=== PATIENT | male | born 1965 | race Caucasian/White ===

== ENCOUNTER 2016-06-03 12:31 | Emergency (ER) | payer BC, OTHER ==
[~2016-06-03] VITALS: Ht 172.7 cm; Wt 91.5 kg
[~2016-06-03 12:31] MED LIST: CALCTAB5 PO; IPRA17AE2 INH; PANT40TA PO; RANI300T2 PO; SOTA80TA PO; SUCR1TAB PO; TPRSR100 PO; WARF5TAB90 PO; [UNRECOGNIZED DRUG - CODE]
[2016-06-03 12:40] VITALS: TEMP 36.8; Ht 172.7 cm; Wt 91.5 kg
[2016-06-03] MEDS ORDERED: CETI10TA10 PO (13:04)
[2016-06-03] MEDS ORDERED: VTMD1000 PO (13:04)
[2016-06-03] MEDS ORDERED: CALC600T PO (14:31)
[2016-06-03] MEDS ORDERED: FLUT0.15 NAE (14:32)
[2016-06-03] MEDS ORDERED: ATRIN INH (14:32)
[2016-06-03] MEDS ORDERED: LISI-729 PO (14:33)
[2016-06-03] MEDS ORDERED: METO25TA3 PO (14:33)
[2016-06-03 15:07] LABS: BASO % 0.4 %; BASO ABS # 0.05 K/uL (0-0.2); COMPLETE YES; EOS % 0.5 %; HEMATOCRIT 44.4 % (42-52); IG% 0.4 %; LYMPH % 24.4 %; LYMPH ABS # 2.86 K/uL (1.2-3.4); MEAN CELL VOLUME 89.3 fL (80-100); MEAN CORPUSCULAR HGB CONC 35.8 g/dl (32-36); MEAN PLATELET VOLUME 10.1 fL (7.4-10.4); MONO % 10.7 %; NEUT % 63.6 %; PLATELET COUNT 250 K/uL (130-400); RED BLOOD COUNT 4.97 M/uL (4.7-6.1); WHITE BLOOD COUNT 11.73 K/uL (4.8-10.8)
[2016-06-03 15:36] LABS: BLOOD UREA NITROGEN 8 mg/dl (7-18); BUN/CREATININE RATIO 9.8 (10-20); CALCIUM 9.6 mg/dl (8.5-10.1); CARBON DIOXIDE 30 mmol/L (21-32); CHLORIDE 103 mmol/L (98-107); CREATININE 0.85 mg/dl (0.60-1.40); GLUCOSE 99 mg/dl (70-99); MAGNESIUM 2.2 mg/dl (1.8-2.4); POTASSIUM 3.9 mmol/L (3.5-5.1); SODIUM 139 mmol/L (136-145)
--- NOTE | 2016-06-03 15:45 | DIAGNOSTIC IMAGING REPORT ---
SINGLE VIEW CHEST CLINICAL HISTORY: Cough. FINDINGS: An AP, portable, upright chest radiograph is compared to study dated 11/17/2014. The examination is degraded by portable technique and apical lordotic positioning. The patient is status post midline sternotomy and cardiac valve surgery. The heart is enlarged. The pulmonary vasculature is noncongested. The lungs and pleural spaces are clear. No pneumothorax is seen. The bony thorax is grossly intact. IMPRESSION: Cardiomegaly with no acute cardiopulmonary abnormality. Electronically signed by: Ivan Maya M.D. 06/03/2016 3:43 PM Dictated Date/Time: 06/03/2016 3:42 PM
[2016-06-03] MEDS ORDERED: AMOX875T PO (15:54)
[2016-06-03 16:54] VITALS: BP 128/83; PULSE 61; O2SAT 96
--- NOTE | 2016-06-03 17:55 | EMERGENCY ROOM VISIT NOTE ---
History Report prepared by Ambre: Kirsty Alexandra Under the Supervision of: Dr. Pasquale Lyles M.D. First contact with patient: 14:33 Chief Complaint: CARDIAC ASSESSMENT Stated Complaint: COUGHING UP FLUID, EYES HURT, POSSIBLE AFIB. Nursing Triage Summary: Triage note Pt reports "i have a bad sinus headache and my eyes hurt and i am blowing my nose throwing up, i think i have been tripping back and forth between a-fib ." pt reports pain in right lower back since 1130. History of Present Illness The patient is a 50 year old male who presents to the Emergency Room with complaints of worsened sinus pressure since yesterday. The patient has a history of sinus infections and states that he has been symptomatic for several months. He was initially on antibiotics "a long while ago" without improvement of his symptoms. He also complains of sinus congestion. Today, the patient had a productive cough with clear mucus that resolved about an hour ago. He has a history of chronic intermittent a-fib and he states that his presenting symptom is a cough. He was concerned that he may have been in atrial fibrillation. He is on Sotalol. He states his heart rate was previously in the 30s and so his sotalol was decreased. Denies chest pain, shortness of breath, or other complaints. He is on Plavix and aspirin. He is not a smoker. Source of History: patient Onset: yesterday Position: other (sinuses) Quality: pressure Timing: worsening Modifying Factors (Worsening): other (light) Associated Symptoms: + cough (resolved), No SOB, No chest pain Note: Other symptoms: congestion Review of Systems See HPI for pertinent positives & negatives. A total of 10 systems reviewed and were otherwise negative. Past Medical & Surgical Medical Problems: (1) A-fib Surgical Problems: (1) H/O mitral valve repair Family History Diabetes mellitus FHx: gallbladder disease Hypertension Social History Smoking Status: Never Smoker Alcohol Use: none Marital Status: Housing Status: lives with family Occupation Status: employed Current/Historical Medications Scheduled Amoxicillin & Pot Clavulanate (Augmentin 875-125 mg), 875 MG PO BID Aspirin (Aspirin Chewable), 81 MG PO DAILY Calcium Carbonate (Calcium 600), 600 MG PO DAILY Cetirizine Hcl (Zyrtec), 10 MG PO DAILY Cholecalciferol (Vitamin D3), 5,000 UNITS PO DAILY Fluticasone Propionate (Nasal) (Flonase Allergy Relief), 2 SPRAYS DEMARCO DAILY Ipratropium [place] (Atrovent Hfa), 2 PUFFS INH QID Lisinopril (Zestril), 5 MG PO DAILY Metoprolol Succ (Toprol Xl) (Toprol-Xl), 25 MG PO BID Ranitidine (Zantac), 300 MG PO DAILY Sotalol Hcl (Sotalol Hcl), 1 TAB PO BID Allergies Coded Allergies: BEE STING (Unverified Allergy, Unknown, DIFFICULTY BREATHING, 06/03/16) Physical Exam Vital Signs Date Time Temp Pulse Resp B/P Pulse Ox O2 Delivery O2 Flow Rate FiO2 06/03/16 16:54 61 24 128/83 96 06/03/16 14:35 50 18 148/90 06/03/16 14:35 49 06/03/16 12:40 36.8 49 18 175/93 97 Room Air Physical Exam Constitutional: Vital signs reviewed. Eyes: Pupils are equal round reactive to light. Conjunctiva are noninjected. ENT: Sinus tenderness to the maxillary sinuses. Inflamed nasal turbinates bilaterally. Pharynx is clear without erythema or exudate. Mucous membranes are moist. Neck supple without meningeal signs. Respiratory: Clear to auscultation bilaterally. Breath sounds are equal bilaterally. Cardiovascular: Bradycardic at 50 BPM and regular rhythm. No rubs or gallops. GI: Soft, nondistended and nontender. Bowel sounds are present. Musculoskeletal: No peripheral edema. No lower extremity tenderness. Integumentary: No cyanosis. Neurological: The patient is awake and alert. No focal deficits. Psychiatric: Normal affect. Medical Decision & Procedures ER Provider Diagnostic Interpretation: Radiology results as stated below per my review and the radiologist's interpretation: SINGLE VIEW CHEST CLINICAL HISTORY: Cough. FINDINGS: An AP, portable, upright chest radiograph is compared to study dated 11/17/2014. The examination is degraded by portable technique and apical lordotic positioning. The patient is status post midline sternotomy and cardiac valve surgery. The heart is enlarged. The pulmonary vasculature is noncongested. The lungs and pleural spaces are clear. No pneumothorax is seen. The bony thorax is grossly intact. IMPRESSION: Cardiomegaly with no acute cardiopulmonary abnormality. Electronically signed by: Ivan Maya M.D. 06/03/2016 3:43 PM Dictated Date/Time: 06/03/2016 3:42 PM Laboratory Results 06/03/16 14:40 Red Blood Count 4.97, Mean Corpuscular Volume 89.3, Mean Corpuscular Hemoglobin 32.0, Mean Corpuscular Hemoglobin Concent 35.8, Mean Platelet Volume 10.1, Neutrophils (%) (Auto) 63.6, Lymphocytes (%) (Auto) 24.4, Monocytes (%) (Auto) 10.7, Eosinophils (%) (Auto) 0.5, Basophils (%) (Auto) 0.4, Neutrophils # (Auto ) 7.46, Lymphocytes # (Auto) 2.86, Monocytes # (Auto) 1.25, Eosinophils # (Auto ) 0.06, Basophils # (Auto) 0.05 06/03/16 14:40 Test 06/03/16 14:40 White Blood Count 11.73 K/uL (4.8-10.8) Red Blood Count 4.97 M/uL (4.7-6.1) Hemoglobin 15.9 g/dL (14.0-18.0) Hematocrit 44.4 % (42-52) Mean Corpuscular Volume 89.3 fL (80-100) Mean Corpuscular Hemoglobin 32.0 pg (25-34) Mean Corpuscular Hemoglobin Concent 35.8 g/dl (32-36) Platelet Count 250 K/uL (130-400) Mean Platelet Volume 10.1 fL (7.4-10.4) Neutrophils (%) (Auto) 63.6 % Lymphocytes (%) (Auto) 24.4 % Monocytes (%) (Auto) 10.7 % Eosinophils (%) (Auto) 0.5 % Basophils (%) (Auto) 0.4 % Neutrophils # (Auto) 7.46 K/uL (1.4-6.5) Lymphocytes # (Auto) 2.86 K/uL (1.2-3.4) Monocytes # (Auto) 1.25 K/uL (0.11-0.59) Eosinophils # (Auto) 0.06 K/uL (0-0.5) Basophils # (Auto) 0.05 K/uL (0-0.2) RDW Standard Deviation 44.7 fL (36.4-46.3) RDW Coefficient of Variation 13.7 % (11.5-14.5) Immature Granulocyte % (Auto) 0.4 % Immature Granulocyte # (Auto) 0.05 K/uL (0.00-0.02) Anion Gap 6.0 mmol/L (3-11) Est Creatinine Clear Calc Drug Dose 115.4 ml/min Estimated GFR () 118.6 Estimated GFR (Non- 102.3 BUN/Creatinine Ratio 9.8 (10-20) Calcium Level 9.6 mg/dl (8.5-10.1) Magnesium Level 2.2 mg/dl (1.8-2.4) Troponin I < 0.015 ng/ml (0-0.045) Thyroid Stimulating Hormone (TSH) 1.770 uIu/ml (0.300-4.500) Free Thyroxine 1.10 ng/dl (0.80-1.60) Laboratory results as reviewed by me. ECG Indication: other (patient thinks he is in a-fib) Rate (beats per minute): 48 Rhythm: other (narrow complex rhythm) Findings: no acute ischemic change, no ectopy ED Course 1500: The patient was evaluated in room B7. A complete history and physical exam was performed. 1553: I discussed the case with Dr. [place]tero - [facility] He said that the office will call the patient to get him on a Holter monitor. 1555: Upon reevaluation, the patient was hemodynamically stable. I discussed tonight's findings with the patient. He verbalized agreement of the treatment plan. The patient was discharged home. Medical Decision This is a 50-year-old male who presents with sinus symptoms and cough. I did perform a limited focused review of portions of the patient's old chart on the electronic medical record. The patient has had no recent pertinent visits to this hospital. I did evaluate the patient as noted above. The patient is presenting with sinus symptoms. He appears to have a sinus infection. He has also had a cough but he wasn't sure if he went into atrial fibrillation as his presenting symptoms with atrial fibrillation is a bad cough. IV access was established. The patient was placed on a continuous quotation clerk. He does have sinus bradycardia on the monitor. P waves are visible. He states his heart rate was lower previously and that 50 is higher than his normal. I did order and personally review the patient's 12-lead EKG and chest x-ray as described above. I did order and review the patient's blood work as noted in the electronic medical record. I did discuss the case with his brine process operator. He stated that he would arrange for a Holter monitor for the patient to see if he goes into atrial fibrillation. His cough may have been just secondary to infectious causes. I did discuss the plan with the patient. He was happy with plan. He was discharged with a prescription for Augmentin for sinus infection. Consults Time Called: 1550 Consulting Physician: Dr. Montero - [facility] Returned Call: 1553 I discussed the case with him. He said that the office will call the patient to get him on a Holter monitor. Impression Primary Impression: Acute sinusitis Additional Impression: Bradycardia Scribe Attestation The scribe's documentation has been prepared under my direct and personally reviewed by me in its entirety. I confirm that the note above accurately reflects all work, treatment, procedures, and medical decision making performed by me. Departure Information Dispostion Home / Self-Care Prescriptions Amoxicillin & Pot Clavulanate (Augmentin 875-125 mg) 1 Tab Tab 875 MG PO BID for 10 Days, #20 TAB Prov: Pasquale Lyles M.D. 06/03/16 Referrals Adi Benton D.O.[facility]. (PCP) Patient Instructions ED Sinusitis Abx Tx, [facility] Additional Instructions You have been examined and treated today on an emergency basis only. This is not a substitute for, or an effort to provide, complete comprehensive medical care. It is impossible to recognize and treat all injuries or illnesses in a single emergency department visit. It is therefore important that you follow up closely with your physician. Call as soon as possible for an appointment. Return for worsening symptoms or if you develop fever, vomiting, chest pain, shortness of breath or any other concerning symptoms. Your brine process operator's office will call you to set up a Holter monitor. Problem Qualifiers Primary Impression: Acute sinusitis Sinusitis location: maxillary
[2016-06-03] MEDS ORDERED: ASPCH81X PO (18:08)
== END 2016-06-03 16:55 | disposition home or self-care (01) ==
LOC: C.EDB 12:33
DX: J01.00 Acute maxillary sinusitis, unspecified (principal); R05 Cough; I51.7 Cardiomegaly; R00.1 Bradycardia, unspecified

== ENCOUNTER → 2016-06-25 | Outpatient (CLI) | payer BC ==
[~2016-06-25] MED LIST changes: +ASPCH81X PO; +ATRIN INH; +CALC600T PO; -CALCTAB5 PO; +CETI10TA10 PO; +FLUT0.15 NAE; -IPRA17AE2 INH; +LISI-729 PO; +METO25TA3 PO; -PANT40TA PO; -SUCR1TAB PO; -TPRSR100 PO; +VTMD1000 PO; -WARF5TAB90 PO; -[UNRECOGNIZED DRUG - CODE]
--- NOTE | 2016-06-25 16:04 | DIAGNOSTIC IMAGING REPORT ---
Study: Fusion CT of the sinuses HISTORY: Chronic sinusitis. FINDINGS: Mild hypertrophic change of the nasal turbinates. This creates mild nasal occlusive change. Major sinuses are considered clear. The ostiomeatal units are patent bilaterally. Osseous structures show no evidence for destructive process. IMPRESSION: 1. Moderate hypertrophic change of the nasal turbinates creating a component of nasal occlusive change. 2. Sinuses otherwise are clear. Electronically signed by: Melecio Longo M.D. 06/25/2016 4:02 PM Dictated Date/Time: 06/25/2016 3:59 PM
== END | disposition home or self-care (01) ==
LOC: C.CTS 15:32
DX: J32.9 Chronic sinusitis, unspecified (principal)

== ENCOUNTER → 2017-03-25 | Outpatient (CLI) | payer BC | END | disposition home or self-care (01) | LOC: C.LABSPEC 14:01 | PROVIDERS: ATTEND Family Medicine | DX: J02.9 Acute pharyngitis, unspecified (principal) ==

== ENCOUNTER → 2017-05-30 | Outpatient (CLI) | payer BC ==
[2017-05-30 15:43] LABS: ALT/SGPT 30 U/L (12-78); AST/SGOT 11 U/L (15-37)
== END | disposition home or self-care (01) ==
LOC: C.LAB1850 14:15
PROVIDERS: ATTEND Internal Medicine Cardiovascular Disease
DX: R74.0 Nonspecific elevation of levels of transaminase and lactic acid dehydrogenase [LDH] (principal)

== ENCOUNTER → 2017-11-05 | Day surgery (SDC) | payer BC ==
[2017-11-04 08:49] VITALS: Ht 172.7 cm; Wt 83.2 kg
[~2017-11-05] VITALS: Ht 172.7 cm; Wt 83.2 kg
[~2017-11-05] MED LIST changes: +ALBINS/ INH; +AMOX500C3 PO; -CALC600T PO; +EPP3/2 IM; +LIDOCAINE HCL 2% 2 ML VIAL (20MG/ML) ONE; -METO25TA3 PO; +MULT-842 PO; +NXM/40 PO; +PANT40TA PO; +PROPOFOL IV EMULSION 10 MG/ML 20 ML VIAL ONE; +SODIUM CHLORIDE 0.9% 500ML 500 ML IV ONE; +SOTA120T PO; -SOTA80TA PO
--- NOTE | 2017-11-05 14:53 | Endo History and Physical ---
History & Physical Date of Service: Nov 05, 2017. Chief Complaint: GERD Referring Physician: Dr. Clarissa Steiner History of Present Illness 52 yo CM who presents for EGD secondary to GERD. Past Medical History Diabetes, Hypertension, Other Past Surgical History Hx Cardiac Surgery: Yes (MITRAL VALVE REPAIR & RING PLACEMENT 2007, ABLATION X2 , CARDIOVERSION X4) Hx Internal Defibrillator: No Hx Pacemaker: No Hx Abdominal Surgery: No Hx of Implantable Prosthesis: No Hx Post-Op Nausea and Vomiting: No Hx Cancer Surgery: No Hx Thoracic Surgery: No Hx Orthopedic: No Hx Urinary Tract Surgery: No Family History None Social History Smoking Status: Never Smoker Hx Substance Use: No Hx Alcohol Use: No Allergies Coded Allergies: BEE STING (Verified Allergy, Unknown, DIFFICULTY BREATHING, 11/05/17) Current Medications Reported Home Medications Medications Dose Route/Sig Max Daily Dose Days Date Category Dose Instructions Proventil 0.083% 2.5MG/3ML (Albuterol Sulf) 2.5 Mg/3 Ml Nebu 2.5 Mg INH QID PRN 11/04/17 Reported Amoxil (Amoxicillin) 500 Mg Cap 2,000 Mg PO DIRECTED PRN 11/04/17 Reported Epipen (Epinephrine) 0.3 Mg/0.3 Ml Inj 0.3 Mg IM UD 11/04/17 Reported Protonix (Pantoprazole Sodium) 40 Mg Tab 40 Mg PO BID 11/04/17 Reported Sotalol Hcl 120 Mg Tab 120 Mg PO BID 30 08/13/17 Rx Jean-Paul Mag Zinc +D3 (Multiple Minerals W/ Vitamins) 1 Tab Tab 1 Tab PO DAILY 08/11/17 Reported Zestril (Lisinopril) 5 Mg Tab 5 Mg PO DAILY 06/03/16 Reported Flonase Allergy Relief (Fluticasone Propionate (Nasal)) 50 Mcg/Act Spr 2 Sprays DEMARCO DAILY PRN 06/03/16 Reported Atrovent Hfa (Ipratropium [place]) 200 Puffs/3400 Mcg Aers 2 Puffs INH QID PRN 06/03/16 Reported Zantac (Ranitidine HCl) 300 Mg Tab 300 Mg PO DAILY 01/20/15 Reported Zyrtec (Cetirizine Hcl) 10 Mg Tab 10 Mg PO DAILY 06/08/14 Reported PT TAKES NEEDED Vitamin D3 (Cholecalciferol) 1,000 Inter.unit Tab 5,000 Units PO DAILY 06/08/14 Reported Aspirin Chewable (Aspirin) 81 Mg Chew 81 Mg PO DAILY 06/20/13 Reported Vital Signs Weight (Kilograms): 83.18 Height (Feet): 5 Height (Inches): 8 Date Time Temp Pulse Resp B/P (MAP) Pulse Ox O2 Delivery O2 Flow Rate FiO2 11/05/17 14:29 36.5 45 20 144/84 (104) 99 Room Air Physical Exam General Appearance: WD/WN, no apparent distress Respiratory/Chest: Auscultation: breath sounds normal Cardiovascular: Heart Auscultation: RRR Abdomen: Bowel Sounds: normal Inspection & Palpation: soft, non-distended, no tenderness, guarding & rebound Assessment and Plan Assessment: 52 yo CM who presents for EGD secondary to GERD. Plan: Proceed with EGD.
--- NOTE | 2017-11-05 15:20 | Discharge Instructions ---
Endoscopy Patient Instructions Date / Procedure(s) Performed Nov 05, 2017. EGD Allergy Information Coded Allergies: BEE STING (Verified Allergy, Unknown, DIFFICULTY BREATHING, 11/05/17) Discharge Date / Findings Nov 05, 2017. Gastritis s/p biopsies Hiatal hernia Medication Instructions Stopped Medication(s): Patient stated he was never told to stop any of his meds. 1) Stop Zantac (ranitidine) 2) Increase Pantoprazole to 40mg by mouth twice daily, 1/2 hour prior to breakfast and dinner. 3) OK to resume all other medications today as prescribed Reported Home Medications Medications Dose Route/Sig Max Daily Dose Days Date Category Dose Instructions Proventil 0.083% 2.5MG/3ML (Albuterol Sulf) 2.5 Mg/3 Ml Nebu 2.5 Mg INH QID PRN 11/04/17 Reported Amoxil (Amoxicillin) 500 Mg Cap 2,000 Mg PO DIRECTED PRN 11/04/17 Reported Epipen (Epinephrine) 0.3 Mg/0.3 Ml Inj 0.3 Mg IM UD 11/04/17 Reported Protonix (Pantoprazole Sodium) 40 Mg Tab 40 Mg PO BID 11/04/17 Reported Sotalol Hcl 120 Mg Tab 120 Mg PO BID 30 08/13/17 Rx Jean-Paul Mag Zinc +D3 (Multiple Minerals W/ Vitamins) 1 Tab Tab 1 Tab PO DAILY 08/11/17 Reported Zestril (Lisinopril) 5 Mg Tab 5 Mg PO DAILY 06/03/16 Reported Flonase Allergy Relief (Fluticasone Propionate (Nasal)) 50 Mcg/Act Spr 2 Sprays DEMARCO DAILY PRN 06/03/16 Reported Atrovent Hfa (Ipratropium [place]) 200 Puffs/3400 Mcg Aers 2 Puffs INH QID PRN 06/03/16 Reported Zantac (Ranitidine HCl) 300 Mg Tab 300 Mg PO DAILY 01/20/15 Reported Zyrtec (Cetirizine Hcl) 10 Mg Tab 10 Mg PO DAILY 06/08/14 Reported PT TAKES NEEDED Vitamin D3 (Cholecalciferol) 1,000 Inter.unit Tab 5,000 Units PO DAILY 06/08/14 Reported Aspirin Chewable (Aspirin) 81 Mg Chew 81 Mg PO DAILY 06/20/13 Reported Provider Instructions Activity Restrictions - No exercising or heavy lifting for 24 hours. - Do not drink alcohol the day of the procedure. - Do not drive a car or operate machinery until the day after the procedure. - Do not make any important decisions or sign important papers in 24 hours after the procedure. Following Day: - Return to full activity which may include returning to work/school. Diet Start your diet with liquids and light foods (jello, soup, juice, toast). Then eat your usual diet if not nauseated. Treatment For Common After Affects For mild abdominal pain, bloating, or excessive gas: - Rest - Eat lightly - Lie on right side Follow-Up Information Follow-up with Dr. Clarissa Steiner as scheduled Anesthesia Information What You Should Know You have had a procedure that required some medicine to reduce anxiety and discomfort. This treatment is called moderate sedation. After receiving the treatment, you may be sleepy, but you will be able to breathe on your own. The effects of the treatment may last for several hours. Follow these instructions along with Activity/Diet recommendations noted above: * Do NOT do anything where dizziness or clumsiness would be dangerous. * Rest quietly at home today, then you can be up and about tomorrow. * Have a responsible person stay with you the rest of today. * You may have had an I.V. today. If so, you may take the dressing off later today. Recommendations Call your doctor if: * Trouble breathing * Continuous vomiting for more than 24 hours * Temperature above 101 degrees * Severe abdominal pain or bloating * Pain not relieved by pain medicine ordered * There is increased drainage or redness from any incision * A large amount of rectal bleeding greater than 2-3 tablespoons. (If you had a polyp/s removed or have hemorrhoids, a small amount of blood - from the rectum is to be expected.) * You have any unanswered questions or concerns. IN THE EVENT OF A SERIOUS EMERGENCY, GO TO THE NEAREST EMERGENCY ROOM Your discharge instructions were prepared by provider Rajeev Mercado. Patient Instructions Signature Page Lencho Matthews Patient (or Guardian) Signature/Date: I have read and understand the instructions given to me by my caregivers. Caregiver/RN/Doctor Signature/Date: The above-named patient and/or guardian has received patient instructions on this date. + Original Patient Signature Page (only) stays with chart. Please make copy for patient.
--- NOTE | 2017-11-05 15:24 | GI REPORT ---
Patient Name: Lencho Matthews Procedure Date: 11/05/2017 3:00 PM Date of : 1965 Admit Type: Outpatient Age: 52 Gender: Male Attending MD: Rajeev Mercado DO Procedure: Upper GI endoscopy Providers: Rajeev Mercado DO Referring MD: Clarissa Steiner Indications: Follow-up of gastro-esophageal reflux disease Medicines: Monitored Anesthesia Care Complications: No immediate complications. Estimated Blood Loss: Estimated blood loss: none. Procedure: Pre-Anesthesia Assessment: - Prior to the procedure, a History and Physical was performed, and patient medications and allergies were reviewed. The patient's tolerance of previous anesthesia was also reviewed. The risks and benefits of the procedure and the sedation options and risks were discussed with the patient. All questions were answered, and informed consent was obtained. Prior Anticoagulants: The patient has taken aspirin, last dose was day of procedure. ASA Grade Assessment: III - A patient with severe systemic disease. After reviewing the risks and benefits, the patient was deemed in satisfactory condition to undergo the procedure. After obtaining informed consent, the endoscope was passed under direct vision. Throughout the procedure, the patient's blood pressure, pulse, and oxygen saturations were monitored continuously. The scope was introduced through the mouth, and advanced to the second part of duodenum. The upper GI endoscopy was accomplished without difficulty. The patient tolerated the procedure well. Findings: The esophagus was normal. A small hiatal hernia was present. Localized mild inflammation characterized by erythema was found in the gastric antrum. The examined duodenum was normal. Impression: - Normal esophagus. - Small hiatal hernia. - Gastritis. - Normal examined duodenum. - No specimens collected. Recommendation: - Resume previous diet. - Continue present medications. - Await pathology results. - Return to primary care physician as previously scheduled. Rajeev Mercado DO 11/05/2017 3:23:49 PM This report has been signed electronically. Note Initiated On: 11/05/2017 3:00 PM Number of Addenda: 0 I attest to the content of the Intraoperative Record and orders documented therein, exceptions below {[id number]}
--- NOTE | 2017-11-05 15:32 | Anesthesiology Progress Note ---
Anesthesia Post Op Note Date & Time Nov 05, 2017 at 15:32 Vital Signs Pain Intensity: 0 Vital Signs Past 12 Hours Date Time Temp Pulse Resp B/P (MAP) Pulse Ox O2 Delivery O2 Flow Rate FiO2 11/05/17 15:23 36.5 57 16 92/58 (69) 96 Room Air 11/05/17 14:29 36.5 45 20 144/84 (104) 99 Room Air Notes Mental Status: alert / awake / arousable, participated in evaluation Pt Amnestic to Procedure: Yes Nausea / Vomiting: adequately controlled Pain: adequately controlled Airway Patency, RR, SpO2: stable & adequate BP & HR: stable & adequate Hydration State: stable & adequate Anesthetic Complications: no major complications apparent
[2017-11-05 15:52] VITALS: BP 125/76; PULSE 45; O2SAT 98
--- NOTE | 2017-11-12 08:28 | EDITING REQUIRED CODING QUERY ---
DOCUMENTATION CLARIFICATION Please provide further clarification regarding the EGD performed on 11/05/17 due to conflicting documentation within the record. Procedure note states "no specimens collected" and also "await pathology results". Account also has a pathology report. Please indicate below if a biopsy or other type of procedure was performed, etc. during the EGD: ( ) No biopsy and/or other procedure other than diagnostic EGD was performed. ( x ) Biopsy and/or other procedure was performed during EGD, please clarify below: ( x ) Addendum dictated ( x ) Description of procedure: EGD with biopsies of the gastric antrum ( ) Other, please clarify: Thank you for your assistance, Tonya Massey - Coach Operator
== END | disposition home or self-care (01) ==
LOC: C.GI 13:50
PROVIDERS: ATTEND Internal Medicine
DX: K21.9 Gastro-esophageal reflux disease without esophagitis (principal); K44.9 Diaphragmatic hernia without obstruction or gangrene; I11.0 Hypertensive heart disease with heart failure; I48.91 Unspecified atrial fibrillation; E11.9 Type 2 diabetes mellitus without complications; I42.9 Cardiomyopathy, unspecified; L40.9 Psoriasis, unspecified; M19.90 Unspecified osteoarthritis, unspecified site; Z91.030 Bee allergy status; Z79.82 Long term (current) use of aspirin

== ENCOUNTER 2022-05-17 16:05 | Inpatient (IN) ==
--- NOTE | 2022-05-17 16:28 | ED Triage Note ---
Date of Service May 17, 2022 History of Present Illness This patient was briefly evaluated while in triage. An abbreviated physical exam was performed. This patient is a 56-year-old Male who presents to the ED for evaluation of 3 days of lower abdominal pain and vomiting. He also thinks he is in atrial fi brillation and believes he went into this starting Friday due to his GI issues. Was sent over from cardiology today to evaluate his abdominal pain. Takes aspirin, no other blood thinners. History of diverticulitis. Physical Exam CONSTITUTIONAL: in no acute pain or distress, resting comfortably SKIN: pink, warm, dry CARDIAC: tachycardic rate and irregular rhythm RESPIRATORY: in no respiratory distress, lungs clear to auscultation ABDOMEN: normal bowel sounds, tender in suprapubic and LLQ Initial orders for labs and / or imaging were placed and patient was placed in the waiting area until a bed is available. Please see further documentation for the full ED course. MDM / Impression Impression Impression: Right lower quadrant abdominal pain
[2022-05-17 18:11] LABS: Basophils # (auto) 0.05 K/uL (0-0.2); Basophils % (auto) 0.5 %; Eosinophils # (auto) 0.07 K/uL (0-0.50); Eosinophils % (auto) 0.6 %; Hematocrit (blood only) 44.9 % (42.0-52.0); Hemoglobin 15.5 g/dl (14.0-18.0); Immature Granulocytes # (auto) 0.04 K/uL (0.01-0.20); Immature Granulocytes % (auto) 0.4 %; Lymphocytes # (auto) 2.22 K/uL (1.2-3.4); Mean Corpuscular Hemoglobin 30.6 pg (25.0-34.0); Mean Corpuscular Hgb Conc 34.5 g/dL (32.0-36.0); Mean Corpuscular Volume 88.6 fL (80.0-100.0); Mean Platelet Volume 9.7 fL (9.4-12.4); Monocytes # (auto) 1.14 K/uL (0.11-0.59); Monocytes % (auto) 10.3 %; Neutrophils # (auto) 7.57 K/uL (1.40-6.50); Neutrophils % (auto) 68.2 %; Platelet Count 244 K/uL (130-400); RDW Coefficient of Variation 12.8 % (11.5-14.5); RDW Standard Deviation 41.7 fL (36.4-46.3); Red Blood Count 5.07 M/uL (4.70-6.10); White Blood Count 11.09 K/ul (4.8-10.8)
[2022-05-17 18:29] LABS: Albumin Globulin Ratio 1.3 (0.9-2); Albumin Level 4.5 gm/dl (3.4-5.0); BUN Creatinine Ratio 16.7 (10-20); Bilirubin,Total 0.8 mg/dl (0.2-1.0); Calcium 9.8 mg/dl (8.5-10.1); Creatinine Clr Calc Pharmacy 107.5 ml/min; Est GFR (African American) 114.2 ml/min; Est GFR (Non-African American) 98.6 ml/min; Globulin 3.5 gm/dl (2.5-4.0); Potassium 4.1 mmol/L (3.5-5.1)
[2022-05-17 18:34] LABS: Troponin I High Sensitivity 33.8 pg/ml (0-20)
[2022-05-17 18:47] LABS: Appearance Urine Clear (Clear); Bacteria Urine Automated Negative (Negative); Bilirubin Urine Negative (Negative); Blood Urine 1+ (Negative); Cast Urine Automated 0 /lpf (0-5); Color Urine Yellow; Epithelial Cell Urine Auto 0-5 /lpf (0-5); Glucose Urine UA Negative (Negative); Ketones Urine 2+ (Negative); Leukocyte Esterase Urine Negative (Negative); Nitrite Urine Negative (Negative); Protein Urine Negative (Negative); RBC Urine Automated 0-4 /hpf (0-4); Specific Gravity Urine 1.014 (1.000-1.030); Urobilinogen Urine Negative (Negative); pH Urine 5.5 (4.5-7.5)
[2022-05-17] MEDS ORDERED: SOTALOL HCL 80 MG TAB PO ONE (19:16)
[2022-05-17] MEDS ORDERED: lisinopril 5 MG TAB PO ONE (19:16)
[2022-05-17] MEDS ORDERED: SODIUM CHLORIDE 0.9% 1000ML 1,000 ML IV ONE (19:16)
--- NOTE | 2022-05-17 19:38 | Emergency Department Note ---
Impression & Plan Right lower quadrant abdominal pain ED Provider Note INFORMANT: Patient ED PROVIDER(S): Sameer Moore DO CHIEF COMPLAINT: Right lower quadrant abdominal pain PLAN: Disposition: Admission Outpatient prescription management: none Discussion with: I spoke with the hospitalist, who will see the patient for admission/observation and further evaluation and consultation. MEDICAL DECISION MAKING: This is a 56-year-old male who presents to the ED with a chief complaint of right lower quadrant abdominal pain. He also reports nausea, vomiting diarrhea he has not had anything to eat since last night and has only had a small amount of fluids today. He has been burping a lot and has flatus. His symptoms started 3 days ago when he was in [place]. 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 His A-fib started when he was vomiting a couple of days ago. He states that he knows when he goes into it. Dr. Montero sent the patient for further evaluation of his abdomen. They did give him some IV fluids 500 cc normal saline bolus in the office and this did not change his heart rate. They found him to be in atrial flutter at a heart rate of 124. The patient has some tenderness to the right lower quadrant on my exam. He is also tachycardic. Otherwise abdomen is nontender. Exam is otherwise unremarkable. Vital signs reveal tachycardia with a heart rate of 122. His twelve-lead EKG here shows atrial flutter at a rate of 122. No ST elevations. No PVCs. CBC shows no significant leukocytosis. Chemistry panel showed no electrolyte abnormality or kidney dysfunction. Troponin was mildly elevated through 3.8. This is likely related to his ongoing tachycardia with his atrial flutter. Urine showed 2+ ketones. Lipase was negative for pancreatitis. The patient was given IV fluids. He was given 1 L normal saline IV. He was also given IV metoprolol. Heart rate improved slightly with the metoprolol and the IV fluids. He continues in atrial flutter. The patient will be seen by the hospitalist for further evaluation and care. Triage Nursing notes reviewed. Vital Signs: reviewed Prior /Outside records reviewed: Cardiology note from today request CT scan of the abdomen pelvis. Differential diagnosis: Differential includes appendicitis, diverticulitis, cholecystitis, viral syndrome, other Diagnostics, as interpreted by me: 12 lead ECG: Atrial fibrillation at a rate of 124. No ST elevation. No PVCs. Normal QTc. Cardiac Monitoring ordered: Atrial fibrillation in the 120s Medical decision rules:[id number] Score: Anticoag not indicated Imaging studies: Chest x-ray: No acute disease. No pneumothorax or pneumonia. Procedures: none. Critical care: none. HPI: See MDM above. PAST MEDICAL HISTORY: See Below PAST SURGICAL HISTORY: See Below SOCIAL HISTORY: See Below HOME MEDICATIONS: See Below ALLERGIES: See Below VITALS: See Below PHYSICAL EXAMINATION: See MDM for positive findings otherwise unremarkable. CONSTITUTIONAL/VITAL SIGNS: Reviewed GENERAL:done as appropriate INTEGUMENTARY: done as appropriate HEAD: done as appropriate EYES: done as appropriate RESPIRATORY: done as appropriate CARDIOVASCULAR:done as appropriate GI/ABDOMEN:done as appropriate EXTREMITIES: done as appropriate NEUROLOGICAL: done as appropriate PSYCHIATRIC:done as appropriate MUSCULOSKELETAL:done as appropriate TRIAGE NURSING DOCUMENTATION REVIEWED. Past Med/Surg History Medical History Allergic rhinitis Chronic sinusitis COVID-19 virus detected Dyslipidemia GERD (gastroesophageal reflux disease) Hiatal hernia with gastroesophageal reflux History of cardiomyopathy History of peptic ulcer Mitral valve disorder Paroxysmal atrial fibrillation Psoriasis Reactive airway disease Sinus bradycardia Tinnitus Surgical History History of cardioversion History of colonoscopy History of esophagogastroduodenoscopy (EGD) History of mitral valve repair (2007) History of tooth extraction Status post catheter ablation of atrial fibrillation Family History Mother Bleeding disorder Allergic rhinitis Hypertension Brother Hypertension Father No problems noted. 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 caffeine: Yes (Coffee x 3 per day. ) during the past year weight has: remained stable Dental Care, Regularly: Yes Physical Activity Frequency: 3-4 Times per Week Seatbelt Use: always Sunscreen Use: No Assistive Devices: Denture - Upper and Glasses Allergies Allergies Allergy/AdvReac Type Severity Reaction Status Date / Time bee venom protein (honey bee) Allergy Severe DIFFICULTY Verified 05/17/22 14:09 BREATHING No Known Drug Allergies Allergy Verified 05/17/22 14:09 Home Meds Home Medications Medication Instructions Recorded Confirmed [id number] acid-vit 1 tab PO DAILY 06/01/20 05/17/22 K-lycop 400 mcg-20 mcg-370 mcg tablet (Men's 50 Plus Multivitamin) cholecalciferol (vitamin D3) 125 125 mcg PO DAILY 11/09/20 05/17/22 mcg (5,000 unit) capsule pantoprazole 40 mg tablet,delayed 40 mg PO DAILY 05/17/22 05/17/22 release Previous Rx's Medication Instructions Recorded albuterol sulfate 2.5 mg/3 mL 2.5 mg (3 mL) inhalation Q4 PRN 09/29/18 (0.083 %) solution for nebulization Shortness Of Breath #180 mL aspirin 81 mg tablet,delayed 81 mg PO QAM #90 tabs 09/29/18 release cetirizine 10 mg tablet (Zyrtec) 10 mg PO HS #90 tabs 09/29/18 ipratropium bromide 17 2 puff inhalation QID PRN 09/29/18 mcg/actuation HFA aerosol inhaler Shortness Of Breath #12.9 grams (Atrovent HFA) epinephrine 0.3 mg/0.3 mL 0.3 mg (0.3 mL) IM Q3H PRN 06/01/20 injection, auto-injector (EpiPen Allergic Reaction #2 ea 2-Kareem) lisinopril 5 mg tablet 5 mg PO QPM #90 tabs 07/20/21 sotalol 80 mg tablet 80 mg PO Q12H #180 tabs 07/27/21 azelastine 137 mcg (0.1 %) nasal 2 spray intranasal BID #90 mL 12/04/21 spray aerosol triamcinolone acetonide 55 mcg 2 spray intranasal DAILY #50.7 mL 12/04/21 nasal spray aerosol (Nasacort Allergy) triamcinolone acetonide 40 mg/mL 40 mg IM .every 8 weeks PRN 12/06/21 suspension for injection (Kenalog) psoriasis #30 mL naproxen 500 mg tablet 500 mg PO BID PRN pain #180 tabs 04/23/22 sucralfate 100 mg/mL oral 10 ml PO QID #420 mL 05/17/22 suspension Results & Data (ED) Vital Signs Vital Signs - 24 hr 05/17/22 16:12 05/17/22 18:24 05/17/22 19:15 Temperature 36.7 C Temperature Source Temporal Artery Scan Pulse Rate 124 H 123 H Pulse Rate [Left Radial] 122 H Pulse Rate from SpO2 Sensor 124 H Pulse Rhythm [Left Radial] Irregular Pulse Strength [Left Radial] Normal Respiratory Rate 18 25 H 14 Respiratory Effort / Characteristics Non-Labored Non-Labored Respiratory Depth Normal Normal Respiratory Pattern Regular Regular Blood Pressure 137/94 143/96 H Blood Pressure [Left Arm] 133/98 Blood Pressure Mean 108 111 Blood Pressure Mean [Left Arm] 109 Blood Pressure Position Sitting Pulse Oximetry 97 99 98 Oxygen Delivery Method Room Air Room Air Room Air Sepsis Recent Fever Within 48 Hours No Sepsis New/Unexplained Change in Mental Status No Sepsis Action Taken by Nursing No Action Required 05/17/22 20:27 05/17/22 21:17 05/17/22 21:46 Temperature Temperature Source Pulse Rate Pulse Rate [Left Radial] 120 H 118 H 106 H Pulse Rate from SpO2 Sensor Pulse Rhythm [Left Radial] Irregular Irregular Irregular Pulse Strength [Left Radial] Normal Normal Normal Respiratory Rate 14 13 15 Respiratory Effort / Characteristics Non-Labored Spontaneous Non-Labored Spontaneous Non-Labored Spontaneous Respiratory Depth Normal Normal Normal Respiratory Pattern Regular Regular Regular Blood Pressure Blood Pressure [Left Arm] 118/89 122/93 122/93 Blood Pressure Mean Blood Pressure Mean [Left Arm] 98 102 102 Blood Pressure Position Pulse Oximetry 98 98 98 Oxygen Delivery Method Room Air Room Air Room Air Sepsis Recent Fever Within 48 Hours Sepsis New/Unexplained Change in Mental Status Sepsis Action Taken by Nursing 05/17/22 22:04 Temperature Temperature Source Pulse Rate Pulse Rate [Left Radial] 105 H Pulse Rate from SpO2 Sensor Pulse Rhythm [Left Radial] Irregular Pulse Strength [Left Radial] Normal Respiratory Rate 14 Respiratory Effort / Characteristics Non-Labored Spontaneous Respiratory Depth Normal Respiratory Pattern Regular Blood Pressure Blood Pressure [Left Arm] 113/90 Blood Pressure Mean Blood Pressure Mean [Left Arm] 97 Blood Pressure Position Pulse Oximetry 98 Oxygen Delivery Method Room Air Sepsis Recent Fever Within 48 Hours Sepsis New/Unexplained Change in Mental Status Sepsis Action Taken by Nursing Laboratory Data 05/17/22 17:55 05/17/22 17:55 Lab Results 05/17/22 05/17/22 05/17/22 Range/Units 17:55 17:55 18:22 WBC 11.09 H (4.8-10.8) K/ul RBC 5.07 (4.70-6.10) M/uL Hgb 15.5 (14.0-18.0) g/dl Hct 44.9 (42.0-52.0) % MCV 88.6 (80.0-100.0) fL MCH 30.6 (25.0-34.0) pg MCHC 34.5 (32.0-36.0) g/dL RDW Std Deviation 41.7 (36.4-46.3) fL RDW Coeff of Mariel 12.8 (11.5-14.5) % Plt Count 244 (130-400) K/uL MPV 9.7 (9.4-12.4) fL Immature Gran % (Auto) 0.4 % Neut % (Auto) 68.2 % Lymph % (Auto) 20.0 % Wagoner % (Auto) 10.3 % Eos % (Auto) 0.6 % Baso % (Auto) 0.5 % Neut # (Auto) 7.57 H (1.40-6.50) K/uL Lymph # (Auto) 2.22 (1.2-3.4) K/uL Wagoner # (Auto) 1.14 H (0.11-0.59) K/uL Eos # (Auto) 0.07 (0-0.50) K/uL Baso # (Auto) 0.05 (0-0.2) K/uL Immature Gran # (Auto) 0.04 (0.01-0.20) K/uL Sodium 137 (136-145) mmol/L Potassium 4.1 (3.5-5.1) mmol/L Chloride 101 (98-107) mmol/L Carbon Dioxide 28 (21-32) mmol/L Anion Gap 8 (3-11) BUN 14 (6-23) mg/dl Creatinine 0.84 (0.6-1.4) mg/dl Est Cr Clr Drug Dosing 107.5 ml/min Est GFR ( Amer) 114.2 ml/min Est GFR (Non-Af Amer) 98.6 ml/min BUN/Creatinine Ratio 16.7 (10-20) Glucose 87 (70-99(Fasting)) mg/dl Calcium 9.8 (8.5-10.1) mg/dl Total Bilirubin 0.8 (0.2-1.0) mg/dl AST 21 (13-39) U/L ALT 20 (7-52) U/L Alkaline Phosphatase 45 (34-104) U/L Troponin I High Sens 33.8 H (0-20) pg/ml Total Protein 8.0 (6.0-8.3) gm/dl Albumin 4.5 (3.4-5.0) gm/dl Globulin 3.5 (2.5-4.0) gm/dl Albumin/Globulin Ratio 1.3 (0.9-2) Lipase 16 (11-82) U/L Urine Color Yellow Urine Appearance Clear (Clear) Urine pH 5.5 (4.5-7.5) Ur Specific Hamel 1.014 (1.000-1.030) Urine Protein Negative (Negative) Urine Glucose (UA) Negative (Negative) Urine Ketones 2+ H (Negative) Urine Blood 1+ H (Negative) Urine Nitrite Negative (Negative) Urine Bilirubin Negative (Negative) Urine Urobilinogen Negative (Negative) Ur Leukocyte Esterase Negative (Negative) Urine WBC (Auto) 1-5 (0-5) /hpf Urine RBC (Auto) 0-4 (0-4) /hpf U Hyaline Cast (Auto) 0 (0-5) /lpf U Epithel Cells (Auto) 0-5 (0-5) /lpf Urine Bacteria (Auto) Negative (Negative) SARS-CoV-2, RNA, NAAT (NEGATIVE) 05/17/22 Range/Units 21:42 WBC (4.8-10.8) K/ul RBC (4.70-6.10) M/uL Hgb (14.0-18.0) g/dl Hct (42.0-52.0) % MCV (80.0-100.0) fL MCH (25.0-34.0) pg MCHC (32.0-36.0) g/dL RDW Std Deviation (36.4-46.3) fL RDW Coeff of Mariel (11.5-14.5) % Plt Count (130-400) K/uL MPV (9.4-12.4) fL Immature Gran % (Auto) % Neut % (Auto) % Lymph % (Auto) % Wagoner % (Auto) % Eos % (Auto) % Baso % (Auto) % Neut # (Auto) (1.40-6.50) K/uL Lymph # (Auto) (1.2-3.4) K/uL W[place]er # (Auto) (0.11-0.59) K/uL Eos # (Auto) (0-0.50) K/uL Baso # (Auto) (0-0.2) K/uL Immature Gran # (Auto) (0.01-0.20) K/uL Sodium (136-145) mmol/L Potassium (3.5-5.1) mmol/L Chloride (98-107) mmol/L Carbon Dioxide (21-32) mmol/L Anion Gap (3-11) BUN (6-23) mg/dl Creatinine (0.6-1.4) mg/dl Est Cr Clr Drug Dosing ml/min Est GFR ( Amer) ml/min Est GFR (Non-Af Amer) ml/min BUN/Creatinine Ratio (10-20) Glucose (70-99(Fasting)) mg/dl Calcium (8.5-10.1) mg/dl Total Bilirubin (0.2-1.0) mg/dl AST (13-39) U/L ALT (7-52) U/L Alkaline Phosphatase (34-104) U/L Troponin I High Sens (0-20) pg/ml Total Protein (6.0-8.3) gm/dl Albumin (3.4-5.0) gm/dl Globulin (2.5-4.0) gm/dl Albumin/Globulin Ratio (0.9-2) Lipase (11-82) U/L Urine Color Urine Appearance (Clear) Urine pH (4.5-7.5) Ur Specific Hamel (1.000-1.030) Urine Protein (Negative) Urine Glucose (UA) (Negative) Urine Ketones (Negative) Urine Blood (Negative) Urine Nitrite (Negative) Urine Bilirubin (Negative) Urine Urobilinogen (Negative) Ur Leukocyte Esterase (Negative) Urine WBC (Auto) (0-5) /hpf Urine RBC (Auto) (0-4) /hpf U Hyaline Cast (Auto) (0-5) /lpf U Epithel Cells (Auto) (0-5) /lpf Urine Bacteria (Auto) (Negative) SARS-CoV-2, RNA, NAAT NEGATIVE (NEGATIVE) Administered Medications Discontinued Medications Sodium Chloride (Nss 1000ml) 1,000 mls @ 999 mls/hr IV .Q1H1M ONE Stop: 05/17/22 20:16 Last Infusion: 05/17/22 20:18 Dose: 0 mls/hr Documented By: Admin: 05/17/22 19:34 Dose: 999 mls/hr Documented By: ZOIE Ioversol (Optiray 350 100ml) 78 ml IV ONCE ONE Stop: 05/17/22 19:45 Last Admin: 05/17/22 19:45 Dose: 78 ml Documented By: CARLIE Lisinopril (Lisinopril 5 Mg Tab) 5 mg PO NOW ONE Stop: 05/17/22 19:17 Last Admin: 05/17/22 19:35 Dose: 5 mg Documented By: ZOIE Metoprolol Tartrate (Metoprolol Tartrate 1 Mg/Ml Vial) 5 mg IV NOW STA Stop: 05/17/22 21:03 Last Admin: 05/17/22 21:17 Dose: 5 mg Documented By: ZOIE Sotalol HCl (Sotalol Hcl 80 Mg Tab) 80 mg PO NOW ONE Stop: 05/17/22 19:17 Last Admin: 05/17/22 19:35 Dose: 80 mg Documented By: ZOIE Imaging Data Radiologist's Impression: Abdomen/Pelvis CT 05/17/22 16:[address] WITH IV CONTRAST CT DOSE: 580.88 mGy.cm HISTORY: Acute lower abdominal pain with nausea and vomiting Lower abd pain, vomiting, tender L and central TECHNIQUE: Multiaxial CT images of the abdomen and pelvis were performed following the IV administration of Optiray, A dose lowering technique was utilized adhering to the principles of ALARA. COMPARISON STUDY: CT abdomen and pelvis 02/24/2020, March 11, 2016. FINDINGS: Cardiomegaly with prior median sternotomy and CABG. Prosthetic mitral valve. Clear lung bases. No pneumatosis or pneumoperitoneum. Unremarkable spleen,, gallbladder and adrenal glands. Stable indeterminate ill-defined hypodense 2.8 cm lesion of the posterior right hepatic lobe on image 24 series 2. Based on stability dating back to 2015, this may represent a hemangioma. Patency of the hepatic and portal veins. Stable 7 mm hyperdense focus of the pancreatic tail. Unremarkable kidneys. 5 mm linear cortical calcification of the lateral i nterpolar left kidney. No ureteral calculi or hydronephrosis. Prostamegaly. Mild urinary bladder wall thickening. Small fat filled inguinal hernias. No abdominal aortic aneurysm or lymphadenopathy. No bowel obstruction or bowel wall thickening. No ascites or mesenteric inflammation. No bowel obstruction or bowel wall thickening. Normal appendix. Unremarkable soft tissues. No acute fracture. IMPRESSION: 1. No acute intra-abdominal or intrapelvic abnormality. 2. Colonic diverticulosis. 3. Normal appendix. ACT 112: Negative or not required by law. The above report was generated using voice recognition software. It may contain grammatical, syntax or spelling errors. Electronically signed by: Arash Cardenas M.D. 05/17/2022 7:59 PM Discharge Plan Visit Data Chief Complaint: Abdominal Pain Stated Complaint: CAT SCAN ED Provider: Sameer Moore Discharge Problem: Right lower quadrant abdominal pain Forms Stand Alone Forms: [employer] Prescriptions Prescriptions: No Action lisinopril 5 mg tablet 5 mg PO QPM Qty: 90 3RF sotalol 80 mg tablet 80 mg PO Q12H Qty: 180 3RF triamcinolone acetonide [Kenalog] 40 mg/mL suspension 40 mg IM .every 8 weeks PRN (Reason: psoriasis) Qty: 30 1RF naproxen 500 mg tablet 500 mg PO BID PRN (Reason: pain) Qty: 180 1RF albuterol sulfate 2.5 mg /3 mL (0.083 %) solution for nebulization 2.5 mg INHALATION Q4 PRN (Reason: Shortness Of Breath) Qty: 180 1RF aspirin 81 mg tablet,delayed release (DR/EC) 81 mg PO QAM Qty: 90 1RF cetirizine [Zyrtec] 10 mg tablet 10 mg PO HS Qty: 90 1RF Atrovent HFA 17 mcg/actuation HFA aerosol inhaler 2 puff INHALATION QID PRN (Reason: Shortness Of Breath) Qty: 12.9 1RF Men's 50 Plus Multivitamin 400-20-370 mcg tablet 1 tab PO DAILY epinephrine [EpiPen 2-Kareem] 0.3 mg/0.3 mL auto-injector 0.3 mg IM Q3H PRN (Reason: Allergic Reaction) Qty: 2 1RF triamcinolone acetonide [Nasacort Allergy] 55 mcg aerosol,spray 2 spray intranasal DAILY Qty: 50.7 1RF Rx Instructions: administer into each nostril azelastine 137 mcg (0.1 %) aerosol,spray 2 spray intranasal BID Qty: 90 1RF Rx Instructions: administer into each nostril cholecalciferol (vitamin D3) 125 mcg (5,000 unit) capsule 125 mcg PO DAILY pantoprazole 40 mg tablet,delayed release (DR/EC) 40 mg PO DAILY sucralfate 100 mg/mL suspension 10 ml PO QID Qty: 420 1RF Rx Instructions: swish in mouth and swallow; use after food/drink Referrals Referrals: Clarissa Steiner DO [Primary Care Provider] -
[2022-05-17] MEDS ORDERED: OPTIRAY 350 100ml IV ONE (19:44)
--- NOTE | 2022-05-17 20:01 | CT Scan Report ---
ABDOMEN AND PELVIS CT WITH IV CONTRAST CT DOSE: 580.88 mGy.cm HISTORY: Acute lower abdominal pain with nausea and vomiting Lower abd pain, vomiting, tender L and central TECHNIQUE: Multiaxial CT images of the abdomen and pelvis were performed following the IV administrat ion of Optiray, A dose lowering technique was utilized adhering to the principles of ALARA. COMPARISON STUDY: CT abdomen and pelvis 02/24/2020, March 11, 2016. FINDINGS: Cardiomegaly with prior median sternotomy and CABG. Prosthetic mitral valve. Clear lung bas es. No pneumatosis or pneumoperitoneum. Unremarkable spleen,, gallbladder and adrenal glands. Stable indeterminate ill-defined hypodense 2.8 cm lesion of the posterior right hepatic lobe on image 24 ser ies 2. Based on stability dating back to 2015, this may represent a hemangioma. Patency of the hepati c and portal veins. Stable 7 mm hyperdense focus of the pancreatic tail. Unremarkable kidneys. 5 mm linear cortical calcification of the lateral interpolar left kidney. No ur eteral calculi or hydronephrosis. Prostamegaly. Mild urinary bladder wall thickening. Small fat fille d inguinal hernias. No abdominal aortic aneurysm or lymphadenopathy. No bowel obstruction or bowel wa ll thickening. No ascites or mesenteric inflammation. No bowel obstruction or bowel wall thickening. Normal appendix. Unremarkable soft tissues. No acute fracture. IMPRESSION: 1. No acute intra-abdominal or intrapelvic abnormality. 2. Colonic diverticulosis. 3. Normal appendix. ACT 112: Negative or not required by law. The above report was generated using voice recognition software. It may contain grammatical, syntax o r spelling errors. Electronically signed by: Arash Cardenas M.D. 05/17/2022 7:59 PM
[2022-05-17] MEDS ORDERED: METOPROLOL TARTRATE 1 MG/ML VIAL IV STA (21:02)
--- NOTE | 2022-05-17 22:13 | History & Physical Report ---
Date of Service May 17, 2022 Assessment & Plan (1) Atrial flutter with rapid ventricular response: Plan: Lencho is a 56 year old male w/ PmHx paroxysmal atrial fibrillation s/p ablation x2, mitral valve prolapse w/ MR s/p MVR, paroxysmal atrial flutter (2018), prior PUD, GERD, hiatal hernia, gall bladder polyps, non specific colitis, diverticulitis admitted for abdominal pain and new onset atrial flutter. Abdominal Pain: -New onset abdominal pain after eating restaurant fatty food. -CT unremarkable for acute intra-abdominal or pelvic process. -CMP unremarkable for acute process. CBC with WBC 11.09. -CT does not rule out cholelithiasis. -Will obtain HIDA scan in the morning to r/o gallbladder process as patient stated previous instances of this had resulted in HIDA at least a week after symptom onset and after resolution. -Possible alternative diagnosis of food poisoning or prostatitis although no complaint of urinary symptoms. -If HIDA scan clear can put back on diet and advance as tolerated. -Continue home Protonix 40mg BID, sucralfate. -Continue to monitor. Atrial flutter w/ rapid ventricular response: -New onset atrial flutter in the face of possible trigger from food poisoning vs gallstone. -Patient given 80mg Sotalol, 5mg Lopressor, HR came down appropriately to 100's. -May need increase to Sotalol if not contained. -Continue home lisinopril 5mg daily. -Will placed patient on heparin SQ 5k units Q12 for DVT prophylaxis, CHADSVASC score 1, low risk for clot. -Will monitor patient on PCU due to potential need for further IV Lopressor. Elevated troponin: -Troponin 33 on admission. -No chest pain or shortness of breath. -Likely demand ischemia due to high heart rate. -Will trend with AM trop. GERD: -As above, continue home pantoprazole. Dyslipidemia: -Managed outpatient with diet/exercise. stable. F/E/N/GI: NPO, will obtain HIDA scan, if negative and gallbladder pathology ruled out can restart diet. DVT Prophylaxis: Heparin SQ 5k unit q12h. Code status: Full code. Dispo: PCU in case needs lopressor. (2) Abdominal pain: (3) Paroxysmal atrial fibrillation: (4) GERD (gastroesophageal reflux disease): (5) Dyslipidemia: History of Present Illness Chief Complaint: Abdominal pain Primary Care Provider: Clarissa Steiner DO Lencho is a 56 year old male with past medical history of paroxysmal atrial fibrillation s/p ablation x2, mitral valve prolapse w/ MR s/p MVR, paroxysmal atrial flutter (2018), prior PUD, GERD, hiatal hernia, gall bladder polyps, non specific colitis, diverticulitis who presented to the ED from cardiology office with new onset atrial flutter since Friday. 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 At the restaurant he got a chicken parmesan meal and afterwards that night developed nausea, vomiting x3 in a row, as well as diarrhea. He states that the diarrhea and vomit were yellowish in color (bile color as he describes it) however no blood. Patient states that he started to get the fast heart rate, notified his cardiology office and was seen in the office earlier today. He states he is currently not having any nausea or vomiting, his appetite has been decreased as he hasn't eaten anything since 11PM last night and he is still not hungry. He states he has been able to drink water and power-aide, he does not drink any alcohol since that had triggered an episode of atrial fibrillation in the past. He's been able to get some foods down however has been light. He states the pain is most prominent at the lower pelvic region, although has some right sided abdominal pain as well. He says the pain is a discomfort in nature. He denies any past history of hypertension or diabetes. He takes sotalol 80mg BID and lisinopril 5mg at night for his cardiac issues. In the ED he was given one dose of his home sotalol 80mg, lisinopril 5mg, and m etoprolol tartrate 5mg IV. In the ED his heart rate was in the 120's, after the home medications and lopressor his heart rate came down to 100's according to his , and after he got his covid test came back up to the 120's. CT A&P w/o acute intra-abdominal or intrapelvic abnormality; colonic diverticulosis, normal appendix. WBC 11.09, Hgb 15.5, electrolytes and kidney function WNL, Liver enzymes and lipase WNL. Allergies Allergy/AdvReac Type Severity Reaction Status Date / Time bee venom protein (honey bee) Allergy Severe DIFFICULTY Verified 05/17/22 14:09 BREATHING No Known Drug Allergies Allergy Verified 05/17/22 14:09 Home Medications Medication Instructions Recorded Confirmed Type albuterol sulfate 2.5 mg/3 mL 2.5 mg (3 mL) inhalation Q4 PRN 09/29/18 05/17/22 Rx (0.083 %) solution for nebulization Shortness Of Breath #180 mL aspirin 81 mg tablet,delayed 81 mg PO QAM #90 tabs 09/29/18 05/17/22 Rx release cetirizine 10 mg tablet (Zyrtec) 10 mg PO HS #90 tabs 09/29/18 05/17/22 Rx ipratropium bromide 17 2 puff inhalation QID PRN 09/29/18 05/17/22 Rx mcg/actuation HFA aerosol inhaler Shortness Of Breath #12.9 grams (Atrovent HFA) epinephrine 0.3 mg/0.3 mL 0.3 mg (0.3 mL) IM Q3H PRN 06/01/20 05/17/22 Rx injection, auto-injector (EpiPen Allergic Reaction #2 ea 2-Kareem) [id number] acid-vit 1 tab PO DAILY 06/01/20 05/17/22 History K-lycop 400 mcg-20 mcg-370 mcg tablet (Men's 50 Plus Multivitamin) cholecalciferol (vitamin D3) 125 125 mcg PO DAILY 11/09/20 05/17/22 History mcg (5,000 unit) capsule lisinopril 5 mg tablet 5 mg PO QPM #90 tabs 07/20/21 05/17/22 Rx sotalol 80 mg tablet 80 mg PO Q12H #180 tabs 07/27/21 05/17/22 Rx azelastine 137 mcg (0.1 %) nasal 2 spray intranasal BID #90 mL 12/04/21 05/17/22 Rx spray aerosol triamcinolone acetonide 55 mcg 2 spray intranasal DAILY #50.7 mL 12/04/21 05/17/22 Rx nasal spray aerosol (Nasacort Allergy) triamcinolone acetonide 40 mg/mL 40 mg IM .every 8 weeks PRN 12/06/21 05/17/22 Rx suspension for injection (Kenalog) psoriasis #30 mL naproxen 500 mg tablet 500 mg PO BID PRN pain #180 tabs 04/23/22 05/17/22 Rx pantoprazole 40 mg tablet,delayed 40 mg PO DAILY 05/17/22 05/17/22 History release sucralfate 100 mg/mL oral 10 ml PO QID #420 mL 05/17/22 05/17/22 Rx suspension Past Med/Surg History Medical History Allergic rhinitis Chronic sinusitis COVID-19 virus detected COVID + 04/10/20 (symptoms at time of fever and headache which has since reso lved), again tested COVID + 05/15/20 (asymptomatic) Dyslipidemia GERD (gastroesophageal reflux disease) Hiatal hernia with gastroesophageal reflux History of cardiomyopathy History of peptic ulcer Mitral valve disorder Paroxysmal atrial fibrillation Psoriasis Reactive airway disease Sinus bradycardia Tinnitus Surgical History History of cardioversion multiple History of colonoscopy History of esophagogastroduodenoscopy (EGD) History of mitral valve repair (2007) 2007 @ [place], [place]--follows with Dr. Montero History of tooth extraction all upper teeth, wisdom teeth Status post catheter ablation of atrial fibrillation x2 Family History Mother Bleeding disorder Allergic rhinitis Hypertension Brother Hypertension Father , struck by lightning No problems noted. 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 caffeine: Yes (Coffee x 3 per day. ) during the past year weight has: remained stable Dental Care, Regularly: Yes Physical Activity Frequency: 3-4 Times per Week Seatbelt Use: always Sunscreen Use: No Review of Systems Review of Systems: As per HPI. Physical Exam Constitutional: WD/WN, vitals as above Eyes: PERRL, conjunctivae normal, anicteric sclerae ENMT: external ear and nose normal, oropharynx normal Respiratory: normal respiratory effort, lungs clear to auscultation Cardiovascular: Rate/Rhythm: regular rhythm and + tachycardic Heart Sounds: normal S1 and normal S2 No peripheral edema. Gastrointestinal (Abdomen): BS+, soft, non-distended, tender to palpation mildly at the LLQ/pelvic area as well as RUQ lateral aspect. Negative Pritchett's sign. Psychiatric: A+Ox3, euthymic affect Results & Data Results & Data ([facility]) Vital Signs (Past 12 Hours) Vital Signs Temp Pulse Pulse Resp BP BP Pulse Ox 05/17/22 21:46 106 H 15 122/93 98 05/17/22 21:17 118 H 13 122/93 98 05/17/22 20:27 120 H 14 118/89 98 05/17/22 19:15 122 H 14 133/98 98 05/17/22 18:24 123 H 25 H 143/96 H 99 05/17/22 16:12 36.7 C 124 H 18 137/94 97 O2 Del Method 05/17/22 21:46 Room Air 05/17/22 21:17 Room Air 05/17/22 20:27 Room Air 05/17/22 19:15 Room Air 05/17/22 18:24 Room Air 05/17/22 16:12 Room Air Supervising Physician Co-Signing Physician Notes Attending addendum: I have physically seen this patient, have supervised the medical residents activities, and agree with the H&P unless as otherwise noted. Assessment and Plan: Atrial flutter with RVR/cardiomyopathy/paroxysmal atrial fibrillation/history of mitral valve repair- The patient will be admitted to telemetry for serial cardiac enzymes, serial EKG's, cardiac rhythm monitoring and a 2-D echocardiogram with Dopplers. Troponin mildly elevated at 33.8, likely secondary to increased heart rate Presently on sotalol 80 mg p.o. twice daily, will continue current dosing, and consult cardiology Continue aspirin 81 mg daily Hold lisinopril to allow more blood pressure to potentially push sotalol dosing Abdominal pain/GERD- CT abdomen pelvis negative Symptoms could be suggestive of gallbladder process Order HIDA scan with gallbladder EF Continue pantoprazole and sucralfate COPD- Continue usual inhalers Remaining orders and notations as noted Resident Activity Tracking Resident Involvement: Resident Care Provided Care Provided: Adult Hospital Medicine
[2022-05-18] MEDS ORDERED: ACETAMINOPHEN 325 MG TAB PO PRN (00:39)
[2022-05-18] MEDS ORDERED: SODIUM CHLORIDE 0.9% 1000ML 500 ML IV ONE (01:17)
[2022-05-18] MEDS: SODIUM CHLORIDE 0.9% 1000ML 1,000 ML IV SCH ×2 (01:35→12:51)
[2022-05-18 04:59] LABS: Basophils # (auto) 0.04 K/uL (0-0.2); Basophils % (auto) 0.5 %; Eosinophils # (auto) 0.09 K/uL (0-0.50); Hematocrit (blood only) 39.6 % (42.0-52.0); Hemoglobin 13.5 g/dl (14.0-18.0); Immature Granulocytes # (auto) 0.04 K/uL (0.01-0.20); Immature Granulocytes % (auto) 0.5 %; Lymphocytes # (auto) 2.03 K/uL (1.2-3.4); Lymphocytes % (auto) 22.9 %; Mean Corpuscular Hemoglobin 30.5 pg (25.0-34.0); Mean Corpuscular Hgb Conc 34.1 g/dL (32.0-36.0); Mean Corpuscular Volume 89.4 fL (80.0-100.0); Mean Platelet Volume 9.6 fL (9.4-12.4); Monocytes # (auto) 1.12 K/uL (0.11-0.59); Monocytes % (auto) 12.7 %; Neutrophils # (auto) 5.53 K/uL (1.40-6.50); Neutrophils % (auto) 62.4 %; Platelet Count 189 K/uL (130-400); RDW Coefficient of Variation 12.7 % (11.5-14.5); RDW Standard Deviation 41.8 fL (36.4-46.3); Red Blood Count 4.43 M/uL (4.70-6.10); White Blood Count 8.85 K/ul (4.8-10.8)
[2022-05-18 05:13] LABS: BUN Creatinine Ratio 17.1 (10-20); Calcium 7.9 mg/dl (8.5-10.1); Est GFR (African American) 123.1 ml/min; Est GFR (Non-African American) 106.2 ml/min; Magnesium 1.9 mg/dl (1.7-2.4); Potassium 3.9 mmol/L (3.5-5.1)
[2022-05-18 05:19] LABS: Troponin I High Sensitivity 35.3 pg/ml (0-20)
--- NOTE | 2022-05-18 07:10 | Hospitalist Progress Note ---
Date of Service May 18, 2022 Assessment & Plan (1) Atrial flutter with rapid ventricular response: Plan: Lencho is a 56 year old male w/ PmHx paroxysmal atrial fibrillation s/p ablation x2, mitral valve prolapse w/ MR s/p MVR, paroxysmal atrial flutter (2018), prior PUD, GERD, hiatal hernia, gall bladder polyps, non specific colitis, diverticulitis admitted for abdominal pain and new onset atrial flutter. Abdominal Pain (Acute on Chronic) - Provoked by eating, emesis and anorexia ongoing since Friday -CT unremarkable for acute intra-abdominal or pelvic process. -CMP unremarkable for acute process. CBC with WBC 11.09. - Consider HIDA scan (patient has had prior negative scans) --- RUQ Ultrasound obtained which evidenced gallbladder sludge and polyp without evidence of acute cholycystitis --- Symptoms concerning for gastritis vs PUD --- Home Pantoprazole adjusted to 40 mg BID and added Pepcid BID --- Ordered GI Cocktail: Maalox, Viscous Lidocaine, and Carafate --- Consider EGD Atrial flutter w/ rapid ventricular response: - New onset A Flutter, known hx of A Fib, possibly triggered by acute abdominal process -Patient given 80mg Sotalol, 5mg Lopressor, HR came down appropriately to 100's. -Continue home lisinopril 5mg daily. - CHADSVASC score 1, low risk for clot. - Will monitor patient on PCU due to potential need for further IV Lopressor. --- Transitioned to Eliquis BID --- Added Sotalol 120 mg BID and Metoprolol 50 PO q8h per Cardiology recommendations --- Cardiology considering cardioversion, NPO at midnight Elevated troponin: -Troponin 33 on admission. -No chest pain or shortness of breath. -Likely demand ischemia due to high heart rate. -Will trend with AM trop. --- Troponin 33.8 to 35.3, now downtrending to 30 GERD: - Management adjusted as above. Dyslipidemia: -Managed outpatient with diet/exercise. stable. F/E/N/GI: NPO @ midnight for cardioversion DVT Prophylaxis: Eliquis Code status: Full code. Dispo: PCU (2) Abdominal pain: (3) Paroxysmal atrial fibrillation: (4) GERD (gastroesophageal reflux disease): (5) Dyslipidemia: Admission and Anticipated Discharge Date Admission Date: May 17, 2022 Supervising Physician Co-Signing Physician Notes I personally examined the patient and verified all galindo points of history and exam, discussed case, and agree with decision making with Dr Pritchett overall feeling better. wonders if food poisoning vitals noted nad heent nc at mmm abd soft nd nt no guarding no rebound nausea/vomiting - ?infectious and resolving. really no compelling evidence of gallbladder disease. advance diet, supportive care flutter - per cardiology Subjective Lencho is a 56 year old male w/ PmHx paroxysmal atrial fibrillation s/p ablation x2, mitral valve prolapse w/ MR s/p MVR, paroxysmal atrial flutter (2018), prior PUD, GERD, hiatal hernia, gall bladder polyps, non specific colitis, diverticulitis admitted for new atrial flutter in the setting of acute abdominal pain. 05/18/22: Patient continues to experience abdominal pain this morning. He notes that on Friday he started having yellow-green, non-bloody emesis as well as yellow-formed non-bloody stools. These episodes of emesis and yellow stools continued throughout the week. He notes increasing amounts of epigastric to RUQ pain that is most often provoked by meals. He has noted some orthostatic changes, namely lightheadedness upon standing. Patient states that he has not eaten since d/t the pain and lack of appetite. Furthermore, patient has a hx of paroxysmal A Fib, he states that he has a tell tale cough whenever he is transitioning into an abnormal rhythm, he experienced this Friday and was seen by his Put In Beat Adjuster who recommended that he be evaluated in the ER given his presentation. Patient has received cardioversions in the past for his abnormal rhythms. He notes that at this time, his heart rhythm is not symptomatic. Review of Systems Review of Systems: As per HPI. Physical Exam 2 Physical Exam: Gen: NAD, alert, interactive HEENT: Supple, no LAD, no thyromegaly, no JVD Resp:Non-labored, no wheezing/rhonchi/rales, CTAB CV:Tachycardic, regular, normal S1/S2, no M/R/G Abd: Soft, non-distended, no epigastric or RUQ TTP, TTP in LLQ, normoactive bowels, no masses, Pritchett sign negative Extr: 2+ dp bilaterally, no edema Skin: No rashes lesions or erythema Results & Data Results & Data ([facility]) Vital Signs (Past 12 Hours) Vital Signs Temp Pulse Pulse Resp BP Pulse Ox O2 Del Method 05/18/22 04:22 Room Air 05/18/22 04:21 36.5 C 109 H 19 120/77 98 Room Air 05/18/22 03:19 100 H 15 90/69 L 96 Room Air 05/18/22 02:44 114 H 14 96/68 L 95 Room Air 05/18/22 02:01 108 H 15 95/66 L 97 Room Air 05/18/22 01:01 121 H 14 93/69 L 97 Room Air 05/18/22 00:11 121 H 05/17/22 22:04 105 H 14 113/90 98 Room Air 05/17/22 21:46 106 H 15 122/93 98 Room Air 05/17/22 21:17 118 H 13 122/93 98 Room Air 05/17/22 20:27 120 H 14 118/89 98 Room Air 05/17/22 19:15 122 H 14 133/98 98 Room Air Resident Activity Tracking Resident Involvement: Resident Care Provided Care Provided: Adult Hospital Medicine
--- NOTE | 2022-05-18 07:53 | Electrocardiogram Report ---
Test Reason : Blood Pressure : / mmHG Vent. Rate : 124 BPM Atrial Rate : 122 BPM P-R Int : 000 ms QRS Dur : 092 ms QT Int : 328 ms P-R-T Axes : 000 021 -23 degrees QTc Int : 471 ms Poor data quality, interpretation may be adversely affected Probable Atrial flutter with rapid ventricular response Abnormal ECG When compared with ECG of 17-MAY-2022 13:53, No significant change Confirmed by Vadim Hanna ([id number]) on 05/18/2022 7:53:27 AM Referred By: Krish Montero Confirmed By:Vadim Hanna
[2022-05-18] MEDS ORDERED: SOTALOL HCL 80 MG TAB PO SCH ×2 (09:00→23:00)
[2022-05-18] MEDS ORDERED: PANTOprazole 40 MG TAB PO SCH (09:00)
[2022-05-18] MEDS: HEPARIN SOD 5,000 UNIT/0.5 ML VIAL SQ SCH ×2 (09:03→09:11)
[2022-05-18] MEDS: SUCRALFATE 1 GM/10 ML UDC PO SCH ×4 (09:03→20:04)
[2022-05-18] MEDS: ASPIRIN 81 MG ECTAB PO SCH (09:03)
[2022-05-18] MEDS: CHOLECALCIFEROL 5,000 UNITS 125 MCG TAB PO SCH (09:03)
--- NOTE | 2022-05-18 10:34 | Cardiology Consultation ---
Date of Consultation May 18, 2022 Assessment & Plan (1) Atrial flutter with rapid ventricular response: Patient with prior history of paroxysmal atrial fibrillation/flutter status post 2 ablations on sotalol 80 mg twice daily who now has recurrent atrial flutter in the context of several days of the adrenergic milieu of abdominal symptoms (now resolved). Would increase sotalol from 80 mg twice daily to 120 mg twice daily to decrease risk of recurrence after conversion, temporarily add metoprolol tartrate 50 mg p.o. every 8 hours (hold for systolic blood pressure less than 90 or heart rate less than 100 bpm) for rate control/decrease adrenergic milieu in hopes of returning to sinus rhythm. He has not been on chronic beta-blockers due to mild bradycardia, but as a temporary measure the risk of excess bradycardia is low (p articularly in a monitored environment in hospital). He likely will not be discharged on a beta-anna marie, but on sotalol alone. His [id number] would appear to be 0 (he is on lisinopril for cardiomyopathy not hypertension) and atrial flutter is lower risk of thrombus than atrial fibrillation, but he is now more than 72 hours out from onset of palpitations. As such, would favor initiation of apixaban 5 mg twice daily with initial dose this morning and a dose this evening to achieve some level of anticoagulation prior to cardioversion, would continue this for several weeks afterwards since mechanical systole can be delayed after conversion to atrial systole. Will attempt to obtain anesthesiology attendance for moderate sedation tomorrow, if unable and patient is stable may discharge and keep on anticoagulation, with outpatient cardioversion later in the week. (2) History of mitral valve repair: (3) Abdominal pain: History of Present Illness Reason for Consultation: Atrial flutter Requesting Physician: Abel Cates DO Attending Physician: Abel Cates DO History of Present Illness 56-year-old man with history of mitral valve repair, paroxysmal atrial fibrillation/flutter (ablation x2), mild tachycardia induced cardiomyopathy (recent systolic function normal), and various chronic gastrointestinal issues (PUD, GERD, hiatal hernia, gallbladder polyps, nonspecific colitis) who developed gastrointestinal symptoms 4 days ago (diffuse abdominal pain, anorexia, nausea, and vomiting), was seen by Abilio Stearns PA-C yesterday and found to have atrial flutter with ventricular rate 125 bpm, admitted and is now seen for further cardiology evaluation. CT of the abdomen was benign and his gastrointestinal symptoms have completely resolved overnight. He notes the onset of his palpitations after the onset of abdominal discomfort and after an initial sense of significant tachycardia no longer even notes subjective palpitations, but has noted that his heart rate has been elevated in the 125 bpm range for the past several days. Currently, he has no symptoms but is anxious to undergo electrical cardioversion. He has been declining the subcutaneous enoxaparin injections due to the discomfort they call us. He is not chronically anticoagulated due to his low [id number] score (0, he is not noted to have hypertension but is on low- dose lisinopril for mild CCM). At the time of my evaluation, he had no somatic complaints. Allergies Allergy/AdvReac Type Severity Reaction Status Date / Time bee venom protein (honey bee) Allergy Severe DIFFICULTY Verified 05/17/22 14:09 BREATHING No Known Drug Allergies Allergy Verified 05/17/22 14:09 Home Medications Medication Instructions Recorded Confirmed Type albuterol sulfate 2.5 mg/3 mL 2.5 mg (3 mL) inhalation Q4 PRN 09/29/18 05/17/22 Rx (0.083 %) solution for nebulization Shortness Of Breath #180 mL aspirin 81 mg tablet,delayed 81 mg PO QAM #90 tabs 09/29/18 05/17/22 Rx release cetirizine 10 mg tablet (Zyrtec) 10 mg PO HS #90 tabs 09/29/18 05/17/22 Rx ipratropium bromide 17 2 puff inhalation QID PRN 09/29/18 05/17/22 Rx mcg/actuation HFA aerosol inhaler Shortness Of Breath #12.9 grams (Atrovent HFA) epinephrine 0.3 mg/0.3 mL 0.3 mg (0.3 mL) IM Q3H PRN 06/01/20 05/17/22 Rx injection, auto-injector (EpiPen Allergic Reaction #2 ea 2-Kareem) [id number]-fbmot acid-vit 1 tab PO DAILY 06/01/20 05/17/22 History K-lycop 400 mcg-20 mcg-370 mcg tablet (Men's 50 Plus Multivitamin) cholecalciferol (vitamin D3) 125 125 mcg PO DAILY 11/09/20 05/17/22 History mcg (5,000 unit) capsule lisinopril 5 mg tablet 5 mg PO QPM #90 tabs 07/20/21 05/17/22 Rx sotalol 80 mg tablet 80 mg PO Q12H #180 tabs 07/27/21 05/17/22 Rx azelastine 137 mcg (0.1 %) nasal 2 spray intranasal BID #90 mL 12/04/21 05/17/22 Rx spray aerosol triamcinolone acetonide 55 mcg 2 spray intranasal DAILY #50.7 mL 12/04/21 05/17/22 Rx nasal spray aerosol (Nasacort Allergy) triamcinolone acetonide 40 mg/mL 40 mg IM .every 8 weeks PRN 12/06/21 05/17/22 Rx suspension for injection (Kenalog) psoriasis #30 mL naproxen 500 mg tablet 500 mg PO BID PRN pain #180 tabs 04/23/22 05/17/22 Rx pantoprazole 40 mg tablet,delayed 40 mg PO DAILY 05/17/22 05/17/22 History release sucralfate 100 mg/mL oral 10 ml PO QID #420 mL 05/17/22 05/17/22 Rx suspension Patient History Medical History Allergic rhinitis Chronic sinusitis COVID-19 virus detected COVID + 04/10/20 (symptoms at time of fever and headache which has since resolved), again tested COVID + 05/15/20 (asymptomatic) Dyslipidemia GERD (gastroesophageal reflux disease) Hiatal hernia with gastroesophageal reflux History of cardiomyopathy History of peptic ulcer Mitral valve disorder Paroxysmal atrial fibrillation Psoriasis Reactive airway disease Sinus bradycardia Tinnitus Surgical History History of cardioversion multiple History of colonoscopy History of esophagogastroduodenoscopy (EGD) History of mitral valve repair (2007) 2007 @ [place], [place]--follows with Dr. Montero History of tooth extraction all upper teeth, wisdom teeth Status post catheter ablation of atrial fibrillation x2 Family History Mother Bleeding disorder Allergic rhinitis Hypertension Brother Hypertension Father , struck by lightning No problems noted. 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 caffeine: Yes (Coffee x 3 per day. ) during the past year weight has: remained stable Dental Care, Regularly: Yes Physical Activity Frequency: 3-4 Times per Week Seatbelt Use: always Sunscreen Use: No Physical Exam Physical Exam: No distress. BP normotensive Pulse 125 bpm and fairly regular. Skin: no ecchymoses or generalized lesions. HEENT: unremarkable. Neck: no JVD or carotid bruits. Lungs: clear. Cardiac: Tachycardic/fairly regular rhythm, normal S1/S2, no murmur or gallop. Abdomen: benign. Extremities: no edema, pulses intact. Neurologic: normal affect, nonfocal. Results & Data ([facility]) Vital Signs (Past 12 Hours) Vital Signs Temp Pulse Pulse Resp BP Pulse Ox O2 Del Method 05/18/22 10:02 126 H 14 115/85 99 Room Air 05/18/22 04:22 Room Air 05/18/22 04:21 97.7 F 109 H 19 120/77 98 Room Air 05/18/22 03:19 100 H 15 90/69 L 96 Room Air 05/18/22 02:44 114 H 14 96/68 L 95 Room Air 05/18/22 02:01 108 H 15 95/66 L 97 Room Air 05/18/22 01:01 121 H 14 93/69 L 97 Room Air 05/18/22 00:11 121 H Laboratory Results Normal electrolytes with potassium 3.9, BUN 12, creatinine 0.7. Diagnostic Findings ECG on admission shows probable atrial flutter with rapid ventricular sponsor 1 24 bpm, otherwise unremarkable. CT of the abdomen/pelvis showed no acute process. Echocardiogram April 2020 showed EF 55 to 60% with no wall motion abnormalities and no LVH. Trace mitral regurgitation with intact mitral valvular annuloplasty. No change compared with 2018 study. PG Care Time/CCT Total # of Minutes Spent Total Time Spent with Patient: Total time spent is greater than 50% in coordination of care (as documented) at patient's floor/unit and/or counseling patient: Coding Level of Care Code 84202 IN/OBS CONSULT LVL 4,60M Diagnoses Atrial flutter with rapid ventricular response I48.92 History of mitral valve repair Z98.890 Abdominal pain R10.9
[2022-05-18] MEDS ORDERED: SOTALOL HCL 80 MG TAB PO ONE (12:30)
[2022-05-18] MEDS: METOPROLOL TARTRATE 50 MG TAB PO SCH ×2 (12:51→20:03)
--- NOTE | 2022-05-18 13:48 | Ultrasound Report ---
US gallbladder CLINICAL HISTORY: RUQ/epigastric pain TECHNIQUE: Multiple real-time sonographic images of the right upper quadrant were obtained. Comparison: Comparison is made to right upper quadrant ultrasound 09/10/[address] abdomen pelvis 05/17 FINDINGS: The liver is diffusely homogenous with normal contour and echogenicity. A hyperechoic area in the rig ht lobe measuring 2.9 x 1.8 x 1.7 cm is compatible with hemangioma seen on prior CT. No intrahepatic ductal dilatation is seen. Low level internal echoes are identified layering dependently within the gallbladder, which is consistent with gallbladder sludge.. There is no pericholecystic fluid present . A gallbladder polyp measures 0.4 cm. The gallbladder wall measures 0.3 cm. A sonographic Pritchett's s ign was not elicited by the technical applications scientist. The common duct measures 0.4 cm in diameter at the level o f the hepatic artery. The visualized portions of the pancreas appear normal. The right kidney shows normal echogenicity, cortical thickness and renal contour. The right kidney sh ows no evidence of hydronephrosis or mass. No ascites or free fluid is seen in Swann's pouch. IMPRESSION: 1. Gallbladder sludge without evidence of cholecystitis. 2. Gallbladder polyp noted. By SRU criteria, no further evaluation or follow-up is necessary. 3. Hyperechoic mass in the liver likely represents a hemangioma. ACT 112: Negative or not required by law. Electronically signed by: Blair Houston M.D. 05/18/2022 1:46 PM
[2022-05-18] MEDS ORDERED: ALUMINUM/MAGNESIUM SUSP 30 ML UDC PO PRN (15:05)
[2022-05-18] MEDS ORDERED: LIDOCAINE VISCOUS 2% 15 ML UDC MT PRN (15:05)
[2022-05-18] MEDS ORDERED: ALUMINUM/MAGNESIUM SUSP 30 ML UDC PO STA (15:07)
[2022-05-18] MEDS ORDERED: LIDOCAINE VISCOUS 2% 15 ML UDC PO STA (15:07)
--- NOTE | 2022-05-18 18:09 | Billing Data ---
Date of Service May 18, 2022 Coding Level of Care Code 10654 SUB INP/OBS CARE MIN
[2022-05-18] MEDS: PANTOprazole 40 MG TAB PO SCH (20:03)
[2022-05-18] MEDS: FAMOTIDINE 20 MG TAB PO SCH (20:03)
[2022-05-18] MEDS: APIXABAN 5 MG TABLET PO SCH (20:04)
[2022-05-18] MEDS: lisinopril 5 MG TAB PO SCH (20:04)
--- NOTE | 2022-05-18 22:03 | Billing Data ---
Date of Service May 18, 2022 Coding Level of Care Code 27547 INT INP/OBS CARE
[2022-05-19 05:07] LABS: Hematocrit (blood only) 38.3 % (42.0-52.0); Hemoglobin 13.3 g/dl (14.0-18.0); Mean Corpuscular Hemoglobin 30.3 pg (25.0-34.0); Mean Corpuscular Hgb Conc 34.7 g/dL (32.0-36.0); Mean Corpuscular Volume 87.2 fL (80.0-100.0); Mean Platelet Volume 10.1 fL (9.4-12.4); Platelet Count 201 K/uL (130-400); RDW Coefficient of Variation 12.9 % (11.5-14.5); RDW Standard Deviation 41.1 fL (36.4-46.3); Red Blood Count 4.39 M/uL (4.70-6.10); White Blood Count 6.83 K/ul (4.8-10.8)
[2022-05-19] MEDS: METOPROLOL TARTRATE 50 MG TAB PO SCH (05:15)
[2022-05-19 05:36] LABS: Albumin Globulin Ratio 1.3 (0.9-2); Albumin Level 3.6 gm/dl (3.4-5.0); BUN Creatinine Ratio 13.5 (10-20); Bilirubin,Total 0.5 mg/dl (0.2-1.0); Calcium 8.3 mg/dl (8.5-10.1); Est GFR (African American) 120.4 ml/min; Est GFR (Non-African American) 103.8 ml/min; Globulin 2.7 gm/dl (2.5-4.0); Potassium 3.9 mmol/L (3.5-5.1); Total Protein 6.3 gm/dl (6.0-8.3)
--- NOTE | 2022-05-19 06:40 | Hospitalist Progress Note ---
Date of Service May 19, 2022 Assessment & Plan (1) Atrial flutter with rapid ventricular response: Plan: Lencho is a 56 year old male w/ PmHx paroxysmal atrial fibrillation s/p ablation x2, mitral valve prolapse w/ MR s/p MVR, paroxysmal atrial flutter (2018), prior PUD, GERD, hiatal hernia, gall bladder polyps, non specific colitis, diverticulitis admitted for abdominal pain and new onset atrial flutter. Abdominal Pain (Acute on Chronic) - Provoked by eating, emesis and anorexia ongoing since Friday -CT unremarkable for acute intra-abdominal or pelvic process. -CMP unremarkable for acute process. CBC with WBC 11.09. - Consider HIDA scan (patient has had prior negative scans) - RUQ Ultrasound obtained which evidenced gallbladder sludge and polyp without evidence of acute cholycystitis --- Symptoms concerning for gastritis vs PUD --- Subjective benefit from GI cocktail and adjusted acid suppression --- Consider EGD as outpatient, last documented in 2018 --- HIDA scan ordered, anticipate tomorrow, NPO at midnight Atrial flutter w/ rapid ventricular response: - New onset A Flutter, known hx of A Fib, possibly triggered by acute abdominal process -Patient given 80mg Sotalol, 5mg Lopressor, HR came down appropriately to 100's. -Continue home lisinopril 5mg daily. - CHADSVASC score 1, low risk for clot. - Will monitor patient on PCU due to potential need for further IV Lopressor. - Continue Eliquis BID --- Patient s/p Cardioversion, notable improvement in rate, patient in junctional rhythm on evaluation this AM --- Cardiology recommending discharge with 80 mg Sotalol BID and recommending continuation of anticoagulation given patient's lack of P waves Elevated troponin: -Troponin 33 on admission. -No chest pain or shortness of breath. -Likely demand ischemia due to high heart rate. -Will trend with AM trop. --- Troponin 33.8 to 35.3, now downtrending to 30 GERD: - Management adjusted as above. Dyslipidemia: -Managed outpatient with diet/exercise. stable. F/E/N/GI: NPO @ midnight for cardioversion DVT Prophylaxis: Eliquis Code status: Full code. Dispo: PCU (2) Abdominal pain: (3) Paroxysmal atrial fibrillation: (4) GERD (gastroesophageal reflux disease): (5) Dyslipidemia: Admission and Anticipated Discharge Date Admission Date: May 17, 2022 Supervising Physician Co-Signing Physician Notes I personally examined the patient and verified all galindo points of history and exam, discussed case, and agree with decision making with Dr Pritchett. Feeling a bit better. Ate almost all of his dinner, but did have some burping and belching a little bit heartburn afterwards. Also continues to have some lower abdominal painsomewhat cramping. Bowel movements twice a day reasonably large and solid, feels a degree of a cramping or discomfort beforehand. Vitals noted, in general he is awake and alert pleasant no distress. HEENT normocephalic atraumatic mucous membranes moist. Breathing unlabored no accessory muscle use good effort. Abdomen is soft mildly distended he has bilateral mid lower quadrant tenderness no tenderness at the pelvic brim, no guarding rebound or rigidity, surprisingly minimal epigastric tenderness at this point. Abdominal painI can do suspect to processes at play. His nausea vomiting upper abdominal pain postprandial discomfortall seems to fit the most with GI mucosal diseasein the spectrum of peptic ulcer disease. Twice daily PPI, twice daily H2, 4 times daily [place] long as he improves, home with anticipation of EGD as an outpatient. If he does not improve (and HIDA scan is negative as anticipated) then EGD as an inpatient. His lower abdominal pain I wonder if it is possibly a degree functional. He is not constipated, he definitely shows no signs of infection/diverticulitis/abscess/hernia/obstruction, and yet he has fairly consistent symptoms and a fairly reproducible exam. Trial of MiraLAX at low-dose as a stool softener with the working theory that there may be less back pressure on the wall of his colon during stretch/recoil of peristalsis. A flutterper cardiology Hopefully home tomorrow, anticipating HIDA negative, otherwise as above Subjective Lencho is a 56 year old male w/ PmHx paroxysmal atrial fibrillation s/p ablation x2, mitral valve prolapse w/ MR s/p MVR, paroxysmal atrial flutter (2018), prior PUD, GERD, hiatal hernia, gall bladder polyps, non specific colitis, diverticulitis admitted for new atrial flutter in the setting of acute abdominal pain. 05/19/22: Patient seen s/p Cardioversion, slightly groggy, but responds well to questions. at bedside. Patient notes that epigastric/RUQ pain is improved and that he was able to eat dinner yesterday. He does note ongoing pain in his lower abdomen (inferior to his umbilicus). Patient and express desire to stay for HIDA scan as they believe patient's gallbladder is the cause of his symptoms. Discussed that improvement with GI cocktail suggests gastritis vs PUD origin. Patient's last EGD was in 2018, he notes a recent colonoscopy as well. Patient denies any chest pain, dyspnea, headaches, fevers, chills, or sweats. Patient notes that his most recent stools have been formed. expressed concern about finding a diagnosis for patient's GI symptoms, provided reassurance and discussed plan. Review of Systems Review of Systems: As per HPI. Physical Exam Physical Exam: Gen: NAD, groggy, interactive Resp:Non-labored, no wheezing/rhonchi/rales, CTAB CV:Bradycardic, regular, normal S1/S2, no M/R/G Abd: Soft, non-distended, TTP below umbilicus, normoactive bowels, no masses Extr: 2+ dp bilaterally, no edema Skin: No rashes lesions or erythema Results & Data Results & Data ([facility]) Vital Signs (Past 12 Hours) Vital Signs Temp Pulse Pulse Resp BP Pulse Ox Pulse Ox 05/19/22 00:05 36.6 C 99 H 18 108/90 98 05/19/22 00:39 95 05/19/22 04:39 100 H 05/18/22 20:31 36.6 C 111 H 20 120/83 99 05/18/22 20:00 O2 Del Method O2 Del Method 05/19/22 00:05 Room Air 05/19/22 00:39 Room Air 05/19/22 04:39 05/18/22 20:31 Room Air 05/18/22 20:00 Room Air Resident Activity Tracking Resident Involvement: Resident Care Provided Care Provided: Adult Hospital Medicine
--- NOTE | 2022-05-19 07:38 | Anesthesiology Consultation ---
Date of Service May 19, 2022 Assessment & Plan Chart Review Chart Review: Acceptable Risk for Surgery Consults Requested none History Height/Weight Height: 5 ft 8 in Weight: 88.6 kg Allergies Allergy/AdvReac Type Severity Reaction Status Date / Time bee venom protein (honey bee) Allergy Severe DIFFICULTY Verified 05/17/22 14:09 BREATHING No Known Drug Allergies Allergy Verified 05/17/22 14:09 Medications Home Medications Medication Instructions Recorded Confirmed Last Taken albuterol sulfate 2.5 mg/3 mL 2.5 mg (3 mL) inhalation Q4 PRN 09/29/18 05/17/22 Unknown (0.083 %) solution for nebulization Shortness Of Breath #180 mL aspirin 81 mg tablet,delayed 81 mg PO QAM #90 tabs 09/29/18 05/17/22 05/18/20 release cetirizine 10 mg tablet (Zyrtec) 10 mg PO HS #90 tabs 09/29/18 05/17/22 05/18/20 ipratropium bromide 17 2 puff inhalation QID PRN 09/29/18 05/17/22 Unknown mcg/actuation HFA aerosol inhaler Shortness Of Breath #12.9 grams (Atrovent HFA) epinephrine 0.3 mg/0.3 mL 0.3 mg (0.3 mL) IM Q3H PRN 06/01/20 05/17/22 Unknown injection, auto-injector (EpiPen Allergic Reaction #2 ea 2-Kareem) fimuihogjvqt-wen-vihzt acid-vit 1 tab PO DAILY 06/01/20 05/17/22 Unknown K-lycop 400 mcg-20 mcg-370 mcg tablet (Men's 50 Plus Multivitamin) cholecalciferol (vitamin D3) 125 125 mcg PO DAILY 11/09/20 05/17/22 Unknown mcg (5,000 unit) capsule lisinopril 5 mg tablet 5 mg PO QPM #90 tabs 07/20/21 05/17/22 Unknown sotalol 80 mg tablet 80 mg PO Q12H #180 tabs 07/27/21 05/17/22 Unknown azelastine 137 mcg (0.1 %) nasal 2 spray intranasal BID #90 mL 12/04/21 05/17/22 Unknown spray aerosol triamcinolone acetonide 55 mcg 2 spray intranasal DAILY #50.7 mL 12/04/21 05/17/22 Unknown nasal spray aerosol (Nasacort Allergy) triamcinolone acetonide 40 mg/mL 40 mg IM .every 8 weeks PRN 12/06/21 05/17/22 Unknown suspension for injection (Kenalog) psoriasis #30 mL naproxen 500 mg tablet 500 mg PO BID PRN pain #180 tabs 04/23/22 05/17/22 Unknown pantoprazole 40 mg tablet,delayed 40 mg PO DAILY 05/17/22 05/17/22 Unknown release sucralfate 100 mg/mL oral 10 ml PO QID #420 mL 05/17/22 05/17/22 Unknown suspension Active Medications Generic Name Dose Route Start Last Admin Trade Name Freq PRN Reason Stop Dose Admin Apixaban 5 mg 05/18/22 21:00 05/18/22 20:04 Apixaban 5 Mg Tablet PO 06/17/22 20:59 5 mg BID DEBBY Administration Aspirin 81 mg 05/18/22 09:00 05/18/22 09:03 Aspirin 81 Mg Ectab PO 06/17/22 08:59 81 mg QAM DEBBY Administration Famotidine 20 mg 05/18/22 21:00 05/18/22 20:03 Famotidine 20 Mg Tab PO 06/17/22 20:59 20 mg BID DEBBY Administration Lisinopril 5 mg 05/18/22 21:00 05/18/22 20:04 Lisinopril 5 Mg Tab PO 06/17/22 20:59 5 mg QPM DEBBY Administration Metoprolol Tartrate 50 mg 05/18/22 12:15 05/19/22 05:15 Metoprolol Tartrate 50 Mg Tab PO 06/17/22 12:14 50 mg Q8H DEBBY Administration Pantoprazole Sodium 40 mg 05/18/22 21:00 05/18/22 20:03 Pantoprazole 40 Mg Tab PO 06/17/22 20:59 40 mg BID DEBBY Administration Sotalol HCl 120 mg 05/18/22 23:00 05/19/22 01:27 Sotalol Hcl 80 Mg Tab PO 06/17/22 22:59 120 mg Q12 DEBBY Administration Sucralfate 1 gm 05/18/22 09:00 05/18/22 20:04 Sucralfate 1 Gm/10 Ml Udc PO 06/17/22 08:59 1 gm QID DEBBY Administration Vitamin D 5,000 units 05/18/22 09:00 05/18/22 09:03 Cholecalciferol 5,000 Units 125 Mcg Tab PO 06/17/22 08:59 5,000 units DAILY DEBBY Administration Past Medical History Medical History Allergic rhinitis Chronic sinusitis COVID-19 virus detected COVID + 04/10/20 (symptoms at time of fever and headache which has since resolved), again tested COVID + 05/15/20 (asymptomatic) Dyslipidemia GERD (gastroesophageal reflux disease) Hiatal hernia with gastroesophageal reflux History of cardiomyopathy History of peptic ulcer Mitral valve disorder Paroxysmal atrial fibrillation Psoriasis Reactive airway disease Sinus bradycardia Tinnitus Past Family History Family History Mother Bleeding disorder Allergic rhinitis Hypertension Brother Hypertension Father , struck by lightning No problems noted. Other No family history of adverse response to anesthesia Denies family history of Prostate cancer Diabetes Ulcerative colitis IBS (irritable bowel syndrome) Past Surgical History Surgical History History of cardioversion multiple History of colonoscopy History of esophagogastroduodenoscopy (EGD) History of mitral valve repair (2007) 2008 @ [employer], [place]--follows with Dr. Montero History of tooth extraction all upper teeth, wisdom teeth Status post catheter ablation of atrial fibrillation x2 Social History Smoking Status: Never smoker tobacco type: smokeless tobacco Hx Alcohol Use: No Hx Substance Use: No substance use type: does not use Physical Exam Vital Signs Last Vital Signs Temp 36.6 C 05/19/22 00:05 Pulse 100 H 05/19/22 04:39 Resp 18 05/19/22 00:05 BP 108/90 05/19/22 00:05 Pulse Ox 95 05/19/22 00:39 O2 Del Method Room Air 05/19/22 00:39 Testing Laboratory Results 05/19/22 04:21 05/19/22 04:21 Urine Color Yellow 05/17/22 18:22 Urine Appearance Clear (Clear) 05/17/22 18:22 Urine pH 5.5 (4.5-7.5) 05/17/22 18:22 Ur Specific [place] 1.014 (1.000-1.030) 05/17/22 18:22 Urine Protein Negative (Negative) 05/17/22 18:22 Urine Glucose (UA) Negative (Negative) 05/17/22 18:22 Urine Ketones 2+ (Negative) H 05/17/22 18:22 Urine Nitrite Negative (Negative) 05/17/22 18:22 Ur Leukocyte Esterase Negative (Negative) 05/17/22 18:22 Urine WBC (Auto) 1-5 /hpf (0-5) 05/17/22 18:22 Urine RBC (Auto) 0-4 /hpf (0-4) 05/17/22 18:22 U Hyaline Cast (Auto) 0 /lpf (0-5) 05/17/22 18:22 U Epithel Cells (Auto) 0-5 /lpf (0-5) 05/17/22 18:22 Urine Bacteria (Auto) Negative (Negative) 05/17/22 18:22
--- NOTE | 2022-05-19 09:16 | Cardioversion ---
Date of Service May 19, 2022 PG Electrical Cardioversion Rp Electrical Cardioversion Report Indication: Atrial flutter with rapid ventricular response Written consent was obtained after the risks and benefits were explained, including but not limited to pain, thermal burn, less desirable rhythm, hypotension, thrombus/embolus, stroke, and cardiorespiratory arrest. A time out was taken and the correct patient and procedure identified. Sedation provided by anesthesiology. The biphasic defibrillator was set to 30 joules of energy and synched. After confirmation of sedation and "all clear" safety check the synchronized shock was delivered. This resulted in successful conversion of the atrial fibrillation to junctional bradycardia at 42 bpm. BP normotensive. See nursing notes for dosages and times. There were no complications and the patient recovered uneventfully from the procedure. Coding Level of Care Code 34192 CARDIOVERSION, ELECTIVE Additional Codes Electrical Cardioversion Report ([id number])
--- NOTE | 2022-05-19 09:24 | Cardiology Progress Note ---
Date of Service May 19, 2022 Assessment & Plan (1) Atrial flutter with rapid ventricular response: (2) History of mitral valve repair: (3) Abdominal pain: Plan Patient electrically cardioverted to junctional bradycardia at this morning. Despite slow heart rate he was asymptomatic and normotensive, as noted this is not an unusual rate for him. Discontinue metoprolol. Last sotalol dose was at 1 AM this morning, depending upon his rhythm around noon we will decide on whether he should be discharged on sotalol 80 mg twice daily (his previous dose) or mildly increase his dose to sotalol 120 mg every morning/80 mg every evening. Would recommend apixaban for anticoagulation for at least a week or 2, since atrial mechanical systole can lag behind electrical conversion. Also, currently he has a junctional rhythm with no P waves, if he remains in a junctional rhythm would continue on anticoagulation until he is confirmed to be back in sinus rhythm. Probable discharge after lunch today. Follow-up with Dr. Montero (he has an appointment scheduled in July, but should be seen sooner to address anticoagulation and sotalol dosing). Admission and Anticipated Discharge Date Admission Date: May 17, 2022 Subjective Uneventful night. Improved rate control with rhythm remaining atrial flutter with ventricular rate 80 bpm. Patient denies any chest pain, dyspnea, or subjective palpitations. His abdominal pain completely resolved and he was able to eat a meal without difficulty. After discussion of risks and benefits and sedation by anesthesiology, patient underwent electrical cardioversion this morning (single synchronized shock at 30 J) with rhythm converting to junctional bradycardia at 42 bpm. He was comfortable and symptom-free afterwards. He notes that he has a history of bradycardia when previously on 120 mg sotalol twice daily he often had a heart rate in the 30-40 bpm range, prompting reduction in the dose to 80 mg twice daily. Physical Exam Physical Exam: No distress. BP normotensive Pulse 42 bpm and regular. Skin: no ecchymoses or generalized lesions. HEENT: unremarkable. Neck: no JVD or carotid bruits. Lungs: clear. Cardiac: regular rhythm, normal S1/S2, no murmur or gallop. Abdomen: benign. Extremities: no edema, pulses intact. Neurologic: normal affect and conversation, nonfocal. Results & Data ([facility]) Laboratory Results Normal electrolytes with potassium 3.9, BUN 10, creatinine 0.74. PG Care Time/CCT Total # of Minutes Spent Total Time Spent with Patient: Total time spent is greater than 50% in coordination of care (as documented) at patient's floor/unit and/or counseling patient: Coding Level of Care Code 17845 SUB INP/OBS CARE 3/50MIN Diagnoses Atrial flutter with rapid ventricular response I48.92 History of mitral valve repair Z98.890 Abdominal pain R10.9
[2022-05-19] MEDS: ASPIRIN 81 MG ECTAB PO SCH (09:36)
[2022-05-19] MEDS: APIXABAN 5 MG TABLET PO SCH ×2 (09:36→19:32)
[2022-05-19] MEDS: FAMOTIDINE 20 MG TAB PO SCH ×2 (09:37→19:31)
[2022-05-19] MEDS: SUCRALFATE 1 GM/10 ML UDC PO SCH ×4 (09:37→19:32)
[2022-05-19] MEDS: CHOLECALCIFEROL 5,000 UNITS 125 MCG TAB PO SCH (09:37)
[2022-05-19] MEDS: PANTOprazole 40 MG TAB PO SCH ×2 (09:37→19:31)
--- NOTE | 2022-05-19 11:23 | Anesthesiology Progress Note ---
Date of Service May 19, 2022 Anesthesia Post Procedure Vital Signs Vital Signs: Temp Pulse Pulse Resp BP BP Pulse Ox 05/19/22 09:45 44 L 21 05/19/22 09:30 45 L 0 L 95 05/19/22 09:15 46 L 20 99 05/19/22 09:15 112/66 05/19/22 09:13 44 L 15 99 05/19/22 09:13 101/66 05/19/22 09:10 108/65 05/19/22 09:10 43 L 15 99 05/19/22 09:08 117/65 05/19/22 09:08 44 L 17 98 05/19/22 09:05 58 L 18 99 05/19/22 09:05 123/69 05/19/22 09:03 61 20 99 05/19/22 09:03 105/68 05/19/22 09:00 57 L 19 99 05/19/22 09:00 107/72 05/19/22 08:58 58 L 21 99 05/19/22 08:58 109/68 05/19/22 08:55 108/71 05/19/22 08:55 59 L 18 99 05/19/22 08:53 58 L 19 99 05/19/22 08:53 110/72 05/19/22 08:50 58 L 20 98 05/19/22 08:50 103/70 05/19/22 08:48 61 20 99 05/19/22 08:48 103/69 05/19/22 08:45 57 L 24 99 05/19/22 08:45 107/70 05/19/22 08:43 62 21 98 05/19/22 08:43 107/72 05/19/22 08:40 103/73 05/19/22 08:40 59 L 20 98 05/19/22 08:38 61 22 98 05/19/22 08:38 111/71 05/19/22 08:35 114/74 05/19/22 08:35 60 19 99 05/19/22 08:33 60 18 99 05/19/22 08:33 111/69 05/19/22 08:30 60 20 99 05/19/22 08:30 118/77 05/19/22 08:28 58 L 20 99 05/19/22 08:28 118/77 05/19/22 08:25 128/71 05/19/22 08:25 47 L 21 99 05/19/22 08:23 111/78 05/19/22 08:23 59 L 20 99 05/19/22 08:20 120/73 05/19/22 08:20 59 L 21 99 05/19/22 08:18 51 L 25 H 99 05/19/22 08:18 119/72 05/19/22 08:08 48 L 20 98 05/19/22 08:08 108/65 05/19/22 08:05 105/66 05/19/22 08:05 45 L 20 98 05/19/22 08:03 107/65 05/19/22 08:03 47 L 18 98 05/19/22 08:00 48 L 05/19/22 08:00 45 L 17 99 05/19/22 08:00 115/68 05/19/22 07:58 113/71 05/19/22 07:58 45 L 16 99 05/19/22 07:55 43 L 21 99 05/19/22 07:55 118/68 05/19/22 07:53 126/71 05/19/22 07:53 44 L 17 100 05/19/22 07:50 43 L 20 100 05/19/22 07:50 118/73 05/19/22 07:48 132/69 05/19/22 07:48 46 L 10 L 100 05/19/22 07:45 42 L 13 100 05/19/22 07:45 115/74 05/19/22 07:44 43 L 15 100 05/19/22 07:44 117/73 05/19/22 07:40 95 H 15 96 05/19/22 07:40 101/73 05/19/22 07:35 91 H 31 H 99 05/19/22 07:33 91 H 25 H 97 05/19/22 07:33 133/88 05/19/22 07:30 97 H 15 05/19/22 07:37 36.7 C 43 L 19 118/68 99 05/19/22 07:37 94 H 14 120/83 98 05/19/22 00:05 36.6 C 99 H 18 108/90 98 05/19/22 00:39 05/19/22 04:39 100 H 05/18/22 20:31 36.6 C 111 H 20 120/83 99 05/18/22 20:00 05/18/22 16:13 95 H 16 105/71 96 05/18/22 11:28 101 H 14 115/75 96 Pulse Ox O2 Del Method O2 Del Method O2 Flow Rate 05/19/22 09:45 05/19/22 09:30 05/19/22 09:15 05/19/22 09:15 05/19/22 09:13 05/19/22 09:13 05/19/22 09:10 05/19/22 09:10 05/19/22 09:08 05/19/22 09:08 05/19/22 09:05 05/19/22 09:05 05/19/22 09:03 05/19/22 09:03 05/19/22 09:00 05/19/22 09:00 05/19/22 08:58 05/19/22 08:58 05/19/22 08:55 05/19/22 08:55 05/19/22 08:53 05/19/22 08:53 05/19/22 08:50 05/19/22 08:50 05/19/22 08:48 05/19/22 08:48 05/19/22 08:45 05/19/22 08:45 05/19/22 08:43 05/19/22 08:43 05/19/22 08:40 05/19/22 08:40 05/19/22 08:38 05/19/22 08:38 05/19/22 08:35 05/19/22 08:35 05/19/22 08:33 05/19/22 08:33 05/19/22 08:30 05/19/22 08:30 05/19/22 08:28 05/19/22 08:28 05/19/22 08:25 05/19/22 08:25 05/19/22 08:23 05/19/22 08:23 05/19/22 08:20 05/19/22 08:20 05/19/22 08:18 05/19/22 08:18 05/19/22 08:08 05/19/22 08:08 05/19/22 08:05 05/19/22 08:05 05/19/22 08:03 05/19/22 08:03 05/19/22 08:00 05/19/22 08:00 Nasal Cannula 2 05/19/22 08:00 05/19/22 07:58 05/19/22 07:58 Nasal Cannula 2 05/19/22 07:55 Nasal Cannula 2 05/19/22 07:55 05/19/22 07:53 05/19/22 07:53 Nasal Cannula 2 05/19/22 07:50 Nasal Cannula 2 05/19/22 07:50 05/19/22 07:48 05/19/22 07:48 Nasal Cannula 2 05/19/22 07:45 Nasal Cannula 2 05/19/22 07:45 05/19/22 07:44 Nasal Cannula 2 05/19/22 07:44 05/19/22 07:40 Nasal Cannula 2 05/19/22 07:40 05/19/22 07:35 Nasal Cannula 2 05/19/22 07:33 Nasal Cannula 2 05/19/22 07:33 05/19/22 07:30 05/19/22 07:37 Nasal Cannula 2 05/19/22 07:37 Nasal Cannula 2 05/19/22 00:05 Room Air 05/19/22 00:39 95 Room Air 05/19/22 04:39 05/18/22 20:31 Room Air 05/18/22 20:00 Room Air 05/18/22 16:13 Room Air 05/18/22 11:28 Room Air Pain Intensity Bilateral Lower Abdomen: Pain Intensity: 5 Transfer of Care Handoff Completed per policy Notes Mental Status: alert / awake / arousable and participated in evaluation Patient Amnestic to Procedure: Yes Nausea / Vomiting: adequately controlled Pain: adequately controlled Airway Patency, RR, SpO2: stable & adequate BP & HR: stable & adequate Hydration State: stable & adequate Anesthetic Complications: no major complications apparent
--- NOTE | 2022-05-19 14:47 | Electrocardiogram Report ---
Test Reason : Blood Pressure : / mmHG Vent. Rate : 058 BPM Atrial Rate : 036 BPM P-R Int : 000 ms QRS Dur : 092 ms QT Int : 500 ms P-R-T Axes : -31 013 009 degrees QTc Int : 490 ms Junctional bradycardia Prolonged QT Abnormal ECG When compared with ECG of 17-MAY-2022 18:20, Atrial flutter no longer present HR has decreased by 66 bpm Confirmed by Vadim Hanna ([id number]) on 05/19/2022 2:47:30 PM Referred By: Krish Montero Confirmed By:Vadim Hanna
--- NOTE | 2022-05-19 19:26 | Billing Data ---
Date of Service May 19, 2022 Coding Level of Care Code 18180 SUB INP/OBS CARE MIN
[2022-05-19] MEDS: lisinopril 5 MG TAB PO SCH (19:31)
[2022-05-19] MEDS: SOTALOL HCL 80 MG TAB PO SCH (19:31)
[2022-05-20 05:07] LABS: Hematocrit (blood only) 38.1 % (42.0-52.0); Mean Corpuscular Hemoglobin 30.7 pg (25.0-34.0); Mean Corpuscular Hgb Conc 34.1 g/dL (32.0-36.0); Mean Corpuscular Volume 90.1 fL (80.0-100.0); Platelet Count 190 K/uL (130-400); RDW Coefficient of Variation 13.3 % (11.5-14.5); RDW Standard Deviation 43.5 fL (36.4-46.3); Red Blood Count 4.23 M/uL (4.70-6.10); White Blood Count 7.36 K/ul (4.8-10.8)
[2022-05-20 05:15] LABS: Albumin Globulin Ratio 1.4 (0.9-2); Albumin Level 3.8 gm/dl (3.4-5.0); BUN Creatinine Ratio 15.6 (10-20); Bilirubin,Total 0.4 mg/dl (0.2-1.0); Creatinine Clr Calc Pharmacy 117.3 ml/min; Est GFR (African American) 118.4 ml/min; Est GFR (Non-African American) 102.2 ml/min; Globulin 2.8 gm/dl (2.5-4.0); Potassium 3.7 mmol/L (3.5-5.1); Total Protein 6.6 gm/dl (6.0-8.3)
[2022-05-20] MEDS ORDERED: POTASSIUM CHLORIDE / WTR 10 MEQ/100 ML PLCT IV SCH (07:15)
[2022-05-20] MEDS: PANTOprazole 40 MG TAB PO SCH (07:36)
[2022-05-20] MEDS: SUCRALFATE 1 GM/10 ML UDC PO SCH ×2 (07:36→12:16)
[2022-05-20] MEDS: ASPIRIN 81 MG ECTAB PO SCH (07:36)
[2022-05-20] MEDS: FAMOTIDINE 20 MG TAB PO SCH (07:36)
[2022-05-20] MEDS: APIXABAN 5 MG TABLET PO SCH (07:36)
[2022-05-20] MEDS: SOTALOL HCL 80 MG TAB PO SCH (07:36)
[2022-05-20] MEDS: CHOLECALCIFEROL 5,000 UNITS 125 MCG TAB PO SCH (07:36)
[2022-05-20] MEDS ORDERED: POTASSIUM CHLORIDE CRTAB 20 MEQ TABCR PO STA (07:44)
[2022-05-20] MEDS ORDERED: POLYETHYLENE (MIRALAX) 17 GM PACK PO SCH (09:00)
--- NOTE | 2022-05-20 11:40 | Nuclear Medicine Report ---
NUCLEAR HEPATOBILIARY SCAN CLINICAL HISTORY: Right upper quadrant abdominal pain. COMPARISON STUDY: Abdominal ultrasound dated 05/18/2022. Abdominal CT dated 05/17/2022. TECHNIQUE: Dynamic images of the liver and anterior abdomen were obtained every 5 minutes for a total of 60 minutes following the IV administration of 5.3 mCi of technetium 99m Mebrofenin. FINDINGS: The hepatobiliary scan shows prompt and homogeneous hepatic uptake. There is visualized act ivity within the intra and extrahepatic biliary tree at 10 minutes, and within the gallbladder at 15 minutes. There is normal biliary to bowel transit, with small bowel visualized by 40 minutes. IMPRESSION: Unremarkable nuclear hepatobiliary scan. There is no scintigraphic evidence of cholecyst itis. ACT 112: Negative or not required by law. Electronically signed by: Ivan Maya M.D. 05/20/2022 11:39 AM
--- NOTE | 2022-05-20 14:21 | Discharge Summary ---
Medical Student Supervision Note: I was personally present during medical student patient encounter and independently interviewed and examined the patient and verified the galindo history and physical, reviewed labs and image studies, discussed the case with Wiliam Maxwell and agree with the findings and care plan. 56 y/o M with extensive h/o abdominal symptoms and negative work up in past p resented with acute epigastric pain and bloating after eating at a restaurant. During hospitalization - Negative work up including labs, CT abd/pelvis, abdominal US, HIDA scan. has had negative transglutaminase antibody in 2019. On day of discharge - symptoms improved but bloating persistent. Patient self manages these symptoms with dietary changes. Safe to discharge and to follow up with GI for assessment of EGD need. Date of Service May 20, 2022 Admission HPI Per Admitting Provider Lencho is a 56 year old male with past medical history of paroxysmal atrial fibrillation s/p ablation x2, mitral valve prolapse w/ MR s/p MVR, paroxysmal atrial flutter (2018), prior PUD, GERD, hiatal hernia, gall bladder polyps, non specific colitis, diverticulitis who presented to the ED from cardiology office with new onset atrial flutter since Friday. 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 for dinner. At the restaurant he got a chicken parmesan meal and afterwards that night developed nausea, vomiting x3 in a row, as well as diarrhea. He states that the diarrhea and vomit were yellowish in color (bile color as he describes it) however no blood. Patient states that he started to get the fast heart rate, notified his cardiology office and was seen in the office earlier today. He states he is currently not having any nausea or vomiting, his appetite has been decreased as he hasn't eaten anything since 11PM last night and he is still not hungry. He states he has been able to drink water and power-aide, he does not drink any alcohol since that had triggered an episode of atrial fibrillation in the past. He's been able to get some foods down however has been light. He states the pain is most prominent at the lower pelvic region, although has some right sided abdominal pain as well. He says the pain is a discomfort in nature. He denies any past history of hypertension or diabetes. He takes sotalol 80mg BID and lisinopril 5mg at night for his cardiac issues. In the ED he was given one dose of his home sotalol 80mg, lisinopril 5mg, and metoprolol tartrate 5mg IV. In the ED his heart rate was in the 120's, after the home medications and lopressor his heart rate came down to 100's according to his , and after he got his covid test came back up to the 120's. CT A&P w/o acute intra-abdominal or intrapelvic abnormality; colonic diverticulosis, normal appendix. WBC 11.09, Hgb 15.5, electrolytes and kidney function WNL, Liver enzymes and lipase WNL. Admission Exam Per Admitting Provider Constitutional: WD/WN, vitals as above Eyes: PERRL, conjunctivae normal, anicteric sclerae ENMT: external ear and nose normal, oropharynx normal Respiratory: normal respiratory effort, lungs clear to auscultation Cardiovascular: Rate/Rhythm: regular rhythm and + tachycardic Heart Sounds: normal S1 and normal S2 No peripheral edema. Gastrointestinal (Abdomen): BS+, soft, non-distended, tender to palpation mildly at the LLQ/pelvic area as well as RUQ lateral aspect. Negative Pritchett's sign. Psychiatric: A+Ox3, euthymic affect Principal Diagnosis Atrial flutter Lower abdominal pain Discharge Exam General: No acute distress. Alert and oriented x3. Cardiovascular: Bradycardic. Regular rhythm. No M/R/G Respiratory: Lungs clear to auscultation, Respirations non-labored, Breath sounds equal. No wheezes, rales, rhonchi. Gastrointestinal: Soft. Tender to palpation inferior to the umbilicus. Non- distended, Normal bowel sounds. No masses. Extremities: No edema. Integumentary: Warm, Dry. No rashes. Psych: Appropriate mood and affect. Speech is of normal pace and content Discharge Data Allergies Allergy/AdvReac Type Severity Reaction Status Date / Time bee venom protein (honey bee) Allergy Severe DIFFICULTY Verified 05/17/22 14:09 BREATHING No Known Drug Allergies Allergy Verified 05/17/22 14:09 Consultations 05/17/22 21:05 ED Decision to Admit Stat 05/19/22 13:22 Consult Anesthesiology Routine Procedures Performed Mandaeism of Cardiac Rhythm, Single (08/11/17) Ordered Studies Cardiac Enzymes 05/20/22 Range/Units 04:13 AST 15 (13-39) U/L CBC 05/20/22 Range/Units 04:13 WBC 7.36 (4.8-10.8) K/ul RBC 4.23 L (4.70-6.10) M/uL Hgb 13.0 L (14.0-18.0) g/dl Hct 38.1 L (42.0-52.0) % Plt Count 190 (130-400) K/uL Comprehensive Metabolic Panel 05/20/22 Range/Units 04:13 Sodium 140 (136-145) mmol/L Potassium 3.7 (3.5-5.1) mmol/L Chloride 107 (98-107) mmol/L Carbon Dioxide 29 (21-32) mmol/L BUN 12 (6-23) mg/dl Creatinine 0.77 (0.6-1.4) mg/dl Glucose 102 H (70-99(Fasting)) mg/dl Calcium 9.0 (8.5-10.1) mg/dl AST 15 (13-39) U/L ALT 16 (7-52) U/L Alkaline Phosphatase 38 (34-104) U/L Total Protein 6.6 (6.0-8.3) gm/dl Albumin 3.8 (3.4-5.0) gm/dl Intake and Output 05/19/22 05/20/22 05/20/22 22:59 06:59 14:59 Intake Total 0 / 0 0 / 0 Output Total 3 / 3 Balance 0 / -3 -3 / -3 Intake: Oral 0 / 0 0 / 0 Output: Urine 3 / 3 Other: # Unmeasured Voids 1 Weight 88.6 kg Weight Measurement Method Built in [facility] Abdomen/Pelvis CT 05/17/22 16:[address] WITH IV CONTRAST CT DOSE: 580.88 mGy.cm HISTORY: Acute lower abdominal pain with nausea and vomiting Lower abd pain, vomiting, tender L and central TECHNIQUE: Multiaxial CT images of the abdomen and pelvis were performed following the IV administration of Optiray, A dose lowering technique was utilized adhering to the principles of ALARA. COMPARISON STUDY: CT abdomen and pelvis 02/24/2020, March 11, 2016. FINDINGS: Cardiomegaly with prior median sternotomy and CABG. Prosthetic mitral valve. Clear lung bases. No pneumatosis or pneumoperitoneum. Unremarkable spleen,, gallbladder and adrenal glands. Stable indeterminate ill-defined hypodense 2.8 cm lesion of the posterior right hepatic lobe on image 24 series 2. Based on stability dating back to 2015, this may represent a hemangioma. Patency of the hepatic and portal veins. Stable 7 mm hyperdense focus of the pancreatic tail. Unremarkable kidneys. 5 mm linear cortical calcification of the lateral interpolar left kidney. No ureteral calculi or hydronephrosis. Prostamegaly. Mild urinary bladder wall thickening. Small fat filled inguinal hernias. No abdominal aortic aneurysm or lymphadenopathy. No bowel obstruction or bowel wall thickening. No ascites or mesenteric inflammation. No bowel obstruction or bowel wall thickening. Normal appendix. Unremarkable soft tissues. No acute fracture. IMPRESSION: 1. No acute intra-abdominal or intrapelvic abnormality. 2. Colonic diverticulosis. 3. Normal appendix. ACT 112: Negative or not required by law. The above report was generated using voice recognition software. It may contain grammatical, syntax or spelling errors. Electronically signed by: Arash Cardenas M.D. 05/17/2022 7:59 PM Gallbladder Ultrasound 05/18/22 10:07 US gallbladder CLINICAL HISTORY: RUQ/epigastric pain TECHNIQUE: Multiple real-time sonographic images of the right upper quadrant were obtained. Comparison: Comparison is made to right upper quadrant ultrasound 09/10/[address] abdomen pelvis 05/17/2022 FINDINGS: The liver is diffusely homogenous with normal contour and echogenicity. A hyperechoic area in the right lobe measuring 2.9 x 1.8 x 1.7 cm is compatible with hemangioma seen on prior CT. No intrahepatic ductal dilatation is seen. Low level internal echoes are identified layering dependently within the gallbladder, which is consistent with gallbladder sludge.. There is no pericholecystic fluid present. A gallbladder polyp measures 0.4 cm. The gallbladder wall measures 0.3 cm. A sonographic Pritchett's sign was not elicited by the trimmer hand. The common duct measures 0.4 cm in diameter at the level of the hepatic artery. The visualized portions of the pancreas appear normal. The right kidney shows normal echogenicity, cortical thickness and renal contour. The right kidney shows no evidence of hydronephrosis or mass. No ascites or free fluid is seen in Swann's pouch. IMPRESSION: 1. Gallbladder sludge without evidence of cholecystitis. 2. Gallbladder polyp noted. By SRU criteria, no further evaluation or follow-up is necessary. 3. Hyperechoic mass in the liver likely represents a hemangioma. ACT 112: Negative or not required by law. Electronically signed by: Blair Houston M.D. 05/18/2022 1:46 PM Hepatobiliary Scan Nuclear Medicine 05/20/22 09:15 NUCLEAR HEPATOBILIARY SCAN CLINICAL HISTORY: Right upper quadrant abdominal pain. COMPARISON STUDY: Abdominal ultrasound dated 05/18/2022. Abdominal CT dated 05/17/2022. TECHNIQUE: Dynamic images of the liver and anterior abdomen were obtained every 5 minutes for a total of 60 minutes following the IV administration of 5.3 mCi of technetium 99m Mebrofenin. FINDINGS: The hepatobiliary scan shows prompt and homogeneous hepatic uptake. There is visualized activity within the intra and extrahepatic biliary tree at 10 minutes, and within the gallbladder at 15 minutes. There is normal biliary to bowel transit, with small bowel visualized by 40 minutes. IMPRESSION: Unremarkable nuclear hepatobiliary scan. There is no scintigraphic evidence of cholecystitis. ACT 112: Negative or not required by law. Electronically signed by: Ivan Maya M.D. 05/20/2022 11:39 AM Vent. Rate : 124 BPM Atrial Rate : 122 BPM P-R Int : 000 ms QRS Dur : 092 ms QT Int : 328 ms P-R-T Axes : 000 021 -23 degrees QTc Int : 471 ms Poor data quality, interpretation may be adversely affected Probable Atrial flutter with rapid ventricular response Abnormal ECG When compared with ECG of 17-MAY-2022 13:53, No significant change Confirmed by Vadim Hanna ([id number]) on 05/18/2022 7:53:27 AM Vent. Rate : 058 BPM Atrial Rate : 036 BPM P-R Int : 000 ms QRS Dur : 092 ms QT Int : 500 ms P-R-T Axes : -31 013 009 degrees QTc Int : 490 ms Junctional bradycardia Prolonged QT Abnormal ECG When compared with ECG of 17-MAY-2022 18:20, Atrial flutter no longer present HR has decreased by 66 bpm Confirmed by Vadim Hanna ([id number]) on 05/19/2022 2:47:30 PM Hospital Course (1) Atrial flutter with rapid ventricular response: (2) Abdominal pain: (3) Paroxysmal atrial fibrillation: (4) GERD (gastroesophageal reflux disease): (5) Dyslipidemia: Plan Lencho is a 56 year old male with a past medical Hx of paroxysmal atrial fibrillation/flutter s/p ablation x2, mitral valve prolapse s/p mitral valve repair, prior PUD, GERD, hiatal hernia, and diverticulitis who was admitted on 05/17 with new onset atrial flutter and acute on chronic abdominal pain. Atrial flutter w/ rapid ventricular response: - Occurred in the setting of postprandial abdominal upset. - Patient s/p Cardioversion on 05/19, with resultant intermittent junctional rhythm, otherwise sinus. - CHADSVASC score 1. - Cardiology recommending discharge with 80 mg Sotalol BID. - Per cardiology: "Given absence of P waves, would continue apixaban until he demonstrates sinus rhythm, then likely for a few weeks after that (to ensure return of atrial systole)." - Follow up with outpatient cardiology. Abdominal Pain (Acute on Chronic) - Provoked by eating fatty and greasy foods. Food insensitivity chronically for 15+ years. Had celiac work-up in the past - CT unremarkable for acute intra-abdominal or pelvic process. - CMP unremarkable for acute process. CBC with WBC 7.36 today. - RUQ Ultrasound on 05/17 evidenced gallbladder sludge and polyp. No evidence of acute cholycystitis. - HIDA scan was negative. Previous HIDA scans negative. - Subjective benefit from pantoprazole 40mg BID, famotidine 20mg BID - Consider EGD as outpatient, last documented in 2018. - Discussed continued monitoring and avoidance of triggering foods. - Follow up with outpatient GI. GERD: - Management adjusted as above, on PPI and H2 anna marie. Dyslipidemia: - Managed outpatient with diet/exercise. stable. Patient was full code with this admission. Total Time Total Time Spent Total Time Spent (In Minutes): See attending documentation. Discharge Plan Discharge Items Patient Disposition: Home - Self-Care Reason For Visit: ATRIAL FLUTTER, ABDOMIAL PAIN Discharge Diagnosis: Atrial Flutter S/P Cardioversion, Acute on Chronic Abdominal Pain Activity: Per Instructions section Non-emergency contact: Primary Care Provider, Train Braker and Catalog Library Assistant Call non-emergency contact if: you have any medication questions, your symptoms worsen and you have a fever Follow-up/Referrals: Vadim Hanna MD [Physician] - (Hospital discharge follow-up in 2-4 weeks.) Rajeev Mercado DO [Physician] - (Hospital discharge follow-up 2-4 weeks.) Clarissa Steiner DO [Primary Care Provider] - (Hospital discharge follow-up within 1 week.) Diet: Regular Addtl Attending Provider Instructions: Mr. Matthews, jas were admitted to the hospital for atrial fibrillation as well as abdominal pain. You were evaluated by cardiology and it was determined that you needed to undergo a cardioversion. This cardioversion was completed and you heart went into a junctional rhythm and then eventually returned to sinus rhythm. Pending Studies at Discharge: No Stand-Alone Forms: My [email or web address], Smoking Cessation Medications and DC Order Prescriptions: No Action lisinopril 5 mg tablet 5 mg PO QPM Qty: 90 3RF sotalol 80 mg tablet 80 mg PO Q12H Qty: 180 3RF triamcinolone acetonide [Kenalog] 40 mg/mL suspension 40 mg IM .every 8 weeks PRN (Reason: psoriasis) Qty: 30 1RF naproxen 500 mg tablet 500 mg PO BID PRN (Reason: pain) Qty: 180 1RF albuterol sulfate 2.5 mg /3 mL (0.083 %) solution for nebulization 2.5 mg INHALATION Q4 PRN (Reason: Shortness Of Breath) Qty: 180 1RF aspirin 81 mg tablet,delayed release (DR/EC) 81 mg PO QAM Qty: 90 1RF cetirizine [Zyrtec] 10 mg tablet 10 mg PO HS Qty: 90 1RF Atrovent HFA 17 mcg/actuation HFA aerosol inhaler 2 puff INHALATION QID PRN (Reason: Shortness Of Breath) Qty: 12.9 1RF Men's 50 Plus Multivitamin 400-20-370 mcg tablet 1 tab PO DAILY epinephrine [EpiPen 2-Kareem] 0.3 mg/0.3 mL auto-injector 0.3 mg IM Q3H PRN (Reason: Allergic Reaction) Qty: 2 1RF triamcinolone acetonide [Nasacort Allergy] 55 mcg aerosol,spray 2 spray intranasal DAILY Qty: 50.7 1RF Rx Instructions: administer into each nostril azelastine 137 mcg (0.1 %) aerosol,spray 2 spray intranasal BID Qty: 90 1RF Rx Instructions: administer into each nostril cholecalciferol (vitamin D3) 125 mcg (5,000 unit) capsule 125 mcg PO DAILY pantoprazole 40 mg tablet,delayed release (DR/EC) 40 mg PO DAILY sucralfate 100 mg/mL suspension 10 ml PO QID Qty: 420 1RF Rx Instructions: swish in mouth and swallow; use after food/drink Admission Data Admit Date/Time: 05/17/22 22:29 Attending Provider: Lilibeth Magallanes Admit Provider: Jonnie Rodriguez Primary Care Provider: Clarissa Steiner Other Providers: Xavi Barraza ; Abilio Stearns ; Vadim Hanna ; Jose Ceron ; Gianni Hutchinson ; Roderick Campos ; Noah Miranda Jr ; Krish Montero ; Penny Keller ; Maria Esther Raygoza ; Javon Duncan ; Frederick Gee ; Manav Bennett ; Tonya Hamilton ; Angie Cortes ; Shawn Otto ; Mike García ; Lux Damon ; Gianni Cook V. ; Abel Cates
== END 2022-05-20 16:20 | disposition home or self-care (01) | DRG 309 ==
LOC: ED 16:05 → EDINP 22:29 → SUATTDRO 22:29 → 1E 05-18 03:53

== ENCOUNTER 2025-01-03 13:37 | Observation (INO) ==
--- NOTE | 2025-01-03 14:35 | XRay Report ---
SINGLE VIEW CHEST CLINICAL HISTORY: Dysrhythmia FINDINGS: An AP, portable, upright chest radiograph is compared to chest x-ray and chest CT dated . The patient is status post midline sternotomy and cardiac valve surgery. The heart is enlarg ed. There is pulmonary vascular congestion. Mild atelectasis is noted at the lung bases. No large ple ural effusion or pneumothorax is seen. The skeletal structures are osteopenic. The bony thorax is lilibeth ssly intact. IMPRESSION: Cardiomegaly with pulmonary vascular congestion. ACT 112: Negative or not required by law. Electronically signed by: Ivan Maya M.D. 01/03/2025 2:34 PM
--- NOTE | 2025-01-03 14:36 | Emergency Department Note ---
Impression & Plan Atrial flutter with rapid ventricular response, Poor fluid intake ED Provider Note Provider: Wiliam Maharaj MD CHIEF COMPLAINT: Elevated heart rate, nausea HISTORY OF PRESENT ILLNESS: Patient is a 59-year-old gentleman past medical history of A-fib/a flutter, mitral valve disorder, and hiatal hernia/GERD presenting here today reporting ongoing issues with recurrent A-fib/flutter as well as stomach issues. 10 days ago on ate out and had a little bit of upset stomach took an extra one of his sotalol he is normally on and heart rate improved after was elevated. This past Friday was in the ER received medication to control an elevated heart rate and followed up with cardiology and had a IRISH and electrocardioversion on Friday. Noted yesterday evening after eating dinner that he felt an irregular fast heart rate again. States he has not been eating or drinking very much and he gets nauseous easily. Has had prior workup for radial hernia and gallbladder issues but wonders if these are flaring again. Has seen Dr. Mercado in the past. Intermittent spasms in the mid abdomen reported. Has been taking his medications as directed including Eliquis and sotalol. No syncope. Does have dyspnea on exertion however. No trauma history. PAST MEDICAL HISTORY: As noted above MEDICATIONS: Reviewed no medications SOCIAL HISTORY: , works at the [employer] PHYSICAL EXAM: GENERAL: alert and oriented in no acute distress on stretcher Head: normocephalic and atraumatic EYES: No injection, discharge or icterus. NECK: Trachea midline. Supple. ENT: Mucous membranes pink and moist. LUNGS: Airway patent. No retractions. Breath sounds clear with good air entry bilaterally. HEART: Regular tachycardic rate and rhythm. No chest wall tenderness ABDOMEN: Soft some mild right lower quadrant tenderness. No guarding. SKIN: Acyanotic, warm, dry, without rashes EXTREMITIES: Without swelling, tenderness or deformity NEUROLOGICAL: No focal deficits. No aphasia. No facial droop or slurred speech. Ambulatory. EK bpm likely atrial flutter without acute ST segment elevation or depression and QTc of 513. CONTINUOUS CARDIAC MONITORING: was ordered and showed a heart rate of 112 bpm in what appears to be atrial flutter Patient's laboratory studies and imaging reviewed. Differential includes Infection, dehydration, metabolic abnormality, hypo/hyperglycemia, electrolyte disturbance, anemia, hypoxia, cardiac sources, intracerebral event, toxicologic, neurologic, as well as other pathologies. IMPRESSION/MEDICAL DECISION MAKING: Patient well-appearing in no distress. Does have elevated heart rate and well the computer states sinus tachycardia is under variable and I believe represents a fixed atrial flutter. EKG without evidence of STEMI and denies significant chest pain. Does have intermittent tightness in the mid upper abdomen. States he is having issues eating and drinking. Has been taking his sotalol and Eliquis. Had imaging negative for PE recently. Given some diffuse and lower abdominal discomfort we will complete a CT scan to exclude intra-abdominal process such as diverticulitis which she has had before. No significant upper abdominal tenderness or Pritchett sign I lower suspicion for cholecystitis. Not hypoxic. No clinical signs of fluid overload. Chest x-ray completed radiology report reviewed. Doubt PE to develop since CTA last Friday and his use of Eliquis. Not unstable and given that he has failed to sustain a sinus rhythm with chemical and electrical cardioversion, we will determine if there is some other intra-abdominal process exacerbating/irritating that is causing the recurrent A-fib flutter to occur. Will discuss with cardiology. He is not unstable at this time. Blood work here without anemia leukocytosis today. No significant electrolyte abnormality or signs of renal dysfunction. No evidence concerning for hepatitis or pancreatitis based on labs troponin normal today at 8.5. Chest x-ray with some pulmonary vascular congestion but no effusion reported per radiology report. CT abdomen pelvis without significant acute abnormalities noted. Discussed with the patient's rope walker Dr. Montero. Unfortunately given his sotalol use no real medication changes and a history of when converting from fib flutter to a sinus rhythm of becoming quite bradycardic into the 30s. States he is was hoping to have the patient follow-up again with electrophysiology. Has had distant ablations. He will try to reach out to electrophysiology this afternoon and see if they have other thoughts. Discussed with the patient and his at bedside these options. Again he is been having some eating and nausea and vomiting issues and discussed with him possibility of observation regards to his heart rate and possibly for further GI workup of this. Patient and had long discussion and reveal a stable wish for GI consultation to further evaluate why he is having issues with intake. Given small amount of IV fluid here. Again no acute intervention was recommended given current stability as far as cardiac medications. DIAGNOSIS: Rapid atrial flutter, poor p.o. intake/GI symptoms DISPOSITION: Hospitalist will evaluate Patient was agreeable with this plan. Past Med/Surg History Problem List (Updated 01/03/25 @ 18:14 by Wiliam Maharaj M.D.) Poor fluid intake (Acute) Atrial flutter with rapid ventricular response (Acute) Encounter for pre-operative examination Atrial fibrillation with RVR (Acute) Prediabetes Junctional rhythm Paroxysmal atrial fibrillation GERD (gastroesophageal reflux disease) Arthritis Hiatal hernia with gastroesophageal reflux Allergic rhinitis Chronic sinusitis Dyslipidemia Reactive airway disease Bradycardia Mitral valve disorder Medical History History of anesthesia reaction per pt; harder to get put under, with most recent cardioversion (09/2023) they gave me a little extra and I didn't feel anything, the cardioversion prior I wasn't fully under and I felt it. Pre-diabetes History of mitral valve disease mitral valve prolapse with regurgitation s/p mitral valve replacement with annuloplasty band 2007 Paroxysmal atrial fibrillation Atrial flutter a flutter/a fib Reactive airway disease pt not sure denies lung or breathing problems dx to pt knowledge Hiatal hernia GERD (gastroesophageal reflux disease) Dyslipidemia Osteoarthritis History of COVID-19 x3 Most recent 08/2023- mild cough x3 days > resolved no hx hospitalization. Gall bladder disease Gallbladder polyp History of peptic ulcer History of cardiomyopathy Psoriasis Surgical History History of cardiac cath x3 total, 2 remote hx in [place] per pt. Most recent approx 2016 or 2017 [facility]. All cath's done were without findings per pt. History of colonoscopy Status post catheter ablation of atrial fibrillation x2 History of esophagogastroduodenoscopy (EGD) History of tooth extraction all upper teeth, wisdom teeth History of cardioversion Multiple most recent 09/2023 History of mitral valve repair (2007) Family History Mother Bleeding disorder Allergic rhinitis Hypertension Brother Hypertension Father , struck by lightning No problems noted. Other No family history of adverse response to anesthesia Denies family history of Prostate cancer Diabetes Ulcerative colitis IBS (irritable bowel syndrome) Social History Smoking Status: Never smoker Tobacco Type: Smokeless Tobacco (Dip or Chew) (previous tobacco use) Age Started Using Tobacco: 18; Age Quit Using Tobacco: 32; Second Hand Exposure: No; Do You Dip or Chew Tobacco: No (hx quit 1994); Hx Alcohol Use: No Hx Substance Use: No Preferred Language: Venezuelan Communication Ability: Effective Hearing Ability: Normal Manager Enrollment Required: No Beliefs That Will Affect Care: None marital status: Current Living Situation: Alone current occupational status: employed 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 ) during the past year weight has: remained stable Dental Care, Regularly: Yes Physical Activity Frequency: Daily Seatbelt Use: always Sunscreen Use: No Assistive Devices: Denture - Upper and Other Allergies Allergies Allergy/AdvReac Type Severity Reaction Status Date / Time bee venom protein (honey bee) Allergy Severe Difficulty Verified 12/30/24 08:41 Breathing Home Meds Home Medications Medication Instructions Recorded Confirmed [id number]-[id number] acid-vit 1 tab PO DAILY 06/01/20 01/03/25 K-lycop 400 mcg-20 mcg-370 mcg tablet (Men's 50 Plus Multivitamin) cholecalciferol (vitamin D3) 125 125 mcg PO DAILY 11/09/20 01/03/25 mcg (5,000 unit) capsule apixaban 5 mg tablet (Eliquis) 5 mg PO BID 12/22/24 01/03/25 sotalol 80 mg tablet 80 mg PO BID 12/22/24 01/03/25 epinephrine 0.3 mg/0.3 mL 0.3 mg IM DIRECTED PRN Allergic 12/27/24 01/03/25 injection, auto-injector (EpiPen Reaction 2-Kareem) albuterol sulfate 2.5 mg/3 mL 2.5 mg inhalation UD PRN Shortness 12/30/24 01/03/25 (0.083 %) solution for nebulization Of Breath azelastine 137 mcg (0.1 %) nasal 1 spray intranasal DAILY 12/30/24 01/03/25 spray dicyclomine 20 mg tablet 20 mg PO UD PRN abdominal pain 12/30/24 01/03/25 ipratropium bromide 17 2 puff inhalation UD PRN hx 12/30/24 01/03/25 mcg/actuation HFA aerosol inhaler illness/allergies (Atrovent HFA) pantoprazole 40 mg tablet,delayed 40 mg PO QAM 12/30/24 01/03/25 release triamcinolone acetonide 55 mcg 1 - 2 spray intranasal UD PRN 12/30/24 01/03/25 nasal spray aerosol (Nasacort allergies Allergy) vit C 250 mg-vit E 90 mg-zinc 40 1 tab PO QAM 12/30/24 01/03/25 mg-copper 1 pg-audsdc-ognpbi capsule (PreserVision AREDS-2) Previous Rx's Medication Instructions Recorded cetirizine 10 mg tablet (Zyrtec) 10 mg PO HS #90 tabs 09/29/18 triamcinolone acetonide 40 mg/mL 40 mg IM .every 8 weeks PRN 04/26/24 suspension for injection (Kenalog) psoriasis #30 mL lisinopril 5 mg tablet 5 mg PO QPM #90 tabs 07/09/24 Results & Data (ED) Vital Signs Vital Signs - 24 hr 01/03/25 13:42 01/03/25 13:49 01/03/25 13:51 Temperature 36.0 C L Temperature Source Skin Pulse Rate 112 H 112 H 112 H Pulse Rate [Right Finger] Pulse Rate from SpO2 Sensor 111 H Pulse Rhythm Regular Pulse Rhythm [Right Finger] Pulse Strength [Right Finger] Respiratory Rate 20 23 Respiratory Effort / Characteristics Non-Labored Spontaneous Respiratory Depth Normal Respiratory Pattern Regular Blood Pressure 152/98 H 141/99 H Blood Pressure [Right Arm] Blood Pressure Mean 116 112 Blood Pressure Mean [Right Arm] Blood Pressure Position Sitting Blood Pressure Position [Right Arm] Pulse Oximetry 97 98 Oxygen Delivery Method Room Air Sepsis Recent Fever Within 48 Hours No Sepsis New/Unexplained Change in Mental Status No Sepsis Action Taken by Nursing No Action Required 01/03/25 13:57 01/03/25 13:57 01/03/25 14:30 Temperature Temperature Source Pulse Rate Pulse Rate [Right Finger] 113 H 113 H Pulse Rate from SpO2 Sensor Pulse Rhythm Pulse Rhythm [Right Finger] Regular Regular Pulse Strength [Right Finger] Normal Normal Respiratory Rate 21 22 Respiratory Effort / Characteristics Non-Labored Spontaneous Non-Labored Spontaneous Respiratory Depth Normal Normal Respiratory Pattern Regular Regular Blood Pressure Blood Pressure [Right Arm] 130/91 123/90 Blood Pressure Mean Blood Pressure Mean [Right Arm] 104 101 Blood Pressure Position Blood Pressure Position [Right Arm] Lying Pulse Oximetry 98 955 H Oxygen Delivery Method Room Air Room Air Room Air Sepsis Recent Fever Within 48 Hours Sepsis New/Unexplained Change in Mental Status Sepsis Action Taken by Nursing 01/03/25 14:30 01/03/25 15:00 01/03/25 16:00 Temperature Temperature Source Pulse Rate 113 H 113 H 109 H Pulse Rate [Right Finger] Pulse Rate from SpO2 Sensor 114 H 113 H 109 H Pulse Rhythm Pulse Rhythm [Right Finger] Pulse Strength [Right Finger] Respiratory Rate 24 21 20 Respiratory Effort / Characteristics Respiratory Depth Respiratory Pattern Blood Pressure 123/90 120/83 123/89 Blood Pressure [Right Arm] Blood Pressure Mean 101 92 106 Blood Pressure Mean [Right Arm] Blood Pressure Position Blood Pressure Position [Right Arm] Pulse Oximetry 95 97 93 Oxygen Delivery Method Sepsis Recent Fever Within 48 Hours Sepsis New/Unexplained Change in Mental Status Sepsis Action Taken by Nursing 01/03/25 16:30 01/03/25 17:00 01/03/25 17:30 Temperature Temperature Source Pulse Rate 111 H 109 H 112 H Pulse Rate [Right Finger] Pulse Rate from SpO2 Sensor 111 H 111 H 110 H Pulse Rhythm Pulse Rhythm [Right Finger] Pulse Strength [Right Finger] Respiratory Rate 20 24 Respiratory Effort / Characteristics Respiratory Depth Respiratory Pattern Blood Pressure 124/91 116/86 119/88 Blood Pressure [Right Arm] Blood Pressure Mean 96 97 102 Blood Pressure Mean [Right Arm] Blood Pressure Position Blood Pressure Position [Right Arm] Pulse Oximetry 97 97 Oxygen Delivery Method Sepsis Recent Fever Within 48 Hours Sepsis New/Unexplained Change in Mental Status Sepsis Action Taken by Nursing 01/03/25 17:49 01/03/25 18:00 Temperature Temperature Source Pulse Rate 113 H 112 H Pulse Rate [Right Finger] Pulse Rate from SpO2 Sensor 112 H Pulse Rhythm Pulse Rhythm [Right Finger] Pulse Strength [Right Finger] Respiratory Rate 23 Respiratory Effort / Characteristics Respiratory Depth Respiratory Pattern Blood Pressure 127/93 Blood Pressure [Right Arm] Blood Pressure Mean 100 Blood Pressure Mean [Right Arm] Blood Pressure Position Blood Pressure Position [Right Arm] Pulse Oximetry 97 Oxygen Delivery Method Sepsis Recent Fever Within 48 Hours Sepsis New/Unexplained Change in Mental Status Sepsis Action Taken by Nursing Laboratory Data 01/03/25 13:47 01/03/25 13:47 Lab Results 01/03/25 Range/Units 13:47 WBC 9.66 (4.8-10.8) K/ul RBC 5.01 (4.70-6.10) M/uL Hgb 14.6 (14.0-18.0) g/dl Hct 44.4 (42.0-52.0) % MCV 88.6 (80.0-100.0) fL MCH 29.1 (25.0-34.0) pg MCHC 32.9 (32.0-36.0) g/dL RDW Std Deviation 44.2 (36.4-46.3) fL RDW Coeff of Mariel 13.7 (11.5-14.5) % Plt Count 250 (130-400) K/uL MPV 10.3 (9.4-12.4) fL Immature Gran % (Auto) 0.4 % Neut % (Auto) 68.1 % Lymph % (Auto) 20.0 % [place] % (Auto) 9.6 % Eos % (Auto) 1.3 % Baso % (Auto) 0.6 % Neut # (Auto) 6.57 H (1.40-6.50) K/uL Lymph # (Auto) 1.93 (1.20-3.40) K/uL [place] # (Auto) 0.93 H (0.11-0.59) K/uL Eos # (Auto) 0.13 (0.00-0.50) K/uL Baso # (Auto) 0.06 (0.00-0.20) K/uL Immature Gran # (Auto) 0.04 (0.01-0.20) K/uL PT 11.5 (9.0-12.0) Seconds INR 1.1 (0.9-1.1) APTT 34 H (21-31) Seconds PTT Ratio 1.3 Sodium 141 (136-145) mmol/L Potassium 3.5 (3.5-5.1) mmol/L Chloride 104 (98-107) mmol/L Carbon Dioxide 28 (21-32) mmol/L Anion Gap 9 (3-11) BUN 7 (6-23) mg/dl Creatinine 0.79 (0.6-1.4) mg/dl Est Cr Clr Drug Dosing 108.2 ml/min eGFR 102.97 BUN/Creatinine Ratio 8.9 L (10-20) Glucose 97 (70-99(Fasting)) mg/dl Calcium 9.8 (8.6-10.3) mg/dl Magnesium 2.1 (1.7-2.4) mg/dl Total Bilirubin 0.6 (0.2-1.0) mg/dl AST 25 (13-39) U/L ALT 32 (7-52) U/L Alkaline Phosphatase 61 (34-104) U/L Troponin I High Sens 8.5 (0-20) pg/ml Total Protein 8.3 (6.0-8.3) gm/dl Albumin 4.2 (3.4-5.0) gm/dl Globulin 4.1 H (2.5-4.0) gm/dl Albumin/Globulin Ratio 1.0 (0.9-2) Lipase 42 (11-82) U/L TSH 2.006 (0.300-4.500) uIu/ml Administered Medications Discontinued Medications Lactated Ringer's (Lr) 500 mls @ 999 mls/hr IV .Q31M ONE Stop: 01/03/25 18:06 Last Infusion: 01/03/25 18:21 Dose: Infused Documented By: Admin: 01/03/25 17:50 Dose: 999 mls/hr Documented By: shantell Ioversol (Optiray 320 100ml) 90 ml IV ONCE ONE Stop: 01/03/25 15:40 Last Admin: 01/03/25 15:39 Dose: 90 ml Documented By: DEB Potassium Chloride (Potassium Chloride Crtab 20 Meq Tabcr) 40 meq PO NOW STA Stop: 01/03/25 18:19 Last Admin: 01/03/25 18:30 Dose: 40 meq Documented By: CARLIE Imaging Data Radiologist's Impression: Chest X-Ray 01/03/25 14:07 SINGLE VIEW CHEST CLINICAL HISTORY: Dysrhythmia FINDINGS: An AP, portable, upright chest radiograph is compared to chest x-ray and chest CT dated 12/27/2024. The patient is status post midline sternotomy and cardiac valve surgery. The heart is enlarged. There is pulmonary vascular congestion. Mild atelectasis is noted at the lung bases. No large pleural effusion or pneumothorax is seen. The skeletal structures are osteopenic. The bony thorax is grossly intact. IMPRESSION: Cardiomegaly with pulmonary vascular congestion. ACT 112: Negative or not required by law. Electronically signed by: Ivan Maya M.D. 01/03/2025 2:34 PM Abdomen/Pelvis CT 01/03/25 14:16 CT SCAN OF THE ABDOMEN AND PELVIS WITH IV CONTRAST CLINICAL HISTORY: Abdominal pain and nausea. COMPARISON STUDY: 05/17/2022 TECHNIQUE: Following the IV administration of 90 cc of Optiray 320, CT scan of the abdomen and pelvis is performed from the lung bases to the proximal femora. Images are reviewed in the axial, sagittal, and coronal planes. IV contrast was administered without complication. A dose lowering technique was utilized adhering to the principles of ALARA. CT DOSE: 1164.82 mGy.cm FINDINGS: Lung bases: There are no pleural effusions. There is no basilar parenchymal consolidation. Liver: There are 2 tiny left lobe hepatic hypodensities, possibly representing cysts. Within the right lobe of the liver posteriorly there is a 3 cm hypodense lesion. This remain similar in size to the prior 2022 study when it measured 28 mm. There is been reported to have been present on scans dating back to 2016. The lesion was hyperechoic on ultrasound and likely represents incidental hemangioma. Gallbladder: There is a tiny calcified gallstone. There is no significant gallbladder wall thickening and no pericholecystic edema. Spleen: No splenic masses are visualized. Pancreas: No pancreatic masses are visualized. Adrenal glands: No adrenal masses are visualized Kidneys: There is a 3 mm mid pole left renal calcification. There is a 9 mm right renal cyst. No solid renal masses are visualized. There is no hydronephrosis. Abdominal vasculature: There is no evidence of abdominal aortic dilatation. Bowel: There are no transition zones to indicate bowel obstruction. The appendix is visualized and appears normal. No acute inflammatory changes are visualized. Peritoneum: There is no free air. There is no ascites. Lymphadenopathy: There is no pathologic abdominal or pelvic lymphadenopathy. Pelvic viscera: No abnormal pelvic masses are visualized. The bladder is unremarkable in appearance. Skeletal structures: No suspicious lytic or blastic skeletal lesions are visualized. IMPRESSION: 1. No acute intra-abdominal findings 2. No evidence of bowel obstruction. No evidence of free air 3. No acute inflammatory changes. 4. Normal appendix. 5. 3 cm right hepatic lobe hypodense lesion likely representing a hemangioma ACT 112: Negative or not required by law. Electronically signed by: Charles Gordon M.D. 01/03/2025 4:00 PM Discharge Plan Visit Data Chief Complaint: Cardiac Assessment Stated Complaint: AFIB, HIGH HEART RATE, LIGHT HEADED ED Provider: Wiliam Maharaj Discharge Problem: Atrial flutter with rapid ventricular response, Poor fluid intake Patient Disposition: Being Evaluated by Hospitalist Condition: Fair Forms Stand Alone Forms: My [facility] Prescriptions Prescriptions: No Action triamcinolone acetonide [Kenalog] 40 mg/mL suspension 40 mg IM .every 8 weeks PRN (Reason: psoriasis) Qty: 30 1RF Patient Comments: injections every 8 weeks, 9 weeks since last one lisinopril 5 mg tablet 5 mg PO QPM Qty: 90 3RF cetirizine [Zyrtec] 10 mg tablet 10 mg PO HS Qty: 90 1RF Men's 50 Plus Multivitamin 400-20-370 mcg tablet 1 tab PO DAILY cholecalciferol (vitamin D3) 125 mcg (5,000 unit) capsule 125 mcg PO DAILY sotalol 80 mg tablet 80 mg PO BID Eliquis 5 mg tablet 5 mg PO BID Rx Instructions: PER PT "JUST STARTED TAKING". epinephrine [EpiPen 2-Kareem] 0.3 mg/0.3 mL auto-injector 0.3 mg IM DIRECTED PRN (Reason: Allergic Reaction) Patient Comments: ? rx might be out dated, pcp to get me some more PreserVision AREDS-2 250-90-40-1 mg Capsule 1 tab PO QAM Patient Comments: not sure if areds or areds 2 albuterol sulfate 2.5 mg /3 mL (0.083 %) solution for nebulization 2.5 mg INHALATION UD PRN (Reason: Shortness Of Breath) Patient Comments: no use in past 6 months dicyclomine 20 mg tablet 20 mg PO UD PRN (Reason: abdominal pain) pantoprazole 40 mg tablet,delayed release (DR/EC) 40 mg PO QAM triamcinolone acetonide [Nasacort Allergy] 55 mcg aerosol,spray 1 - 2 spray intranasal UD PRN (Reason: allergies) Rx Instructions: administer into each nostril azelastine 137 mcg (0.1 %) spray,non-aerosol 1 spray intranasal DAILY Patient Comments: 1 in each nostril Rx Instructions: administer into each nostril Atrovent HFA 17 mcg/actuation HFA aerosol inhaler 2 puff INHALATION UD PRN (Reason: hx illness/allergies) Patient Comments: last use spring 2024, at least 5 months per pt Referrals Referrals: Clarissa Steiner DO [Primary Care Provider] -
[2025-01-03 14:38] LABS: Hematocrit (blood only) 44.4 % (42.0-52.0); Hemoglobin 14.6 g/dl (14.0-18.0); Immature Granulocytes # (auto) 0.04 K/uL (0.01-0.20); Immature Granulocytes % (auto) 0.4 %; Mean Corpuscular Hemoglobin 29.1 pg (25.0-34.0); Mean Corpuscular Volume 88.6 fL (80.0-100.0); Platelet Count 250 K/uL (130-400); RDW Standard Deviation 44.2 fL (36.4-46.3); Red Blood Count 5.01 M/uL (4.70-6.10); White Blood Count 9.66 K/ul (4.8-10.8)
[2025-01-03 14:42] LABS: Alanine Aminotransferase 32.0 U/L (7-52); Albumin Globulin Ratio 1.0 (0.9-2); Albumin Level 4.2 gm/dl (3.4-5.0); Alkaline Phosphatase 61.0 U/L (34-104); Anion Gap 9.0 (3-11); Bilirubin,Total 0.6 mg/dl (0.2-1.0); Blood Urea Nitrogen 7.0 mg/dl (6-23); Calcium 9.8 mg/dl (8.6-10.3); Carbon Dioxide 28.0 mmol/L (21-32); Chloride 104.0 mmol/L (98-107); Creatinine Clr Calc Pharmacy 108.2 ml/min; Globulin 4.1 gm/dl (2.5-4.0); Glucose 97.0 mg/dl (70-99(Fasting)); Lipase 42.0 U/L (11-82); Magnesium 2.1 mg/dl (1.7-2.4); Potassium 3.5 mmol/L (3.5-5.1); Sodium 141.0 mmol/L (136-145); Total Protein 8.3 gm/dl (6.0-8.3)
[2025-01-03 14:53] LABS: INR 1.1 (0.9-1.1); Partial Thromboplastin Time 34 Seconds (21-31); Prothrombin Time 11.5 Seconds (9.0-12.0)
[2025-01-03 14:55] LABS: Thyroid Stimulating Hormone 2.006 uIu/ml (0.300-4.500)
[2025-01-03] MEDS: OPTIRAY 320 100ml IV ONE (15:39)
--- NOTE | 2025-01-03 16:03 | CT Scan Report ---
CT SCAN OF THE ABDOMEN AND PELVIS WITH IV CONTRAST CLINICAL HISTORY: Abdominal pain and nausea. COMPARISON STUDY: 05/17/2022 TECHNIQUE: Following the IV administration of 90 cc of Optiray 320, CT scan of the abdomen and pelvi s is performed from the lung bases to the proximal femora. Images are reviewed in the axial, sagittal , and coronal planes. IV contrast was administered without complication. A dose lowering technique wa s utilized adhering to the principles of ALARA. CT DOSE: 1164.82 mGy.cm FINDINGS: Lung bases: There are no pleural effusions. There is no basilar parenchymal consolidation. Liver: There are 2 tiny left lobe hepatic hypodensities, possibly representing cysts. Within the righ t lobe of the liver posteriorly there is a 3 cm hypodense lesion. This remain similar in size to the prior 2022 study when it measured 28 mm. There is been reported to have been present on scans dating back to 2016. The lesion was hyperechoic on ultrasound and likely represents incidental hemangioma. Gallbladder: There is a tiny calcified gallstone. There is no significant gallbladder wall thickening and no pericholecystic edema. Spleen: No splenic masses are visualized. Pancreas: No pancreatic masses are visualized. Adrenal glands: No adrenal masses are visualized Kidneys: There is a 3 mm mid pole left renal calcification. There is a 9 mm right renal cyst. No stephanie d renal masses are visualized. There is no hydronephrosis. Abdominal vasculature: There is no evidence of abdominal aortic dilatation. Bowel: There are no transition zones to indicate bowel obstruction. The appendix is visualized and ap pears normal. No acute inflammatory changes are visualized. Peritoneum: There is no free air. There is no ascites. Lymphadenopathy: There is no pathologic abdominal or pelvic lymphadenopathy. Pelvic viscera: No abnormal pelvic masses are visualized. The bladder is unremarkable in appearance . Skeletal structures: No suspicious lytic or blastic skeletal lesions are visualized. IMPRESSION: 1. No acute intra-abdominal findings 2. No evidence of bowel obstruction. No evidence of free air 3. No acute inflammatory changes. 4. Normal appendix. 5. 3 cm right hepatic lobe hypodense lesion likely representing a hemangioma ACT 112: Negative or not required by law. Electronically signed by: Charles Gordon M.D. 01/03/2025 4:00 PM
[2025-01-03] MEDS: LACTATED RINGER'S 500 ML IV ONE (17:50)
--- NOTE | 2025-01-03 18:13 | History & Physical Report ---
Date of Service January 03, 2025 Assessment & Plan (1) Atrial flutter with rapid ventricular response: (2) Nausea and vomiting: (3) Epigastric abdominal pain: Plan This patient is a 51-year-old male with a history of paroxysmal atrial flutter and fibrillation s/p ablation x 2 and DC cardioversion x 3, MVP with MR s/p mitral valve replacement with annuloplasty band, GERD/gastric ulcer, IBS, hyperlipidemia, and psoriasis who presents to the ED with recurrent rapid atrial flutter, heart palpitations, as well as nausea. He was seen in the ED on 12/27 for rapid atrial flutter and received IV diltiazem. He then had a IRISH and cardioversion on 12/[address] Montero. He noticed that he went back into rapid atrial flutter again on 01/02. He also has been complaining of a lot of nausea, epigastric abdominal pain, vomiting especially after eating fatty foods, and frequent belching along with a 10 and 12 pound weight loss, and poor appetite for the last 3 months. He has been taking Eliquis for the last week and sotalol chronically. In the ED, he was given IV fluids and had a CT abdomen/pelvis without significant acute abnormalities. He had a normal troponin and otherwise normal laboratory workup. Consultation was had with cardiology by the ED physician who recommended further evaluation by electrophysiology. The patient and his were also interested in further GI consultation. The patient will be admitted for rapid atrial flutter and significant nausea wi th vomiting and weight loss. #Rapid atrial flutter/paroxysmal atrial fibrillation-s/p ablation x 2 and DC cardioversion x 3, now back in rapid atrial flutter which she does not tolerate well. Blood pressures are stable, rates are currently in the 1 teens - Admit to PCU for telemetry monitoring - Consult electrophysiology for further evaluation-May need an ablation - Continue sotalol for now - Can give IV diltiazem as needed however noted that he bradys into the 30s when he converts to sinus at times - Follow BMP, magnesium and keep electrolytes optimal-give 40 mEq of p.o. KCl on admission - Make n.p.o. at midnight in case of repeat IRISH and cardioversion in the morning - Continue Eliquis 5 mg p.o. twice daily #HTN/history of mitral valve replacement with annuloplasty band-BPs are controlled. Echo in 11/2023 with preserved EF, mitral valve anoplasty ring with mild MR no significant stenosis - Continue home lisinopril and monitor BPs #GERD/history of gastric ulcer/IBS-with recent weight loss and ongoing nausea, epigastric pains especially after eating fatty foods, low appetite. Has lost 10-12 pounds in the last few months. CT abdomen/pelvis without acute findings- w/ tiny calcified gallstone. Could be PUD vs GB dysfunction? LFTs normal. No anemia. - Order heart healthy diet - Consult GI to see about possible EGD but not likely to perform this while inpatient while having ongoing cardiac issues - Continue pantoprazole and increase to twice daily dosing - Consider HIDA scan inpatient versus outpatient #Psoriasis-no acute issues, receives injections of triamcinolone IM every 6 to 8 weeks-cautioned about use of chronic steroids over the long-term like this-not a great long-term solution DVT prophylaxis-continue Eliquis Disposition-admit to PCU History of Present Illness Chief Complaint: Atrial flutter, weakness Primary Care Provider: Clarissa Steiner, This patient is a 51-year-old male with a history of paroxysmal atrial flutter and fibrillation s/p ablation x 2 and DC cardioversion x 3, MVP with MR s/p mitral valve replacement with annuloplasty band, GERD/gastric ulcer, IBS, hyperlipidemia, and psoriasis who presents to the ED with recurrent rapid atrial flutter, heart palpitations, as well as nausea. He was seen in the ED on 12/27 for rapid atrial flutter and received IV diltiazem. He then had a IRISH and cardioversion on 12/[address] Montero. He noticed that he went back into rapid atrial flutter again on 01/02. He also has been complaining of a lot of nausea, epigastric abdominal pain, vomiting especially after eating fatty foods, and frequent belching along with a 10 and 12 pound weight loss, and poor appetite for the last 3 months. He has been taking Eliquis for the last week and sotalol chronically. In the ED, he was given IV fluids and had a CT abdomen/pelvis without significant acute abnormalities. He had a normal troponin and otherwise normal laboratory workup. Consultation was had with cardiology by the ED physician who recommended further evaluation by electrophysiology. The patient and his were also interested in further GI consultation. The patient will be admitted for rapid atrial flutter and significant nausea with vomiting and weight loss. Allergies Allergy/AdvReac Type Severity Reaction Status Date / Time bee venom protein (honey bee) Allergy Severe Difficulty Verified 12/30/24 08:41 Breathing Home Medications Medication Instructions Recorded Confirmed Type cetirizine 10 mg tablet (Zyrtec) 10 mg PO HS #90 tabs 09/29/18 01/03/25 Rx cnvgsvgsufav-odz-iwjjx acid-vit 1 tab PO DAILY 06/01/20 01/03/25 History K-lycop 400 mcg-20 mcg-370 mcg tablet (Men's 50 Plus Multivitamin) cholecalciferol (vitamin D3) 125 125 mcg PO DAILY 11/09/20 01/03/25 History mcg (5,000 unit) capsule triamcinolone acetonide 40 mg/mL 40 mg IM .every 8 weeks PRN 04/26/24 01/03/25 Rx suspension for injection (Kenalog) psoriasis #30 mL lisinopril 5 mg tablet 5 mg PO QPM #90 tabs 07/09/24 01/03/25 Rx apixaban 5 mg tablet (Eliquis) 5 mg PO BID 12/22/24 01/03/25 History sotalol 80 mg tablet 80 mg PO BID 12/22/24 01/03/25 History epinephrine 0.3 mg/0.3 mL 0.3 mg IM DIRECTED PRN Allergic 12/27/24 01/03/25 History injection, auto-injector (EpiPen Reaction 2-Kareem) albuterol sulfate 2.5 mg/3 mL 2.5 mg inhalation UD PRN Shortness 12/30/24 01/03/25 History (0.083 %) solution for nebulization Of Breath azelastine 137 mcg (0.1 %) nasal 1 spray intranasal DAILY 12/30/24 01/03/25 History spray ipratropium bromide 17 2 puff inhalation UD PRN hx 12/30/24 01/03/25 History mcg/actuation HFA aerosol inhaler illness/allergies (Atrovent HFA) pantoprazole 40 mg tablet,delayed 40 mg PO QAM 12/30/24 01/03/25 History release triamcinolone acetonide 55 mcg 1 - 2 spray intranasal UD PRN 12/30/24 01/03/25 History nasal spray aerosol (Nasacort allergies Allergy) vit C 250 mg-vit E 90 mg-zinc 40 1 tab PO QAM 12/30/24 01/03/25 History mg-copper 1 [id number]-[id number]-gsspja capsule (PreserVision AREDS-2) Past Med/Surg History Problem List (Updated 01/03/25 @ 18:14 by Wiliam Maharaj M.D.) Poor fluid intake (Acute) Atrial flutter with rapid ventricular response (Acute) Encounter for pre-operative examination Atrial fibrillation with RVR (Acute) Prediabetes Junctional rhythm Paroxysmal atrial fibrillation GERD (gastroesophageal reflux disease) Arthritis Hiatal hernia with gastroesophageal reflux Allergic rhinitis Chronic sinusitis Dyslipidemia Reactive airway disease Bradycardia Mitral valve disorder Medical History History of anesthesia reaction per pt; harder to get put under, with most recent cardioversion (09/2023) they gave me a little extra and I didn't feel anything, the cardioversion prior I wasn't fully under and I felt it. Pre-diabetes History of mitral valve disease mitral valve prolapse with regurgitation s/p mitral valve replacement with annuloplasty band 2007 Paroxysmal atrial fibrillation Atrial flutter a flutter/a fib Reactive airway disease pt not sure denies lung or breathing problems dx to pt knowledge Hiatal hernia GERD (gastroesophageal reflux disease) Dyslipidemia Osteoarthritis History of COVID-19 x3 Most recent 08/2023- mild cough x3 days > resolved no hx hospitalization. Gall bladder disease Gallbladder polyp History of peptic ulcer History of cardiomyopathy Psoriasis Surgical History History of cardiac cath x3 total, 2 remote hx in [place] per pt. Most recent approx 2016 or 2017 [facility]. All cath's done were without findings per pt. History of colonoscopy Status post catheter ablation of atrial fibrillation x2 History of esophagogastroduodenoscopy (EGD) History of tooth extraction all upper teeth, wisdom teeth History of cardioversion Multiple most recent 09/2023 History of mitral valve repair (2007) Family History Mother Bleeding disorder Allergic rhinitis Hypertension Brother Hypertension Father , struck by lightning No problems noted. Other No family history of adverse response to anesthesia Denies family history of Prostate cancer Diabetes Ulcerative colitis IBS (irritable bowel syndrome) Social History Smoking Status: Never smoker Tobacco Type: Smokeless Tobacco (Dip or Chew) (previous tobacco use) Age Started Using Tobacco: 18; Age Quit Using Tobacco: 32; Second Hand Exposure: No; Do You Dip or Chew Tobacco: No (hx quit 1994); Hx Alcohol Use: No Hx Substance Use: No Preferred Language: Filipino Communication Ability: Effective Hearing Ability: Normal Silver Cleaner Required: No Beliefs That Will Affect Care: None marital status: Current Living Situation: Alone current occupational status: employed 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 ) during the past year weight has: remained stable Dental Care, Regularly: Yes Physical Activity Frequency: Daily Seatbelt Use: always Sunscreen Use: No Assistive Devices: Denture - Upper and Other Review of Systems Review of Systems: All systems reviewed & are unremarkable except as noted in HPI & below Physical Exam Constitutional: WD/WN, vitals as above Eyes: PERRL, conjunctivae normal, anicteric sclerae ENMT: external ear and nose normal, oropharynx normal Neck: trachea midline, no thyromegaly Respiratory: normal respiratory effort, lungs clear to auscultation Cardiovascular: Rate/Rhythm: + tachycardic and + irregularly irregular Heart Sounds: no murmur Extremities: no edema Chest (Breasts): Chest: normal inspection of chest Gastrointestinal (Abdomen): normal bowel sounds, soft, nontender, no hepatosplenomegaly Musculoskeletal: Extremities: extremities normal to inspection; no cyanosis and no clubbing Skin: no rashes, warm and dry Neurologic: moves all extremities and awake; no focal motor deficits Psychiatric: A+Ox3, euthymic affect Lymphatic: no lymphedema Results & Data Results & Data Vital Signs (Past 12 Hours) Vital Signs Temp Pulse Pulse Resp BP BP Pulse Ox 01/03/25 17:49 113 H 01/03/25 17:30 112 H 24 119/88 97 01/03/25 17:00 109 H 116/86 01/03/25 16:30 111 H 20 124/91 97 01/03/25 16:00 109 H 20 123/89 93 01/03/25 15:00 113 H 21 120/83 97 01/03/25 14:30 113 H 24 123/90 95 01/03/25 14:30 113 H 22 123/90 955 H 01/03/25 13:57 113 H 21 130/91 98 01/03/25 13:57 01/03/25 13:51 112 H 01/03/25 13:49 112 H 23 141/99 H 98 01/03/25 13:42 36.0 C L 112 H 20 152/98 H 97 O2 Del Method 01/03/25 17:49 01/03/25 17:30 01/03/25 17:00 01/03/25 16:30 01/03/25 16:00 01/03/25 15:00 01/03/25 14:30 01/03/25 14:30 Room Air 01/03/25 13:57 Room Air 01/03/25 13:57 Room Air 01/03/25 13:51 01/03/25 13:49 01/03/25 13:42 Room Air Laboratory Results CBC, PT/PTT/INR, BMP, magnesium, LFTs, troponin, lipase, TSH reviewed Diagnostic Findings CT abdomen/pelvis and CXR reviewed: Chest X-Ray 01/03/25 14:07 SINGLE VIEW CHEST CLINICAL HISTORY: Dysrhythmia FINDINGS: An AP, portable, upright chest radiograph is compared to chest x-ray and chest CT dated 12/27/2024. The patient is status post midline sternotomy and cardiac valve surgery. The heart is enlarged. There is pulmonary vascular congestion. Mild atelectasis is noted at the lung bases. No large pleural effusion or pneumothorax is seen. The skeletal structures are osteopenic. The bony thorax is grossly intact. IMPRESSION: Cardiomegaly with pulmonary vascular congestion. Abdomen/Pelvis CT 01/03/25 14:16 CT SCAN OF THE ABDOMEN AND PELVIS WITH IV CONTRAST CLINICAL HISTORY: Abdominal pain and nausea. COMPARISON STUDY: 05/17/2022 TECHNIQUE: Following the IV administration of 90 cc of Optiray 320, CT scan of the abdomen and pelvis is performed from the lung bases to the proximal femora. Images are reviewed in the axial, sagittal, and coronal planes. IV contrast was administered without complication. A dose lowering technique was utilized adhering to the principles of ALARA. CT DOSE: 1164.82 mGy.cm FINDINGS: Lung bases: There are no pleural effusions. There is no basilar parenchymal consolidation. Liver: There are 2 tiny left lobe hepatic hypodensities, possibly representing cysts. Within the right lobe of the liver posteriorly there is a 3 cm hypodense lesion. This remain similar in size to the prior 2022 study when it measured 28 mm. There is been reported to have been present on scans dating back to 2016. The lesion was hyperechoic on ultrasound and likely represents incidental hemangioma. Gallbladder: There is a tiny calcified gallstone. There is no significant gallbladder wall thickening and no pericholecystic edema. Spleen: No splenic masses are visualized. Pancreas: No pancreatic masses are visualized. Adrenal glands: No adrenal masses are visualized Kidneys: There is a 3 mm mid pole left renal calcification. There is a 9 mm right renal cyst. No solid renal masses are visualized. There is no hydronephrosis. Abdominal vasculature: There is no evidence of abdominal aortic dilatation. Bowel: There are no transition zones to indicate bowel obstruction. The appendix is visualized and appears normal. No acute inflammatory changes are visualized. Peritoneum: There is no free air. There is no ascites. Lymphadenopathy: There is no pathologic abdominal or pelvic lymphadenopathy. Pelvic viscera: No abnormal pelvic masses are visualized. The bladder is unremarkable in appearance. Skeletal structures: No suspicious lytic or blastic skeletal lesions are visualized. IMPRESSION: 1. No acute intra-abdominal findings 2. No evidence of bowel obstruction. No evidence of free air 3. No acute inflammatory changes. 4. Normal appendix. 5. 3 cm right hepatic lobe hypodense lesion likely representing a hemangioma ECG Additional Comments: ECG on 01/03/2025 at 1347 with atrial flutter, rate 112, no acute ischemic changes Code Status & VTE Plan Code Status Full code VTE Prophylaxis Plan VTE Prophylaxis will be ordered: Yes PG Care Time/CCT Total # of Minutes Spent Total Time Spent with Patient: Total time spent is greater than 50% in coordination of care (as documented) at patient's floor/unit and/or counseling patient: Coding Level of Care Code 62110 INT INP/OBS CARE 3/75MIN Diagnoses Atrial flutter with rapid ventricular response I48.92 Nausea and vomiting R11.2 Epigastric abdominal pain R10.13
[2025-01-03] MEDS: POTASSIUM CHLORIDE CRTAB 20 MEQ TABCR PO STA (18:30)
[2025-01-03] MEDS ORDERED: ALBUTEROL 0.083% NEBU SOLN 3 ML VIAL INH PRN (20:56)
[2025-01-03] MEDS: APIXABAN 5 MG TABLET PO SCH (21:39)
[2025-01-03] MEDS: CETIRIZINE HCL 10 MG TABLET PO SCH (21:39)
[2025-01-03] MEDS: SOTALOL HCL 80 MG TAB PO SCH (21:39)
[2025-01-04 06:37] LABS: Anion Gap 9.0 (3-11); Blood Urea Nitrogen 8.0 mg/dl (6-23); Calcium 9.0 mg/dl (8.6-10.3); Carbon Dioxide 25.0 mmol/L (21-32); Chloride 107.0 mmol/L (98-107); Creatinine Clr Calc Pharmacy 115.9 ml/min; Glucose 80.0 mg/dl (70-99(Fasting)); Magnesium 2.0 mg/dl (1.7-2.4); Potassium 4.3 mmol/L (3.5-5.1); Sodium 141.0 mmol/L (136-145)
--- NOTE | 2025-01-04 08:54 | Cardiology Consultation ---
Date of Consultation January 04, 2025 Assessment & Plan (1) Atrial flutter with rapid ventricular response: Plan 1. Atrial flutter: This seems to be the most accurate description of his current arrhythmia. Quite regular at times. There are some irregularity which appears to be related to variable AV conduction. This does not appear to be in atrial fibrillation. Given his history of mitral valve repair and 2 prior pulmonary vein isolation's this is more likely to be left atrial flutter than right. He does not appear to be typical right atrial isthmus dependent flutter based on the EKG appearance. We did discuss several options for management. He has had several recurrences in relatively short order despite use of sotalol. This would suggest that a new management strategy is needed. We did discuss increasing sotalol to his prior dose. However, this would likely necessitate pacemaker implantation given his history of significant bradycardia and junctional rhythms on higher doses of sotalol. I think dofetilide would be a reasonable option especially in the setting of his mildly reduced LV systolic function. This would require discontinuing sotalol and then initiating dofetilide. He would need to be in the hospital for a few days to affect the change and may require cardioversion afterwards. He seems quite young for use of amiodarone. This would also likely produce significant bradycardia necessitate pacemaker implantation. His mildly reduced LV systolic function puts him in a category of patients who are at higher risk for arrhythmia with 1C agents. We also discussed catheter-based therapy. He is familiar given his prior ablations. I think this would be the best management overall but we are not able to perform left atrial procedures at our facility. I agreed to contact [facility] to see if they be willing to accommodate the patient and approach this with catheter-based treatment. 2. Cardiomyopathy: At the time of his transesophageal echocardiogram few days ago he appeared to have mildly reduced LV systolic function. Possibly related to his arrhythmia at that time. He has not been symptomatic from heart failure. Lung examination benign. Not a good candidate for metoprolol given his history of bradycardia and current use of sotalol. I do not think he requires any diuresis or treatment for decompensated heart failure. Perhaps reevaluating LV function once he has returned to sinus rhythm would be worthwhile. 3. Mitral valve disease: History of prolapse and regurgitation. Repair performed in 2004. Annuloplasty ring in place. Minimal mitral valve disease on transesophageal echocardiogram performed a few days ago. History of Present Illness Reason for Consultation: Atrial flutter Requesting Physician: Jaz Attending Physician: Sudha Sebastian MD History of Present Illness The patient is a 59-year-old gentleman with a history of atrial fibrillation and atrial flutter who presented to the hospital with recurrent palpitations. He has a remote history of mitral valve disease including mitral valve prolapse. He underwent a mitral valve repair in [facility] in 2007. Subsequently he developed atrial fibrillation and underwent pulmonary vein isolation in [facility] on 2 occasions first in 2009 and again in 2011. He had been on some in the rhythm medication as well including dronedarone which appeared to be ineffective. He was ultimately placed on sotalol. However, he had recurrent episodes of atrial flutter requiring cardioversions on multiple occasions. He 1 point was also noted to have significant bradycardia and periods of a junctional rhythm. His sotalol was subsequently reduced to the current dose which is 80 mg twice daily. He presented our hospital last week with symptoms of tachycardia, palpitations, dizziness and shortness of breath. He was found to be in a rapid atrial flutter. Rate control was initially tried but he eventually underwent IRISH and cardioversion on December 31. He returned home on his usual dose of sota lol but developed palpitations again on January 02. He believes his episodes can be precipitated by eating. In addition to his recent arrhythmias, he has been struggling with some difficulty swallowing. He feels that "food gets stuck" in his epigastrium. As such he has limited his intake to soft or liquid foods. This has resulted in some significant weight loss. He feels that the most recent episode of atrial flutter was precipitated by trying to eat some tacos. He developed his usual epigastric discomfort and shortly after the palpitations. He did not develop the associated dizziness or breathing difficulty. Currently he seems to be feeling well. He has been ambulatory around his room without symptoms of dizziness, chest pain or breathing difficulty. Allergies Allergy/AdvReac Type Severity Reaction Status Date / Time bee venom protein (honey bee) Allergy Severe Difficulty Verified 12/30/24 08:41 Breathing Home Medications Medication Instructions Recorded Confirmed Type cetirizine 10 mg tablet (Zyrtec) 10 mg PO HS #90 tabs 09/29/18 01/03/25 Rx gmjxzpumthsg-isd-botlr acid-vit 1 tab PO DAILY 06/01/20 01/03/25 History K-lycop 400 mcg-20 mcg-370 mcg tablet (Men's 50 Plus Multivitamin) cholecalciferol (vitamin D3) 125 125 mcg PO DAILY 11/09/20 01/03/25 History mcg (5,000 unit) capsule triamcinolone acetonide 40 mg/mL 40 mg IM .every 8 weeks PRN 04/26/24 01/03/25 Rx suspension for injection (Kenalog) psoriasis #30 mL lisinopril 5 mg tablet 5 mg PO QPM #90 tabs 07/09/24 01/03/25 Rx apixaban 5 mg tablet (Eliquis) 5 mg PO BID 12/22/24 01/03/25 History sotalol 80 mg tablet 80 mg PO BID 12/22/24 01/03/25 History epinephrine 0.3 mg/0.3 mL 0.3 mg IM DIRECTED PRN Allergic 12/27/24 01/03/25 History injection, auto-injector (EpiPen Reaction 2-Kareem) albuterol sulfate 2.5 mg/3 mL 2.5 mg inhalation UD PRN Shortness 12/30/24 01/03/25 History (0.083 %) solution for nebulization Of Breath azelastine 137 mcg (0.1 %) nasal 1 spray intranasal DAILY 12/30/24 01/03/25 History spray ipratropium bromide 17 2 puff inhalation UD PRN hx 12/30/24 01/03/25 History mcg/actuation HFA aerosol inhaler illness/allergies (Atrovent HFA) triamcinolone acetonide 55 mcg 1 - 2 spray intranasal UD PRN 12/30/24 01/03/25 History nasal spray aerosol (Nasacort allergies Allergy) vit C 250 mg-vit E 90 mg-zinc 40 1 tab PO QAM 12/30/24 01/03/25 History mg-copper 1 fb-zmrjnl-ymfenl capsule (PreserVision AREDS-2) pantoprazole 40 mg tablet,delayed 40 mg PO BID #60 tabs 01/04/25 Rx release Patient History Medical History History of anesthesia reaction per pt; harder to get put under, with most recent cardioversion (09/2023) they gave me a little extra and I didn't feel anything, the cardioversion prior I wasn't fully under and I felt it. Pre-diabetes History of mitral valve disease mitral valve prolapse with regurgitation s/p mitral valve replacement with annuloplasty band 2007 Paroxysmal atrial fibrillation Atrial flutter a flutter/a fib Reactive airway disease pt not sure denies lung or breathing problems dx to pt knowledge Hiatal hernia GERD (gastroesophageal reflux disease) Dyslipidemia Osteoarthritis History of COVID-19 x3 Most recent 08/2023- mild cough x3 days > resolved no hx hospitalization. Gall bladder disease Gallbladder polyp History of peptic ulcer History of cardiomyopathy Psoriasis Surgical History History of cardiac cath x3 total, 2 remote hx in [place] per pt. Most recent approx 2015 or 2016 [facility]. All cath's done were without findings per pt. History of colonoscopy Status post catheter ablation of atrial fibrillation x2 History of esophagogastroduodenoscopy (EGD) History of tooth extraction all upper teeth, wisdom teeth History of cardioversion Multiple most recent 09/2023 History of mitral valve repair (2007) Family History Mother Bleeding disorder Allergic rhinitis Hypertension Brother Hypertension Father , struck by lightning No problems noted. Other No family history of adverse response to anesthesia Denies family history of Prostate cancer Diabetes Ulcerative colitis IBS (irritable bowel syndrome) Social History Smoking Status: Never smoker Tobacco Type: Smokeless Tobacco (Dip or Chew) Age Started Using Tobacco: 18; Age Quit Using Tobacco: 32; Second Hand Exposure: No; Do You Dip or Chew Tobacco: No (Stopped years ago); Tobacco Cessation Education Requested by Patient: No Hx Alcohol Use: No Hx Substance Use: No Preferred Language: Estonian Communication Ability: Effective Hearing Ability: Normal Image Assembler Required: No Beliefs That Will Affect Care: None marital status: Current Living Situation: Spouse current occupational status: employed 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 ) during the past year weight has: remained stable Dental Care, Regularly: Yes Physical Activity Frequency: Daily Seatbelt Use: always Sunscreen Use: No Assistive Devices: Denture - Upper and Glasses Review of Systems Review of Systems: Per HPI. Physical Exam Physical Exam: The patient is alert and oriented. Mood and affect appeared normal. He answered all questions appropriately. HEENT: Pupils are equal and reactive to light and accommodation. Extraocular movements are intact. The sclerae are anicteric. Neuro: Cranial nerves intact Lungs: Clear to auscultation bilaterally. He has good air movement without use of accessory muscles. No rales wheezes or rhonchi. Cardiac: Heart demonstrates an irregular rhythm with slightly elevated rate. Normal S1 and S2. No murmurs on examination. Pulses: The patient has palpable radial pulses bilaterally that are equal in intensity Extremities: There was no evidence of hypoperfusion. There is no cyanosis or clubbing. There is no edema. Skin: I did not appreciate any rashes on examination today. Results & Data Vital Signs (Past 12 Hours) Vital Signs Temp Pulse Pulse Pulse Resp BP BP 01/04/25 07:00 36.6 C 114 H 14 118/73 01/04/25 03:16 36.7 C 112 H 16 104/78 01/03/25 22:52 114 H Pulse Ox O2 Del Method 01/04/25 07:00 96 Room Air 01/04/25 03:16 98 Room Air 01/03/25 22:52 Laboratory Results Abnormal Lab Results 01/03/25 01/04/25 13:47 05:48 WBC 9.66 RBC 5.01 Hgb 14.6 Hct 44.4 MCV 88.6 MCH 29.1 MCHC 32.9 RDW Std Deviation 44.2 RDW Coeff of Mariel 13.7 Plt Count 250 MPV 10.3 Immature Gran % (Auto) 0.4 Neut % (Auto) 68.1 Lymph % (Auto) 20.0 Heard % (Auto) 9.6 Eos % (Auto) 1.3 Baso % (Auto) 0.6 Neut # (Auto) 6.57 H Lymph # (Auto) 1.93 Heard # (Auto) 0.93 H Eos # (Auto) 0.13 Baso # (Auto) 0.06 Immature Gran # (Auto) 0.04 PT 11.5 INR 1.1 APTT 34 H PTT Ratio 1.3 Sodium 141 141 Potassium 3.5 4.3 D Chloride 104 107 Carbon Dioxide 28 25 Anion Gap 9 9 BUN 7 8 Creatinine 0.79 0.73 Est Cr Clr Drug Dosing 108.2 115.9 eGFR 102.97 105.46 BUN/Creatinine Ratio 8.9 L 11.0 Glucose 97 80 Calcium 9.8 9.0 Magnesium 2.1 2.0 Total Bilirubin 0.6 AST 25 ALT 32 Alkaline Phosphatase 61 Troponin I High Sens 8.5 Total Protein 8.3 Albumin 4.2 Globulin 4.1 H Albumin/Globulin Ratio 1.0 Lipase 42 TSH 2.006 Diagnostic Findings Transesophageal echocardiogram 12/31/2024: Moderately reduced LV systolic function with ejection fraction estimated to 40 to 45%. Global hypokinesis. Mildly dilated right ventricle with mildly reduced RV systolic function. No thrombus in left atrial appendage. Mitral valve annuloplasty ring with trace mitral regurgitation. No mitral stenosis. Cardioversion 12/31/2024 PG Care Time/CCT Total # of Minutes Spent Total Time Spent with Patient: Total time spent is greater than 50% in coordination of care (as documented) at patient's floor/unit and/or counseling patient: Coding Level of Care Code 19311 INT INP/OBS CARE 3/75MIN Diagnoses Atrial flutter with rapid ventricular response I48.92
[2025-01-04] MEDS: CHOLECALCIFEROL 125 MCG (5,000 UNITS) TAB PO SCH (09:52)
[2025-01-04] MEDS: AZELASTINE HCL 0.1% NASAL 200 SPRAYS/27,400 MCG BTL NAE SCH (09:52)
--- NOTE | 2025-01-04 10:03 | Discharge Summary ---
Discharge Summary Date of Service January 04, 2025 Principal Dx & Hospital Course #1 = Principal Diagnosis (1) Atrial flutter with rapid ventricular response: (2) Nausea and vomiting: (3) Epigastric abdominal pain: Plan This patient is a 51-year-old male with a history of paroxysmal atrial flutter and fibrillation s/p ablation x 2 and DC cardioversion x 3, MVP with MR s/p mitral valve replacement with annuloplasty band, GERD/gastric ulcer, IBS, hyperlipidemia, and psoriasis who presents to the ED with recurrent rapid atrial flutter, heart palpitations, as well as nausea. He was seen in the ED on 12/27 for rapid atrial flutter and received IV diltiazem. He then had a IRISH and cardioversion on 12/[address] Montero. He noticed that he went back into rapid atrial flutter again on 01/02. He also has been complaining of a lot of nausea, epigastric abdominal pain, vomiting especially after eating fatty foods, and frequent belching along with a 10 and 12 pound weight loss, and poor appetite for the last 3 months. He has been taking Eliquis for the last week and sotalol chronically. In the ED, he was given IV fluids and had a CT abdomen/pelvis without significant acute abnormalities. He had a normal troponin and otherwise normal laboratory workup. Consultation was had with cardiology by the ED physician who recommended further evaluation by electrophysiology. The patient and his were also interested in further GI consultation. The patient was admitted for rapid atrial flutter and significant nausea with vomiting and weight loss. #Rapid atrial flutter/paroxysmal atrial fibrillation-s/p ablation x 2 and DC cardioversion x 3, now back in rapid atrial flutter which he does not tolerate well. Blood pressures are stable, rates are currently in the 1 teens. electrolytes optimized with po KCl replacement. He was seen by EP who recommended transfer to [facility] for eval for ablation-accepting physician is Dr. Nedra Anthony. - Continue sotalol 80mg po bid -recommend weaning off systemic steroids as outpatient as could contribute to cardiac arrhythmias - Can give IV diltiazem as needed for HR>120 however noted that he bradys into the 30s when he converts to sinus at times - Follow BMP, magnesium and keep electrolytes optimal -hold Eliquis 5 mg p.o. twice daily for evening of 01/04 in preparation for possible ablation next day -transfer to [facility] for ablation eval #HTN/history of mitral valve replacement with annuloplasty band-BPs are controlled. Echo in 11/2023 with preserved EF, mitral valve anoplasty ring with mild MR no significant stenosis. IRISH 12/31/24 showed EF 40-45%, mildly reduced RV function. No evidence of decompensated HF at this time - Continue home lisinopril and monitor BPs #GERD/history of gastric ulcer/IBS-with recent weight loss and ongoing nausea, epigastric pains especially after eating fatty foods, low appetite. Has lost 10-12 pounds in the last few months. CT abdomen/pelvis without acute findings- w/ tiny calcified gallstone. Could be PUD vs GB dysfunction? LFTs normal. No anemia. Risk factors for PUD/Monge's include 20 year chewing tobacco history, acid reflux longstanding, hiatal hernia, and chronic IM Kenalog use for psoriasis. Had previous gastric ulcer in 2018 - Consult GI appreciated-plan for outpatient EGD after cardiac issues improved - Continue pantoprazole and increased to twice daily dosing - Consider HIDA scan outpatient if no issues found on EGD -low fat, bland diet recommended -recommend against chronic IM steroid use for psoriasis especially if PUD found on EGD-would have to wean off slowly to avoid adrenal insufficiency #Psoriasis-no acute issues, receives injections of triamcinolone IM every 6 to 8 weeks-cautioned about use of chronic steroids over the long-term like this-not a great long-term solution DVT prophylaxis- Eliquis given and now on hold for possible upcoming ablation Disposition-transfer to [facility] Notes For Next Care Provider Consider tapering off IM Kenalog injections Needs outpatient EGD and possible HIDA-to be arranged by GI Medication Changes From Visit increased Protonix to bid Admission HPI Per Admitting Provider This patient is a 51-year-old male with a history of paroxysmal atrial flutter and fibrillation s/p ablation x 2 and DC cardioversion x 3, MVP with MR s/p mitral valve replacement with annuloplasty band, GERD/gastric ulcer, IBS, hyperlipidemia, and psoriasis who presents to the ED with recurrent rapid atrial flutter, heart palpitations, as well as nausea. He was seen in the ED on 12/27 for rapid atrial flutter and received IV diltiazem. He then had a IRISH and cardioversion on 12/[address] Montero. He noticed that he went back into rapid atrial flutter again on 01/02. He also has been complaining of a lot of nausea, epigastric abdominal pain, vomiting especially after eating fatty foods, and frequent belching along with a 10 and 12 pound weight loss, and poor appetite for the last 3 months. He has been taking Eliquis for the last week and sotalol chronically. In the ED, he was given IV fluids and had a CT abdomen/pelvis without significant acute abnormalities. He had a normal troponin and otherwise normal laboratory workup. Consultation was had with cardiology by the ED physician who recommended further evaluation by electrophysiology. The patient and his were also interested in further GI consultation. The patient will be admitted for rapid atrial flutter and significant nausea with vomiting and weight loss. Discharge Exam Constitutional WD/WN, vitals as above Neck trachea midline, no thyromegaly Respiratory normal respiratory effort, lungs clear to auscultation Cardiovascular Rate/Rhythm: + tachycardic and + irregularly irregular Heart Sounds: no murmur Extremities: no edema Chest (Breasts) Chest: normal inspection of chest Gastrointestinal (Abdomen) normal bowel sounds, soft, nontender, no hepatosplenomegaly Musculoskeletal Extremities: extremities normal to inspection; no cyanosis and no clubbing Skin no rashes, warm and dry Neurologic moves all extremities and awake; no focal motor deficits Psychiatric A+Ox3, euthymic affect Lymphatic no lymphedema Discharge Plan Discharge Items Patient Disposition: Transfer Acute Care Hospital Reason For Visit: RAPID ATRIAL FLUTTER Discharge Diagnosis: Recurrent atypical atrial flutter Nausea, epigastric pain Condition on Discharge: Fair Activity: As commented below Bathing: No limitations Exercise/Sports: Rest today Non-emergency contact: Primary Care Provider, Rug Touch Up Painter and Photographic Restorer Call non-emergency contact if: you have any medication questions and your symptoms worsen Follow-up/Referrals: Clarissa Steiner DO [Primary Care Provider] - (Follow up within 1-2 weeks after discharge) Isidro Spring MD [Physician] - (GI will contact you with your outpatient date and time for EGD) Diet: Low Fat Addtl Attending Provider Instructions: Transferred to [facility] Pending Studies at Discharge: No Stand-Alone Forms: My [facility] Skilled Items Patient informed of condition?: Yes DNR: No Discharge Level of Care: Other Communicable Disease: No Discharge Prognosis: Stable Lines: Peripheral IV Urinary Catheter: No Medications and DC Order Prescriptions: Continued triamcinolone acetonide [Kenalog] 40 mg/mL suspension 40 mg IM .every 8 weeks PRN (Reason: psoriasis) Qty: 30 1RF Patient Comments: injections every 8 weeks, 9 weeks since last one lisinopril 5 mg tablet 5 mg PO QPM Qty: 90 3RF cetirizine [Zyrtec] 10 mg tablet 10 mg PO HS Qty: 90 1RF Men's 50 Plus Multivitamin 400-20-370 mcg tablet 1 tab PO DAILY cholecalciferol (vitamin D3) 125 mcg (5,000 unit) capsule 125 mcg PO DAILY sotalol 80 mg tablet 80 mg PO BID epinephrine [EpiPen 2-Kareem] 0.3 mg/0.3 mL auto-injector 0.3 mg IM DIRECTED PRN (Reason: Allergic Reaction) Patient Comments: ? rx might be out dated, pcp to get me some more PreserVision AREDS-2 250-90-40-1 mg Capsule 1 tab PO QAM Patient Comments: not sure if areds or areds 2 albuterol sulfate 2.5 mg /3 mL (0.083 %) solution for nebulization 2.5 mg INHALATION UD PRN (Reason: Shortness Of Breath) Patient Comments: no use in past 6 months triamcinolone acetonide [Nasacort Allergy] 55 mcg aerosol,spray 1 - 2 spray intranasal UD PRN (Reason: allergies) Rx Instructions: administer into each nostril azelastine 137 mcg (0.1 %) spray,non-aerosol 1 spray intranasal DAILY Patient Comments: 1 in each nostril Rx Instructions: administer into each nostril Atrovent HFA 17 mcg/actuation HFA aerosol inhaler 2 puff INHALATION UD PRN (Reason: hx illness/allergies) Patient Comments: last use spring 2024, at least 5 months per pt Changed pantoprazole 40 mg tablet,delayed release (DR/EC) 40 mg PO BID Qty: 60 0RF Held Eliquis 5 mg tablet 5 mg PO BID Hold Instructions: Resume on 01/09/25. hold until told to restart by your Rug Touch Up Painter Rx Instructions: PER PT "JUST STARTED TAKING". Discharge Orders: Discharge Order (Routine); Ordered 01/04/25 Ordered By: Sudha Sebastian Admission Data Admit Date/Time: 01/03/25 18:28 Attending Provider: Sudha Sebastian Admit Provider: Sudha Sebastian Primary Care Provider: Clarissa Steiner Other Providers: Sudha Sebastian; Krish Montero; [facility] Stay Data Consultations 01/03/25 17:36 ED Decision to Admit Stat 01/03/25 18:18 Consult Cardiology Routine 01/03/25 20:56 Consult Gastroenterology Routine Diagnostic Imagining Performed 01/03/25 14:16 CT abd pelvis IV con only Stat Discharge Instructions Given to Patient (Per Discharging Provider) Transferred to [facility] Total Time Total Time Spent Total Time Spent (In Minutes): 35 min Coding Level of Care Code 03485 INP/OBS DISCH >30 MIN Diagnoses Atrial flutter with rapid ventricular response I48.92 Nausea and vomiting R11.2 Epigastric abdominal pain R10.13
[2025-01-04] MEDS: ACETAMINOPHEN 325 MG TAB PO PRN (11:05)
--- NOTE | 2025-01-04 11:06 | Gastrointestinal Consultation ---
Date of Consultation January 04, 2025 Assessment & Plan (1) Epigastric abdominal pain: Plan 59yowm with h/o Hiatal hernia with GERD, pAfib, PUD, pre-diabetes is seen today on hospital rounds for epigastric abdominal pain. (1) Epigastric Abdominal Pain with solid food esophageal dysphagia. - CBC and CMP unremarkable. CT revealed a stable 3cm liver mass suspected to be a hemangioma. Stable since 2015. Tiny calcifications in gallbladder without thickening or signs of inflammation. - DDX - PUD/Gastritis, Esophageal stricture, Biliary dysfunction among other causes reviewed. - Agree with BID PPI therapy as ordered by primary team. - No need for inpatient intervention. May follow up as outpatient. - Understanding and satisfaction voiced. Supervising Physician Co-Signing Physician Notes I personally saw and examined the patient. I have reviewed the chart and agree with the documentation provided by the [employer]CREEN [employer]ER including discussion about the assessment, treatment and plan. Briefly, 59yowm with h/o Hiatal hernia with GERD, pAfib, PUD, pre-diabetes is seen today on hospital rounds for epigastric abdominal pain. Patient was seen in [facility] ER on with elevated HR and nausea. Reviewed ER work up. LFTs and CBC unremarkable. CT revealed a stable 3cm liver mass suspected to be a hemangioma. Stable since 2015. Tiny calcifications in gallbladder without thickening or signs of inflammation. He was found to be in RVR and is now being transferred to [facility] for further management he is complaining of early satiety weight loss and some epigastric abdominal pain with food. He does not have a limited appetite and is only able to take some liquid and semisoft food. He deserves an endoscopy and will defer to [facility] as he is being transferred there for cardiac management for his A-fib with RVR. By report he has a history of gastritis small peptic ulcer disease and a normal colonoscopy in 2020. For now PPI twice daily small frequent meals. History of Present Illness Reason for Consultation: Epigastric abdominal pain Requesting Physician: Dr. Sebastian Attending Physician: Sudha Sebastian MD History of Present Illness [id number] with h/o Hiatal hernia with GERD, pAfib, PUD, pre-diabetes is seen today on hospital rounds for epigastric abdominal pain. Patient was seen in [facility] ER on with elevated HR and nausea. Reviewed ER work up. LFTs and CBC unremarkable. CT revealed a stable 3cm liver mass suspected to be a hemangioma. Stable since 2016. Tiny calcifications in gallbladder without thickening or signs of inflammation. He was found to be in RVR and is now being transferred to [facility] for further management. Patient reports that he's been having symptoms intermittently over the last 3 months. Associated with sensation of food getting stuck in lower chest (solid foods, breads, crackers, meats). He's lost about 10-12 pounds. Has a remote history of hiatal hernia and ulcer but no recent EGD. He also reports an episode of acute nausea and vomiting that happened the other day after eating two tacos. This was characterized as yellow clear fluids and food product. No coffee grounds. He denies any fevers, chills, diarrhea, melena or hematochezia. Family history - Denies any celiac, IBD or GI cancers. Social History - Smokeless tobacco use x 20 years. Quit in . No alcohol use. Surgical History - Mitral valve repair, Catheter ablation, EGD/Colonoscopy. Pert[facility] Diagnostics Colonoscopy 2020 Case Findings: The perianal and digital rectal examinations were normal. Non-bleeding internal hemorrhoids were found during retroflexion. The hemorrhoids were small. Several random biopsies were obtained with cold forceps for histology in the entire colon. Impression: - Non-bleeding internal hemorrhoids. - Several random biopsies were obtained in the entire colon. Recommendation: - Resume previous diet. - Continue present medications. - Repeat colonoscopy for surveillance based on pathology results. - Return to primary care physician as previously scheduled. Pathology Colon, random, biopsy: - Benign colonic mucosa - Negative for acute and chronic colitis - Negative for microscopic colitis - Negative for dysplasia and malignancy at 0939 Allergies Allergy/AdvReac Type Severity Reaction Status Date / Time bee venom protein (honey bee) Allergy Severe Difficulty Verified 12/30/24 08:41 Breathing Home Medications Medication Instructions Recorded Confirmed Type cetirizine 10 mg tablet (Zyrtec) 10 mg PO HS #90 tabs 09/29/18 01/03/25 Rx aswlnxiscqkl-nbh-lueey acid-vit 1 tab PO DAILY 06/01/20 01/03/25 History K-lycop 400 mcg-20 mcg-370 mcg tablet (Men's 50 Plus Multivitamin) cholecalciferol (vitamin D3) 125 125 mcg PO DAILY 11/09/20 01/03/25 History mcg (5,000 unit) capsule triamcinolone acetonide 40 mg/mL 40 mg IM .every 8 weeks PRN 04/26/24 01/03/25 Rx suspension for injection (Kenalog) psoriasis #30 mL lisinopril 5 mg tablet 5 mg PO QPM #90 tabs 07/09/24 01/03/25 Rx apixaban 5 mg tablet (Eliquis) 5 mg PO BID 12/22/24 01/03/25 History sotalol 80 mg tablet 80 mg PO BID 12/22/24 01/03/25 History epinephrine 0.3 mg/0.3 mL 0.3 mg IM DIRECTED PRN Allergic 12/27/24 01/03/25 History injection, auto-injector (EpiPen Reaction 2-Kareem) albuterol sulfate 2.5 mg/3 mL 2.5 mg inhalation UD PRN Shortness 12/30/24 01/03/25 History (0.083 %) solution for nebulization Of Breath azelastine 137 mcg (0.1 %) nasal 1 spray intranasal DAILY 12/30/24 01/03/25 History spray ipratropium bromide 17 2 puff inhalation UD PRN hx 12/30/24 01/03/25 History mcg/actuation HFA aerosol inhaler illness/allergies (Atrovent HFA) triamcinolone acetonide 55 mcg 1 - 2 spray intranasal UD PRN 12/30/24 01/03/25 History nasal spray aerosol (Nasacort allergies Allergy) vit C 250 mg-vit E 90 mg-zinc 40 1 tab PO QAM 12/30/24 01/03/25 History mg-copper 1 fm-cgmcng-xrjlvb capsule (PreserVision AREDS-2) pantoprazole 40 mg tablet,delayed 40 mg PO BID #60 tabs 01/04/25 Rx release Patient History Medical History History of anesthesia reaction per pt; harder to get put under, with most recent cardioversion (09/2023) they gave me a little extra and I didn't feel anything, the cardioversion prior I wasn't fully under and I felt it. Pre-diabetes History of mitral valve disease mitral valve prolapse with regurgitation s/p mitral valve replacement with annuloplasty band 2007 Paroxysmal atrial fibrillation Atrial flutter a flutter/a fib Reactive airway disease pt not sure denies lung or breathing problems dx to pt knowledge Hiatal hernia GERD (gastroesophageal reflux disease) Dyslipidemia Osteoarthritis History of COVID-19 x3 Most recent 08/2023- mild cough x3 days > resolved no hx hospitalization. Gall bladder disease Gallbladder polyp History of peptic ulcer History of cardiomyopathy Psoriasis Surgical History History of cardiac cath x3 total, 2 remote hx in [place] per pt. Most recent approx 2016 or 2017 [facility]. All cath's done were without findings per pt. History of colonoscopy Status post catheter ablation of atrial fibrillation x2 History of esophagogastroduodenoscopy (EGD) History of tooth extraction all upper teeth, wisdom teeth History of cardioversion Multiple most recent 09/2023 History of mitral valve repair (2007) Family History Mother Bleeding disorder Allergic rhinitis Hypertension Brother Hypertension Father , struck by lightning No problems noted. Other No family history of adverse response to anesthesia Denies family history of Prostate cancer Diabetes Ulcerative colitis IBS (irritable bowel syndrome) Social History Smoking Status: Never smoker Tobacco Type: Smokeless Tobacco (Dip or Chew) Age Started Using Tobacco: 18; Age Quit Using Tobacco: 32; Second Hand Exposure: No; Do You Dip or Chew Tobacco: No (Stopped years ago); Tobacco Cessation Education Requested by Patient: No Hx Alcohol Use: No Hx Substance Use: No Preferred Language: Tristanian Communication Ability: Effective Hearing Ability: Normal Tow Motor Operator Required: No Beliefs That Will Affect Care: None marital status: Current Living Situation: Spouse current occupational status: employed 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 ) during the past year weight has: remained stable Dental Care, Regularly: Yes Physical Activity Frequency: Daily Seatbelt Use: always Sunscreen Use: No Assistive Devices: Denture - Upper and Glasses Review of Systems Review of Systems: See HPI Physical Exam Physical Exam: Constitutional: NAD. Alert. Answering questions appropriately. Respiratory: Breathing is even, non-labored. Lungs matamoros are clear to auscultation anteriorly. Cardiovascular: Regular Rate and Rhythm, no murmurs, rubs or gallops appreciat ed. Gastrointestinal (Abdomen): Normoactive bowel sounds x4, soft, non-distended, non-tender. Musculoskeletal: Lying in bed comfortably. No peripheral edema. Results & Data Vital Signs (Past 12 Hours) Vital Signs Temp Pulse Pulse Pulse Resp BP BP 01/04/25 07:00 97.9 F 114 H 14 118/73 01/04/25 03:16 98.1 F 112 H 16 104/78 01/03/25 22:52 114 H Pulse Ox O2 Del Method 01/04/25 07:00 96 Room Air 01/04/25 03:16 98 Room Air 01/03/25 22:52 Laboratory Results 01/04/25 01/03/25 05:48 13:47 WBC 9.66 RBC 5.01 Hgb 14.6 Hct 44.4 MCV 88.6 MCH 29.1 MCHC 32.9 RDW Std Deviation 44.2 RDW Coeff of Mariel 13.7 Plt Count 250 MPV 10.3 Immature Gran % (Auto) 0.4 Neut % (Auto) 68.1 Lymph % (Auto) 20.0 [place] % (Auto) 9.6 Eos % (Auto) 1.3 Baso % (Auto) 0.6 Neut # (Auto) 6.57 H Lymph # (Auto) 1.93 [place] # (Auto) 0.93 H Eos # (Auto) 0.13 Baso # (Auto) 0.06 Immature Gran # (Auto) 0.04 PT 11.5 INR 1.1 APTT 34 H PTT Ratio 1.3 Sodium 141 141 Potassium 4.3 D 3.5 Chloride 107 104 Carbon Dioxide 25 28 Anion Gap 9 9 BUN 8 7 Creatinine 0.73 0.79 Est Cr Clr Drug Dosing 115.9 108.2 eGFR 105.46 102.97 BUN/Creatinine Ratio 11.0 8.9 L Glucose 80 97 Calcium 9.0 9.8 Magnesium 2.0 2.1 Total Bilirubin 0.6 AST 25 ALT 32 Alkaline Phosphatase 61 Troponin I High Sens 8.5 Total Protein 8.3 Albumin 4.2 Globulin 4.1 H Albumin/Globulin Ratio 1.0 Lipase 42 TSH 2.006 Diagnostic Findings Chest X-Ray 01/03/25 14:07 SINGLE VIEW CHEST CLINICAL HISTORY: Dysrhythmia FINDINGS: An AP, portable, upright chest radiograph is compared to chest x-ray and chest CT dated 12/27/2024. The patient is status post midline sternotomy and cardiac valve surgery. The heart is enlarged. There is pulmonary vascular congestion. Mild atelectasis is noted at the lung bases. No large pleural effusion or pneumothorax is seen. The skeletal structures are osteopenic. The bony thorax is grossly intact. IMPRESSION: Cardiomegaly with pulmonary vascular congestion. ACT 112: Negative or not required by law. Electronically signed by: Ivan Maya M.D. 01/03/2025 2:34 PM Abdomen/Pelvis CT 01/03/25 14:16 CT SCAN OF THE ABDOMEN AND PELVIS WITH IV CONTRAST CLINICAL HISTORY: Abdominal pain and nausea. COMPARISON STUDY: 05/17/2022 TECHNIQUE: Following the IV administration of 90 cc of Optiray 320, CT scan of the abdomen and pelvis is performed from the lung bases to the proximal femora. Images are reviewed in the axial, sagittal, and coronal planes. IV contrast was administered without complication. A dose lowering technique was utilized adhering to the principles of ALARA. CT DOSE: 1164.82 mGy.cm FINDINGS: Lung bases: There are no pleural effusions. There is no basilar parenchymal consolidation. Liver: There are 2 tiny left lobe hepatic hypodensities, possibly representing cysts. Within the right lobe of the liver posteriorly there is a 3 cm hypodense lesion. This remain similar in size to the prior 2022 study when it measured 28 mm. There is been reported to have been present on scans dating back to 2016. The lesion was hyperechoic on ultrasound and likely represents incidental hemangioma. Gallbladder: There is a tiny calcified gallstone. There is no significant gallbladder wall thickening and no pericholecystic edema. Spleen: No splenic masses are visualized. Pancreas: No pancreatic masses are visualized. Adrenal glands: No adrenal masses are visualized Kidneys: There is a 3 mm mid pole left renal calcification. There is a 9 mm right renal cyst. No solid renal masses are visualized. There is no hydronephrosis. Abdominal vasculature: There is no evidence of abdominal aortic dilatation. Bowel: There are no transition zones to indicate bowel obstruction. The appendix is visualized and appears normal. No acute inflammatory changes are visualized. Peritoneum: There is no free air. There is no ascites. Lymphadenopathy: There is no pathologic abdominal or pelvic lymphadenopathy. Pelvic viscera: No abnormal pelvic masses are visualized. The bladder is unremarkable in appearance. Skeletal structures: No suspicious lytic or blastic skeletal lesions are visualized. IMPRESSION: 1. No acute intra-abdominal findings 2. No evidence of bowel obstruction. No evidence of free air 3. No acute inflammatory changes. 4. Normal appendix. 5. 3 cm right hepatic lobe hypodense lesion likely representing a hemangioma ACT 112: Negative or not required by law. Electronically signed by: Charles Gordon M.D. 01/03/2025 4:00 PM PG Care Time/CCT Total # of Minutes Spent Total Time Spent with Patient: Total time spent is greater than 50% in coordination of care (as documented) at patient's floor/unit and/or counseling patient: Coding Level of Care Code 32352 IN/OBS CONSULT LVL 3,45M Diagnoses Epigastric abdominal pain R10.13
[2025-01-04 11:24] VITALS: PULSE 112; O2SAT 98
[2025-01-04 15:48] VITALS: RESP 18; TEMP 97.5
[2025-01-04 18:14] VITALS: BP 104/78
--- NOTE | 2025-01-05 05:57 | Electrocardiogram Report ---
Test Reason : Blood Pressure : */* mmHG Vent. Rate : 112 BPM Atrial Rate : 112 BPM P-R Int : 120 ms QRS Dur : 96 ms QT Int : 360 ms P-R-T Axes : -24 25 -2 degrees QTcB Int : 492 ms Atrial flutter with 2 to [address] and T wave abnormality Prolonged QT Abnormal ECG When compared with ECG of 31-Dec-2024 07:48, Atrial flutter has replaced Sinus rhythm Vent. rate has increased by 47 bpm Nonspecific T wave abnormality has replaced inverted T waves in Anterior leads Confirmed by Krish Montero ([id number]) on 01/05/2025 5:57:25 AM Referred By: REFERRED SELF Confirmed By: Krish Montero
--- NOTE | 2025-01-05 05:58 | Electrocardiogram Report ---
Test Reason : Blood Pressure : */* mmHG Vent. Rate : 114 BPM Atrial Rate : 114 BPM P-R Int : 128 ms QRS Dur : 86 ms QT Int : 350 ms P-R-T Axes : * 13 21 degrees QTcB Int : 482 ms Atrial flutter with 2 to 1 block Minimal voltage criteria for LVH, may be normal variant ( R in aVL ) Nonspecific T wave abnormality QTcB >= 480 msec Abnormal ECG When compared with ECG of 03-Jan-2025 13:47, No significant change Confirmed by Krish Montero ([id number]) on 01/05/2025 5:58:27 AM Referred By: REFERRED SELF Confirmed By: Krish Montero
== END 2025-01-04 16:00 | disposition short-term general hospital (02) ==
LOC: SUATTDRO → ED 13:37 → 2E 13:37